=== PATIENT | female | born 1990 | race Caucasian/White ===

== ENCOUNTER 2016-06-02 10:20 | Emergency (ER) | payer BC ==
[~2016-06-02 10:20] MED LIST: MOTR200T44 PO; NORCOTAB PO
[2016-06-02] MEDS ORDERED: KETOROLAC 30 MG/ML VIAL (J1885) As Ordered ONE (10:46)
[2016-06-02] MEDS ORDERED: METOCLOPRAMIDE INJ 10MG/2ML VIAL (J2765) As Ordered ONE (10:46)
[2016-06-02 10:54] LABS: BASO % 0.2 % (0.0-1.0); EOS # 0.2 K/mm3 (0.0-0.50); EOS % 1.4 % (0.0-3.0); LARGE UNSTAINED CELL # 0.1 K/mm3 (0.0-0.4); LARGE UNSTAINED CELL % 0.4 % (0.0-4.0); LYMPH # 0.6 K/mm3 (1.5-6.5); MEAN CORPUSCULAR HEMOGLOBIN 30.7 pg (27.0-33.0); MEAN CORPUSCULAR HGB CONC 34.8 g/dl (32.0-36.5); MEAN CORPUSCULAR VOLUME 88.3 fl (80.0-96.0); MONO # 0.5 K/mm3 (0.0-0.8); NEUTROPHILS # 14.4 K/mm3 (1.8-7.7); NEUTROPHILS % 90.9 % (36.0-66.0); PLATELET COUNT, AUTOMATED 409 k/mm3 (150-450); RED CELL DISTRIBUTION WIDTH 11.8 % (11.5-14.5); WHITE BLOOD COUNT 15.8 K/mm3 (4.0-10.0)
[2016-06-02 11:30] LABS: ALBUMIN 4.7 GM/DL (3.2-5.2); ALBUMIN/GLOBULIN RATIO 1.42 (1.00-1.93); ALKALINE PHOSPHATASE 121 U/L (45-117); ALT/SGPT 29 U/L (12-78); AMYLASE 43 U/L (25-115); ANION GAP 12 MEQ/L (8-16); AST/SGOT 18 U/L (15-37); BILIRUBIN,DIRECT 0.2 MG/DL (0.0-0.2); BILIRUBIN,TOTAL 0.8 MG/DL (0.2-1.0); BLOOD UREA NITROGEN 19 MG/DL (7-18); CALCIUM LEVEL 8.9 MG/DL (8.5-10.1); CARBON DIOXIDE LEVEL 22 MEQ/L (21-32); CHLORIDE LEVEL 109 MEQ/L (98-107); CREATININE FOR GFR 1.04 MG/DL (0.55-1.02); GLOMERULAR FILTRATION RATE > 60.0 (>60); GLUCOSE, FASTING 124 MG/DL (70-105); POTASSIUM SERUM 3.9 MEQ/L (3.5-5.1); SODIUM LEVEL 143 MEQ/L (136-145)
[2016-06-02 11:36] LABS: THYROXINE (T4) 11.3 UG/DL (4.5-12.0)
--- NOTE | 2016-06-02 11:40 | REP ---
ABDOMEN FLAT UPRIGHT, PA CHEST, THREE VIEWS: HISTORY: Abdominal pain. COMPARISON: 03/06/2012 Air is present in small and large intestine. Several air fluid levels are present. There are no dilated loops of intestine. There is no pneumoperitoneum. Surgical clips are present in the right upper quadrant. There is spina bifida occulta of S1. The lungs are clear. IMPRESSION: Nonspecific bowel gas pattern. Signed by Nate Heck MD 06/02/2016 11:43 A
[2016-06-02] MEDS ORDERED: GI COCKTAIL 50ML BTL(HYOSCYAMINE/MAALOX/LIDOCAINE VISCOUS)(1:3:1) As Ordered ONE (13:00)
[2016-06-02] MEDS ORDERED: SUCRALFATE 1 GM TAB As Ordered ONE (13:38)
[2016-06-02 14:08] LABS: CONTROL LINE HCG INT CTR LINE PRESENT
[2016-06-02] MEDS ORDERED: ISOVUE-370 76% 100ML VIAL (Q9967) As Ordered ONE (14:32)
[2016-06-02] MEDS ORDERED: PROMETHAZINE INJ 25 MG/ML VIAL (J2550) As Ordered ONE (14:47)
--- NOTE | 2016-06-02 15:40 | REP ---
CT abdomen and pelvis with IV but without oral contrast: History: Abdominal pain. Comparison study February 05, 2016. Findings: Digital preliminary mat roller radiograph is unremarkable. A single tubal ligation clamp is visible on the right side of the pelvis. This is unchanged from the comparison study. The lung bases are clear. There is no evidence of pleural effusion or upper abdominal ascites. The liver and the spleen are normal in size, homogeneous in texture. There are clips in the gallbladder fossa. No adrenal lesion is seen on either side. Pancreas is unremarkable. Kidneys enhance symmetrically and are morphologically intact. Normal caliber aorta is seen. No retroperitoneal mass or adenopathy is seen. There is mild mural thickening in multiple jejunal and proximal ileal loops in the abdomen. No evidence of obstruction. No mass or adenopathy seen. There is fluid in the proximal and distal colon without distension. Mild mural thickening is seen in the colon as well. Nonspecific enterocolitis pattern. A normal appendix is seen. No evidence of free air. Impression: Nonspecific enterocolitis pattern in the small and large intestine with mild mural thickening and fluid content. Normal appendix. No other abnormality. Post cholecystectomy. A single tubal ligation clamp is seen on the right side. Signed by Papi Levy MD 06/02/2016 04:20 P
[2016-06-02] MEDS ORDERED: PANTOPRAZOLE 40MG INJ (PROTONIX) (C9113) As Ordered ONE (16:17)
[2016-06-02] MEDS ORDERED: ONDANSETRON 4MG/2ML VIAL (J2405) As Ordered ONE (16:18)
--- NOTE | 2016-06-02 18:39 | EDDOCDS ---
Physician Documentation [facility] Name: Christiane Martinez Age: 26 yrs Sex: Female : 1990 Arrival Date: 06/02/2016 Time: 10:20 Bed H4 Private MD: Cecilio Feldman MD Disposition: 06/02/16 16:59 Discharged to Home/Self Care. Impression: Vomiting, Diarrhea, unspecified. - Condition is Stable. - Discharge Instructions: Diarrhea, Clear Liquid Diet, Nausea and Vomiting, Diarrhea, [id number]. - Prescriptions for ZOFRAN ODT 4 mg - dissolve 1 tablet by ORAL route 4 times per day As needed do not chew, do not swallow whole; 10 tablet. - Medication Reconciliation, Local Pharmacy Hours, Work Release Form - 2 day form. - Follow up: Emergency Department; When: Tomorrow; Reason: Recheck today's complaints. - Problem is new. - Symptoms have improved. Historical: - Allergies: Morphine; Dilaudid (increases abdomenial pain ); - Home Meds: 1. Chantix 1 mg Oral tab 1 tab 2 times per day - PMHx: none; - PSHx: Laparoscopy; Bunion Surgery; Salpingectomy- Left; Tubal ligation; X 2; lysis of adhesions; Cholecystectomy; - Social history: Smoking status: Patient states former smoker of tobacco. No barriers to communication noted, The patient speaks fluent Sami, Speaks appropriately for age. - Family history: Not pertinent. - : The pt / caregiver states he / she is not on anticoagulants. Home medication list is obtained from the patient. - Exposure Risk Screening:: None identified. 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 6 in. (167.64 cm); Pain 10/10; 10:34 BP 127 / 86 (auto/); ms2 10:35 Pulse 140 MON; Resp 20 S; Pulse Ox 98% ; ms2 10:49 BP 144 / 79 (auto/); ead 10:50 Pulse 120 MON; Resp 20; Pulse Ox 99% on R/A; ead 11:04 BP 134 / 66 (auto/); ms2 11:05 Pulse 108 MON; Resp 22 S; Pulse Ox 98% ; ms2 11:18 BP 135 / 66 (auto/); ms2 11:19 Pulse 112 MON; Resp 20 S; Pulse Ox 97% ; ms2 11:33 BP 131 / 62 (auto/); ms2 11:34 Pulse 102 MON; Resp 20 S; Pulse Ox 98% ; ms2 11:48 BP 127 / 63 (auto/); ms2 11:49 Pulse 100 MON; Resp 20; Pulse Ox 99% ; ms2 12:03 BP 111 / 58 (auto/); ms2 12:04 Pulse 100 MON; Resp 20 S; Pulse Ox 98% ; ms2 12:18 BP 100 / 59 (auto/); ms2 12:19 Pulse 94 MON; Resp 20 S; Pulse Ox 97% ; ms2 12:33 BP 120 / 66 (auto/); ms2 12:33 Pulse 106 MON; Resp 20 S; Pulse Ox 98% ; ms2 12:48 BP 121 / 68 (auto/); ms2 12:49 Pulse 90 MON; Resp 20 S; Pulse Ox 98% ; ms2 13:18 BP 115 / 57 (auto/); ms2 13:18 Pulse 100 MON; Resp 20 S; Pulse Ox 97% ; ms2 13:33 BP 116 / 58 (auto/); ms2 13:34 Pulse 90 MON; Resp 20 S; Pulse Ox 98% ; ms2 13:48 BP 114 / 56 (auto/); ms2 13:49 Pulse 90 MON; Resp 20 S; Pulse Ox 99% ; ms2 14:03 BP 136 / 78 (auto/); ms2 14:03 Pulse 106 MON; Resp 20 S; ms2 14:18 BP 127 / 67 (auto/); ms2 14:18 Pulse 112 MON; Resp 20 S; ms2 14:54 BP 134 / 76 (auto/); ms2 14:55 Pulse 110 MON; Resp 20 S; Pulse Ox 98% ; ms2 15:03 BP 133 / 76 (auto/); ms2 15:03 Pulse 108 MON; Resp 20 S; Pulse Ox 98% ; ms2 15:18 BP 128 / 68 (auto/); ms2 15:18 Pulse 118 MON; Resp 20 S; ms2 15:33 BP 128 / 61 (auto/); ms2 15:34 Pulse 102 MON; Resp 20 S; ms2 15:48 BP 130 / 63 (auto/); ms2 15:49 Pulse 98 MON; Resp 20 S; ms2 16:03 BP 130 / 62 (auto/); ms2 16:04 Pulse 102 MON; Resp 20 S; ms2 16:18 BP 129 / 61 (auto/); ms2 16:19 Pulse 104 MON; Resp 20 S; ms2 16:33 BP 122 / 59 (auto/); ms2 16:33 Pulse 94 MON; Resp 20 S; ms2 16:49 BP 129 / 61 (auto/); ms2 16:50 Pulse 96 MON; Resp 20 S; ms2 17:04 BP 130 / 63 (auto/); ms2 17:05 Pulse 86 MON; Resp 20 S; ms2 17:19 BP 130 / 65 (auto/); ms2 17:20 Pulse 90 MON; Resp 20 S; ms2 17:49 BP 125 / 68; Pulse 112; Resp 20 S; ms2 10:22 Body Mass Index 34.70 (97.52 kg, 167.64 cm) sew MDM: 10:43 Undress patient appropriately for examination ordered. sd1 10:43 NS 0.9% 1000 ml IV at bolus once ordered. sd1 10:43 Metoclopramide 10 mg IV at 40 mg/hr once over 15 mins ordered. sd1 10:43 ketorolac 30 mg IVP once ordered. sd1 10:44 Amylase Ordered. EDMS 10:44 Basic Metabolic Profile Ordered. EDMS 10:44 CBC with Diff Ordered. EDMS 10:44 Lipase Ordered. EDMS 10:44 Liver Profile Ordered. EDMS 10:44 HCG,Serum Qualitative Ordered. EDMS 10:44 Abdomen, Flat\E\Upright,PA Chest Ordered. EDMS 10:44 NOTHING BY MOUTH+DIET ordered. EDMS 10:44 Thyroid Profile Ordered. EDMS 12:05 Basic Metabolic Profile Reviewed. sd1 12:05 CBC with Diff Reviewed. sd1 12:05 Liver Profile Reviewed. sd1 12:05 Thyroid Profile Reviewed. sd1 12:05 Amylase Reviewed. sd1 12:05 Lipase Reviewed. sd1 12:31 Abdomen, Flat\E\Upright,PA Chest Reviewed. sd1 12:33 GI Cocktail - (Alum-Mag Hydroxide-Simeth 30 ml, Lidocaine 10 ml, Hyoscyamine 10 ml) PO sd1 once; Pre-mixed 50mL unit dose ordered. 13:19 Sucralfate 1 grams PO once ordered. sd1 13:32 CLEAR LIQUID+DIET ordered. EDMS 14:18 Basic Metabolic Profile Reviewed. sd1 14:18 Liver Profile Reviewed. sd1 14:18 Amylase Reviewed. sd1 14:18 Lipase Reviewed. sd1 14:18 HCG,Serum Qualitative Reviewed. sd1 14:19 Promethazine 25 mg IVP once; dilute and administer 30-60 minutes ordered. sd1 14:29 CT ABD & PELVIS: IV Contrast Only Ordered. EDMS 15:13 pantoprazole 40 mg IV at bolus once ordered. sd1 15:13 Ondansetron 4 mg IVP once ordered. sd1 15:16 [facility] Payment Agreement was scanned into [employer] and attached to record. jp5 15:16 Financial registration complete. jp5 15:40 NS 0.9% 1000 ml IV at bolus once ordered. sd1 Administered Medications: 10:44 Drug: NS 0.9% 1000 ml [sodium chloride 0.9 % intravenous solution] Route: IV; Rate: ead bolus; Site: right antecubital; 10:54 Drug: Metoclopramide 10 mg [metoclopramide 5 mg/mL injection solution] Route: IV; Rate: ead 40 mg/hr; Infused Over: 15 mins; Site: right antecubital; 10:54 Drug: ketorolac 30 mg [ketorolac 30 mg/mL (1 mL) injection solution (1 mL)] Route: IVP; ead Site: right antecubital; 12:04 Drug: GI Cocktail - (Alum-Mag Hydroxide-Simeth Suspension 225 mg-200 mg-25 mg/5 mL 30 ms2 ml, Lidocaine Liquid 2 % 10 ml, Hyoscyamine Liquid 10 ml) Route: PO; 13:39 Drug: Sucralfate 1 grams [sucralfate 1 gram tablet (1 tabs)] Route: PO; ms2 14:55 Drug: Promethazine 25 mg [promethazine 25 mg/mL injection solution (1 mL)] Route: IVP; ms2 Site: right antecubital; 16:25 Drug: Ondansetron 4 mg Route: IVP; Site: right antecubital; ms2 16:25 Drug: NS 0.9% 1000 ml [sodium chloride 0.9 % intravenous solution] Route: IV; Rate: ms2 bolus; Site: right antecubital; 16:26 Drug: pantoprazole 40 mg [pantoprazole 40 mg intravenous solution] Route: IV; Rate: ms2 bolus; Site: right antecubital; Signatures: Dispatcher [employer] Bina Booker MD MD sd1 Raul WillRN RN ms2 Saurabh Bunch RN RN mlb1 Luis Del Cid jp5 Apryl Wong RN The chart was reviewed and I authenticate all verbal orders and agree with the evaluation and treatment provided.Corrections: (The following items were deleted from the chart) 10:37 10:35 Home Meds: none; mlb1 mlb1 Attachments: 15:16 [facility] Payment Agreement jp5 MTDD
--- NOTE | 2016-06-02 18:40 | EDDOCDS ---
Nurse's Notes [facility] Name: Christiane Martinez Age: 26 yrs Sex: Female : 1990 Arrival Date: 06/02/2016 Time: 10:20 Bed H4 Private MD: Cecilio Feldman MD Diagnosis: Vomiting;Diarrhea, unspecified Presentation: 06/02 10:31 Presenting complaint: Patient states: Awoke at 0200 this am with chest, abdominal pain mlb1 with nausea/ vomiting. Risk factors: the patient reports no vaginal bleeding. 10:53 Adult Sepsis Screening: The patient does not have new or worsening altered mentation. mlb1 Patient's respiratory rate is less than 22. Systolic blood pressure is greater than 100. Patient has a qSOFA score of 0- Negative Sepsis Screen. Suicide/Homicide risk assessment- the patient denies having any suicidal and/or homicidal ideations and does not present with any other emotional, behavioral or mental health complaints. Status: Patient is not a manager office services or dependent. Transition of care: patient was not received from another setting of care. 10:53 Acuity: SAIDA Level 3 mlb1 10:53 Method Of Arrival: Walkin/Carried/Asstd mlb1 Triage Assessment: 10:35 General: Appears distressed, Behavior is crying. Pain: Location: anterior aspect of mlb1 left upper chest, RUQ, RLQ Pain currently is 8 out of 10 on a pain scale. HIV screening NA for this visit Offered previously. GI: Reports nausea, vomiting. CRITICAL CARE NURSE: 10:37 LMP 05/15/2016 mlb1 Historical: - Allergies: Morphine; Dilaudid (increases abdomenial pain ); - Home Meds: 1. Chantix 1 mg Oral tab 1 tab 2 times per day - PMHx: none; - PSHx: Laparoscopy; Bunion Surgery; Salpingectomy- Left; Tubal ligation; X 2; lysis of adhesions; Cholecystectomy; - Social history: Smoking status: Patient states former smoker of tobacco. No barriers to communication noted, The patient speaks fluent Swedish, Speaks appropriately for age. - Family history: Not pertinent. - : The pt / caregiver states he / she is not on anticoagulants. Home medication list is obtained from the patient. - Exposure Risk Screening:: None identified. Screenin:51 Screening information is obtained from prior medical records. Fall risk: No risks ms2 identified. Assistance ADL's: requires no assistance with activities of daily living. Abuse/DV Screen: The patient / caregiver reports he/she is: not in a situation that causes fear, pain or injury. Nutritional screening: No deficits noted. Advance Directives: Currently, there is no health care proxy. There is no active DNR order. There is no living will. There is no Power of Oil Rig Driller. Advance directive information has not previously been placed in an [facility] medical record. Further advance directive information is declined. home support is adequate. Assessment: 11:20 General: first contact with pt---pt noted to be teary at times---parents with pt ---pt ms2 requesting ice chips-mouth dry. Neurological: Level of Consciousness is awake, alert, obeys commands. Cardiovascular: Rhythm is sinus rhythm No ectopy. Respiratory: No deficits noted. Airway is patent Respiratory effort is even, unlabored, Respiratory pattern is regular, symmetrical. GI: Abdomen is non- distended obese. Derm: Skin is pink, warm & dry. Musculoskeletal: Range of motion intact in all extremities. 12:59 General: Appears in no apparent distress, comfortable, Behavior is cooperative. Pain: ms2 Location: abdome Pain currently is 6 out of 10 on a pain scale. Neurological: No deficits noted. Cardiovascular: Rhythm is sinus rhythm No ectopy. Respiratory: No deficits noted. GI: Abdomen is non- distended obese. Derm: Skin is pink, warm & dry. Musculoskeletal: No deficits noted. 13:40 Adult Sepsis Screening: The patient does not have new or worsening altered mentation. ms2 Patient's respiratory rate is less than 22. Systolic blood pressure is greater than 100. Patient has a qSOFA score of 0- Negative Sepsis Screen. General: Appears in no apparent distress, resting --pain decreased. Behavior is cooperative. Pain: Pain currently is 4 out of 10 on a pain scale. Neurological: No deficits noted. Cardiovascular: Rhythm is sinus rhythm. Respiratory: No deficits noted. Derm: Skin is pink, warm & dry. Musculoskeletal: No deficits noted. 14:47 General: Appears in no apparent distress, nauseated --pt aware to receive for this. to ms2 and from ct --no reaction to ct contrast. Neurological: No deficits noted. Respiratory: Respiratory effort is even, unlabored. Derm: Skin is pink, warm & dry. 15:28 General: Appears in no apparent distress, Behavior is cooperative. Neurological: No ms2 deficits noted. Cardiovascular: Rhythm is sinus rhythm. Respiratory: No deficits noted. Derm: Skin is pink, warm & dry. Musculoskeletal: Range of motion intact in all extremities. 16:25 Adult Sepsis Screening: The patient does not have new or worsening altered mentation. ms2 Patient's respiratory rate is less than 22. Systolic blood pressure is greater than 100. Patient has a qSOFA score of 0- Negative Sepsis Screen. General: Appears in no apparent distress, was asleep. Neurological: No deficits noted. Cardiovascular: Rhythm is sinus rhythm. Respiratory: No deficits noted. GI: Abdomen is non- distended obese. Derm: Skin is pink, warm & dry. Musculoskeletal: Range of motion intact in all extremities. 17:46 General: Appears in no apparent distress, was sleeping --father here now. Behavior is ms2 cooperative. Pain: Pain currently is 2 out of 10 on a pain scale. Neurological: Level of Consciousness is awake, alert, obeys commands. Cardiovascular: Rhythm is sinus rhythm No ectopy. Respiratory: Airway is patent Respiratory effort is even, unlabored, Respiratory pattern is regular, symmetrical. GI: Abdomen is non- distended obese. Derm: Skin is pink, warm & dry. Musculoskeletal: Range of motion intact in all extremities. Vital Signs: 10:22 BP 132 / 86; Pulse 143; Resp 18; Temp 99.8(O); Pulse Ox 97% on R/A; Weight 97.52 kg; sew Height 5 ft. 6 in. (167.64 cm); Pain 10/10; 10:34 BP 127 / 86 (auto/); ms2 10:35 Pulse 140 MON; Resp 20 S; Pulse Ox 98% ; ms2 10:49 BP 144 / 79 (auto/); ead 10:50 Pulse 120 MON; Resp 20; Pulse Ox 99% on R/A; ead 11:04 BP 134 / 66 (auto/); ms2 11:05 Pulse 108 MON; Resp 22 S; Pulse Ox 98% ; ms2 11:18 BP 135 / 66 (auto/); ms2 11:19 Pulse 112 MON; Resp 20 S; Pulse Ox 97% ; ms2 11:33 BP 131 / 62 (auto/); ms2 11:34 Pulse 102 MON; Resp 20 S; Pulse Ox 98% ; ms2 11:48 BP 127 / 63 (auto/); ms2 11:49 Pulse 100 MON; Resp 20; Pulse Ox 99% ; ms2 12:03 BP 111 / 58 (auto/); ms2 12:04 Pulse 100 MON; Resp 20 S; Pulse Ox 98% ; ms2 12:18 BP 100 / 59 (auto/); ms2 12:19 Pulse 94 MON; Resp 20 S; Pulse Ox 97% ; ms2 12:33 BP 120 / 66 (auto/); ms2 12:33 Pulse 106 MON; Resp 20 S; Pulse Ox 98% ; ms2 12:48 BP 121 / 68 (auto/); ms2 12:49 Pulse 90 MON; Resp 20 S; Pulse Ox 98% ; ms2 13:18 BP 115 / 57 (auto/); ms2 13:18 Pulse 100 MON; Resp 20 S; Pulse Ox 97% ; ms2 13:33 BP 116 / 58 (auto/); ms2 13:34 Pulse 90 MON; Resp 20 S; Pulse Ox 98% ; ms2 13:48 BP 114 / 56 (auto/); ms2 13:49 Pulse 90 MON; Resp 20 S; Pulse Ox 99% ; ms2 14:03 BP 136 / 78 (auto/); ms2 14:03 Pulse 106 MON; Resp 20 S; ms2 14:18 BP 127 / 67 (auto/); ms2 14:18 Pulse 112 MON; Resp 20 S; ms2 14:54 BP 134 / 76 (auto/); ms2 14:55 Pulse 110 MON; Resp 20 S; Pulse Ox 98% ; ms2 15:03 BP 133 / 76 (auto/); ms2 15:03 Pulse 108 MON; Resp 20 S; Pulse Ox 98% ; ms2 15:18 BP 128 / 68 (auto/); ms2 15:18 Pulse 118 MON; Resp 20 S; ms2 15:33 BP 128 / 61 (auto/); ms2 15:34 Pulse 102 MON; Resp 20 S; ms2 15:48 BP 130 / 63 (auto/); ms2 15:49 Pulse 98 MON; Resp 20 S; ms2 16:03 BP 130 / 62 (auto/); ms2 16:04 Pulse 102 MON; Resp 20 S; ms2 16:18 BP 129 / 61 (auto/); ms2 16:19 Pulse 104 MON; Resp 20 S; ms2 16:33 BP 122 / 59 (auto/); ms2 16:33 Pulse 94 MON; Resp 20 S; ms2 16:49 BP 129 / 61 (auto/); ms2 16:50 Pulse 96 MON; Resp 20 S; ms2 17:04 BP 130 / 63 (auto/); ms2 17:05 Pulse 86 MON; Resp 20 S; ms2 17:19 BP 130 / 65 (auto/); ms2 17:20 Pulse 90 MON; Resp 20 S; ms2 17:49 BP 125 / 68; Pulse 112; Resp 20 S; ms2 10:22 Body Mass Index 34.70 (97.52 kg, 167.64 cm) sew Vitals: 10:22 Log In Time: June 02, 2016 at 10:12. RN notified that patient meets Red Flag sew criteria. ED Course: 10:22 Patient visited by Bina Staton. sew 10:22 Cecilio Feldman is Private Physician. sew 10:22 Patient moved to Waiting sew 10:24 Patient visited by Bina Staton. sew 10:29 Apryl Wong RN is Primary Nurse. sew 10:29 Patient moved to 4 sew 10:31 Patient visited by Saurabh Bunch, PADMAJA. mlb1 10:37 Bina Cowan MD is Attending Physician. sd1 10:37 Patient visited by Bina Cowan MD. sd1 10:37 Patient visited by Saurabh Bunch, PADMAJA. mlb1 10:44 Liver Profile Sent. ead 10:44 Lipase Sent. ead 10:44 Amylase Sent. ead 10:44 Basic Metabolic Profile Sent. ead 10:44 CBC with Diff Sent. ead 10:45 Inserted peripheral IV: 18gauge IV in right antecubital area and blood collected. ead Patient tolerated the procedure well. 10:54 Patient visited by Apryl Wong RN. ead 10:54 Triage Initiated mlb1 10:56 The patient / caregiver is instructed regarding the plan of care and ED course. Patient ead has correct armband on for positive identification. Placed in gown. Bed in low position. Call light in reach. Side rails up X 1. Adult w/ patient. bus driver/monitor on. Pulse ox on. NIBP on. 11:20 The patient / caregiver is instructed regarding the plan of care and ED course. Cardiac ms2 monitor on. Pulse ox on. NIBP on. 11:20 No procedures done that require assistance. ms2 11:20 IV is intact, is free of redness or swelling. ms2 11:30 Patient visited by Katerine Rodrigues PCA. jlf 11:46 Raul Will RN is Primary Nurse. ms2 12:05 Abdomen, Flat\E\Upright,PA Chest Returned. EDMS 12:59 bus driver/monitor on. Pulse ox on. NIBP on. ms2 12:59 IV is patent, is intact, is free of redness or swelling. ms2 13:06 Patient visited by Raul Will RN. ms2 13:09 The patient / caregiver is instructed regarding the plan of care and ED course. ms2 13:39 Patient visited by Raul Will RN. ms2 13:41 The patient / caregiver is instructed regarding the plan of care and ED course. Cardiac ms2 monitor on. Pulse ox on. NIBP on. 13:41 IV is intact, is free of redness or swelling. ms2 14:38 Patient visited by Raul Will RN. ms2 14:47 The patient / caregiver is instructed regarding the plan of care and ED course. Cardiac ms2 monitor on. Pulse ox on. NIBP on. 14:47 IV is patent, is intact, is free of redness or swelling. solution is infusing as ms2 ordered. 14:57 Patient visited by Raul Will RN. ms2 15:16 [facility] Payment Agreement was scanned into [email or web address] and attached to record. jp5 15:27 Patient visited by Katerine Rodrigues PCA. jlf 15:28 The patient / caregiver is instructed regarding the plan of care and ED course. Cardiac ms2 monitor on. Pulse ox on. NIBP on. 15:28 IV is intact, is free of redness or swelling. ms2 16:16 Patient visited by Raul Will RN. ms2 16:20 CT ABD & PELVIS: IV Contrast Only Returned. EDMS 16:25 The patient / caregiver is instructed regarding the plan of care and ED course. Cardiac ms2 monitor on. Pulse ox on. NIBP on. 16:32 IV is patent, is intact, is free of redness or swelling. solution is infusing as ms2 ordered. 17:46 Patient visited by Raul Will RN. ms2 17:47 The patient / caregiver is instructed regarding the plan of care and ED course. monitor ms2 dc'd. 17:47 Discontinued IV intact, bleeding controlled, pressure dressing applied, No ms2 redness/swelling at site. 18:22 Patient moved to [facility] Administered Medications: 10:44 Drug: NS 0.9% 1000 ml [sodium chloride 0.9 % intravenous solution] Route: IV; Rate: ead bolus; Site: right antecubital; 10:54 Drug: Metoclopramide 10 mg [metoclopramide 5 mg/mL injection solution] Route: IV; Rate: ead 40 mg/hr; Infused Over: 15 mins; Site: right antecubital; 10:54 Drug: ketorolac 30 mg [ketorolac 30 mg/mL (1 mL) injection solution (1 mL)] Route: IVP; ead Site: right antecubital; 12:04 Drug: GI Cocktail - (Alum-Mag Hydroxide-Simeth Suspension 225 mg-200 mg-25 mg/5 mL 30 ms2 ml, Lidocaine Liquid 2 % 10 ml, Hyoscyamine Liquid 10 ml) Route: PO; 13:39 Drug: Sucralfate 1 grams [sucralfate 1 gram tablet (1 tabs)] Route: PO; ms2 14:55 Drug: Promethazine 25 mg [promethazine 25 mg/mL injection solution (1 mL)] Route: IVP; ms2 Site: right antecubital; 16:25 Drug: Ondansetron 4 mg Route: IVP; Site: right antecubital; ms2 16:25 Drug: NS 0.9% 1000 ml [sodium chloride 0.9 % intravenous solution] Route: IV; Rate: ms2 bolus; Site: right antecubital; 16:26 Drug: pantoprazole 40 mg [pantoprazole 40 mg intravenous solution] Route: IV; Rate: ms2 bolus; Site: right antecubital; Intake: 13:10 PO: 120.00ml; IV: 1000.00ml (NS); Total: 1120.00ml. ms2 17:49 PO: 100.00ml; IV: 1000.00ml (NS); Total: 2220.00ml. ms2 13:10 voided x1 and diarrhea x2 per pt ms2 Order Results: Lab Order: Amylase; SPEC'M 06/02/16 10:43 Test: AMYLASE; Value: 43; Range: 25-115; Units: U/L; Status: F Lab Order: Basic Metabolic Profile; SPEC'M 06/02/16 10:43 Test: GLUCOSE, FASTING; Value: 124; Range: 70-105; Abnormal: Above high normal; Units: MG/DL; Status: F Test: BLOOD UREA NITROGEN; Value: 19; Range: 7-18; Abnormal: Above high normal; Units: MG/DL; Status: F Test: CREATININE FOR GFR; Value: 1.04; Range: 0.55-1.02; Abnormal: Above high normal; Units: MG/DL; Status: F Test: GLOMERULAR FILTRATION RATE; Value: > 60.0; Range: >60; Status: F Test: SODIUM LEVEL; Value: 143; Range: 136-145; Units: MEQ/L; Status: F Test: POTASSIUM SERUM; Value: 3.9; Range: 3.5-5.1; Units: MEQ/L; Status: F Test: CHLORIDE LEVEL; Value: 109; Range: 98-107; Abnormal: Above high normal; Units: MEQ/L; Status: F Test: CARBON DIOXIDE LEVEL; Value: 22; Range: 21-32; Units: MEQ/L; Status: F Test: ANION GAP; Value: 12; Range: 8-16; Units: MEQ/L; Status: F Test: CALCIUM LEVEL; Value: 8.9; Range: 8.5-10.1; Units: MG/DL; Status: F Test Note: ; Units are mL/min/1.73 m2 Chronic Kidney Disease Staging per NKF: Stage I & II GFR >=60 Normal to Mildly Decreased Stage III GFR 30-59 Moderately Decreased Stage IV GFR 15-29 Severely Decreased Stage V GFR <15 Very Little GFR Left ESRD GFR <15 on CORRESPONDENCE COORDINATOR Lab Order: CBC with Diff; SPEC'M 06/02/16 10:43 Test: WHITE BLOOD COUNT; Value: 15.8; Range: 4.0-10.0; Abnormal: Above high normal; Units: K/mm3; Status: F Test: RED BLOOD COUNT; Value: 5.23; Range: 4.00-5.40; Units: M/mm3; Status: F Test: HEMOGLOBIN; Value: 16.1; Range: 12.0-16.0; Abnormal: Above high normal; Units: g/dl; Status: F Test: HEMATOCRIT; Value: 46.2; Range: 36.0-47.0; Units: %; Status: F Test: MEAN CORPUSCULAR VOLUME; Value: 88.3; Range: 80.0-96.0; Units: fl; Status: F Test: MEAN CORPUSCULAR HEMOGLOBIN; Value: 30.7; Range: 27.0-33.0; Units: pg; Status: F Test: MEAN CORPUSCULAR HGB CONC; Value: 34.8; Range: 32.0-36.5; Units: g/dl; Status: F Test: RED CELL DISTRIBUTION WIDTH; Value: 11.8; Range: 11.5-14.5; Units: %; Status: F Test: PLATELET COUNT, AUTOMATED; Value: 409; Range: 150-450; Units: k/mm3; Status: F Test: NEUTROPHILS %; Value: 90.9; Range: 36.0-66.0; Abnormal: Above high normal; Units: %; Status: F Test: LYMPH %; Value: 4.0; Range: 24.0-44.0; Abnormal: Below low normal; Units: %; Status: F Test: MONO %; Value: 3.0; Range: 0.0-5.0; Units: %; Status: F Test: EOS %; Value: 1.4; Range: 0.0-3.0; Units: %; Status: F Test: BASO %; Value: 0.2; Range: 0.0-1.0; Units: %; Status: F Test: LARGE UNSTAINED CELL %; Value: 0.4; Range: 0.0-4.0; Units: %; Status: F Test: NEUTROPHILS #; Value: 14.4; Range: 1.8-7.7; Abnormal: Above high normal; Units: K/mm3; Status: F Test: LYMPH #; Value: 0.6; Range: 1.5-6.5; Abnormal: Below low normal; Units: K/mm3; Status: F Test: MONO #; Value: 0.5; Range: 0.0-0.8; Units: K/mm3; Status: F Test: EOS #; Value: 0.2; Range: 0.0-0.50; Units: K/mm3; Status: F Test: BASO #; Value: 0.0; Range: 0.0-0.2; Units: K/mm3; Status: F Test: LARGE UNSTAINED CELL #; Value: 0.1; Range: 0.0-0.4; Units: K/mm3; Status: F Lab Order: Lipase; [facility] 06/02/16 10:43 Test: LIPASE; Value: 106; Range: 73-393; Units: U/L; Status: F Lab Order: Liver Profile; [facility] 06/02/16 10:43 Test: AST/SGOT; Value: 18; Range: 15-37; Units: U/L; Status: F Test: ALT/SGPT; Value: 29; Range: 12-78; Units: U/L; Status: F Test: ALKALINE PHOSPHATASE; Value: 121; Range: 45-117; Abnormal: Above high normal; Units: U/L; Status: F Test: BILIRUBIN,TOTAL; Value: 0.8; Range: 0.2-1.0; Units: MG/DL; Status: F Test: BILIRUBIN,DIRECT; Value: 0.2; Range: 0.0-0.2; Units: MG/DL; Status: F Test: TOTAL PROTEIN; Value: 8.0; Range: 6.4-8.2; Units: GM/DL; Status: F Test: ALBUMIN; Value: 4.7; Range: 3.2-5.2; Units: GM/DL; Status: F Test: ALBUMIN/GLOBULIN RATIO; Value: 1.42; Range: 1.00-1.93; Status: F Lab Order: HCG,Serum Qualitative; [facility] 06/02/16 10:43 Test: HCG, SERUM QUALITATIVE; Value: NEGATIVE; Range: NEGATIVE; Status: F Lab Order: Thyroid Profile; [facility] 06/02/16 10:43 Test: T UPTAKE; Value: 33; Range: 30-39; Units: %; Status: F Test: THYROXINE (T4); Value: 11.3; Range: 4.5-12.0; Units: UG/DL; Status: F Test: FREE THYROXINE INDEX; Value: 3.7; Range: 1.3-4.8; Units: %; Status: F Test: THYROID STIMULATING HORMONE; Value: 0.337; Range: 0.358-3.740; Abnormal: Below low normal; Units: uIU/ML; Status: F Radiology Order: Abdomen, Flat\E\Upright,PA Chest Test: Abdomen, Flat\E\Upright,PA Chest REASON FOR EXAMINATION: Abdomen Pain; ABDOMEN FLAT UPRIGHT, PA CHEST, THREE VIEWS:; ; HISTORY: Abdominal pain.; ; COMPARISON: 03/06/2012; ; Air is present in small and large intestine. Several air fluid levels are; present. There are no dilated loops of intestine. There is no pneumoperitoneum.; Surgical clips are present in the right upper quadrant. There is spina bifida; occulta of S1. The lungs are clear.; ; IMPRESSION:; ; Nonspecific bowel gas pattern.; ; ; Signed by; Nate Heck MD 06/02/2016 11:43 A; Radiology Order: CT ABD & PELVIS: IV Contrast Only Test: CT ABD & PELVIS: IV Contrast Only REASON FOR EXAMINATION: Abdomen Pain; CT abdomen and pelvis with IV but without oral contrast:; ; History: Abdominal pain.; ; Comparison study February 05, 2016.; ; Findings: Digital preliminary dietary services director radiograph is unremarkable. A single tubal; ligation clamp is visible on the right side of the pelvis. This is unchanged; from the comparison study.; ; The lung bases are clear. There is no evidence of pleural effusion or upper; abdominal ascites.; ; The liver and the spleen are normal in size, homogeneous in texture. There are; clips in the gallbladder fossa. No adrenal lesion is seen on either side.; Pancreas is unremarkable. Kidneys enhance symmetrically and are morphologically; intact. Normal caliber aorta is seen. No retroperitoneal mass or adenopathy is; seen. There is mild mural thickening in multiple jejunal and proximal ileal; loops in the abdomen. No evidence of obstruction. No mass or adenopathy seen.; There is fluid in the proximal and distal colon without distension. Mild mural; thickening is seen in the colon as well. Nonspecific enterocolitis pattern. A; normal appendix is seen. No evidence of free air.; ; Impression:; ; Nonspecific enterocolitis pattern in the small and large intestine with mild; mural thickening and fluid content. Normal appendix. No other abnormality.; Post cholecystectomy. A single tubal ligation clamp is seen on the right side.; ; ; Signed by; Papi Levy MD 06/02/2016 04:20 P; Outcome: 16:59 Discharge ordered by Provider. sd1 17:47 Discharge Assessment: patient administered narcotics - no. The following High Risk ms2 Discharge criteria are identified: None. Discharged to home ambulatory, with parent. Condition: stable. Discharge instructions given to patient, Instructed on discharge instructions, follow up and referral plans. medication usage, Demonstrated understanding of instructions, medications, Pt was receptive of discharge instructions/ teaching. CT Study completed. Property sent home with patient. 18:38 Patient left the ED. ms2 Signatures: Dispatcher [employer] EDMS Bina Cowan MD MD sd1 Cathy Howell, RN RN kcs Raul WillRN RN ms2 Saurabh Bunch RN RN mlBina Sanchez Jordain, [employer] PROGRAM MANAGER Apryl Lomeli,RN RN Luis Herron jp5 Corrections: (The following items were deleted from the chart) 10:37 10:35 Home Meds: none; mlb1 mlb1 12:03 11:20 No procedures done that require assistance ms2 ms2 12:03 11:20 No IV's were initiated during this patient's visit ms2 ms2 EMANUELD
--- NOTE | 2016-06-04 19:39 | EDDOCDS ---
Nurse's Notes [facility] Name: Christiane Martinez Age: 26 yrs Sex: Female : 1990 Arrival Date: 06/02/2016 Time: 10:20 Bed H4 Private MD: Cecilio Feldman MD Diagnosis: Vomiting;Diarrhea, unspecified Presentation: 06/02 10:31 Presenting complaint: Patient states: Awoke at 0200 this am with chest, abdominal pain mlb1 with nausea/ vomiting. Risk factors: the patient reports no vaginal bleeding. 10:53 Adult Sepsis Screening: The patient does not have new or worsening altered mentation. mlb1 Patient's respiratory rate is less than 22. Systolic blood pressure is greater than 100. Patient has a qSOFA score of 0- Negative Sepsis Screen. Suicide/Homicide risk assessment- the patient denies having any suicidal and/or homicidal ideations and does not present with any other emotional, behavioral or mental health complaints. Status: Patient is not a sales agent financial report service or dependent. Transition of care: patient was not received from another setting of care. 10:53 Acuity: SAIDA Level 3 mlb1 10:53 Method Of Arrival: Walkin/Carried/Asstd mlb1 Triage Assessment: 10:35 General: Appears distressed, Behavior is crying. Pain: Location: anterior aspect of mlb1 left upper chest, RUQ, RLQ Pain currently is 8 out of 10 on a pain scale. HIV screening NA for this visit Offered previously. GI: Reports nausea, vomiting. 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 Chantix 1 mg Oral tab 1 tab 2 times per day - PMHx: none; - PSHx: Laparoscopy; Bunion Surgery; Salpingectomy- Left; Tubal ligation; X 2; lysis of adhesions; Cholecystectomy; - Social history: Smoking status: Patient states former smoker of tobacco. No barriers to communication noted, The patient speaks fluent Japanese, Speaks appropriately for age. - Family history: Not pertinent. - : The pt / caregiver states he / she is not on anticoagulants. Home medication list is obtained from the patient. - Exposure Risk Screening:: None identified. Screenin:51 Screening information is obtained from prior medical records. Fall risk: No risks ms2 identified. Assistance ADL's: requires no assistance with activities of daily living. Abuse/DV Screen: The patient / caregiver reports he/she is: not in a situation that causes fear, pain or injury. Nutritional screening: No deficits noted. Advance Directives: Currently, there is no health care proxy. There is no active DNR order. There is no living will. 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 Advance directive information has not previously been placed in an [facility] medical record. Further advance directive information is declined. home support is adequate. Assessment: 11:20 General: first contact with pt---pt noted to be teary at times---parents with pt ---pt ms2 requesting ice chips-mouth dry. Neurological: Level of Consciousness is awake, alert, obeys commands. Cardiovascular: Rhythm is sinus rhythm No ectopy. Respiratory: No deficits noted. Airway is patent Respiratory effort is even, unlabored, Respiratory pattern is regular, symmetrical. GI: Abdomen is non- distended obese. Derm: Skin is pink, warm & dry. Musculoskeletal: Range of motion intact in all extremities. 12:59 General: Appears in no apparent distress, comfortable, Behavior is cooperative. Pain: ms2 Location: abdome Pain currently is 6 out of 10 on a pain scale. Neurological: No deficits noted. Cardiovascular: Rhythm is sinus rhythm No ectopy. Respiratory: No deficits noted. GI: Abdomen is non- distended obese. Derm: Skin is pink, warm & dry. Musculoskeletal: No deficits noted. 13:40 Adult Sepsis Screening: The patient does not have new or worsening altered mentation. ms2 Patient's respiratory rate is less than 22. Systolic blood pressure is greater than 100. Patient has a qSOFA score of 0- Negative Sepsis Screen. General: Appears in no apparent distress, resting --pain decreased. Behavior is cooperative. Pain: Pain currently is 4 out of 10 on a pain scale. Neurological: No deficits noted. Cardiovascular: Rhythm is sinus rhythm. Respiratory: No deficits noted. Derm: Skin is pink, warm & dry. Musculoskeletal: No deficits noted. 14:47 General: Appears in no apparent distress, nauseated --pt aware to receive for this. to ms2 and from ct --no reaction to ct contrast. Neurological: No deficits noted. Respiratory: Respiratory effort is even, unlabored. Derm: Skin is pink, warm & dry. 15:28 General: Appears in no apparent distress, Behavior is cooperative. Neurological: No ms2 deficits noted. Cardiovascular: Rhythm is sinus rhythm. Respiratory: No deficits noted. Derm: Skin is pink, warm & dry. Musculoskeletal: Range of motion intact in all extremities. 16:25 Adult Sepsis Screening: The patient does not have new or worsening altered mentation. ms2 Patient's respiratory rate is less than 22. Systolic blood pressure is greater than 100. Patient has a qSOFA score of 0- Negative Sepsis Screen. General: Appears in no apparent distress, was asleep. Neurological: No deficits noted. Cardiovascular: Rhythm is sinus rhythm. Respiratory: No deficits noted. GI: Abdomen is non- distended obese. Derm: Skin is pink, warm & dry. Musculoskeletal: Range of motion intact in all extremities. 17:46 General: Appears in no apparent distress, was sleeping --father here now. Behavior is ms2 cooperative. Pain: Pain currently is 2 out of 10 on a pain scale. Neurological: Level of Consciousness is awake, alert, obeys commands. Cardiovascular: Rhythm is sinus rhythm No ectopy. Respiratory: Airway is patent Respiratory effort is even, unlabored, Respiratory pattern is regular, symmetrical. GI: Abdomen is non- distended obese. Derm: Skin is pink, warm & dry. Musculoskeletal: Range of motion intact in all extremities. Vital Signs: 10:22 BP 132 / 86; Pulse 143; Resp 18; Temp 99.8(O); Pulse Ox 97% on R/A; Weight 97.52 kg; sew Height 5 ft. 6 in. (167.64 cm); Pain 10/10; 10:34 BP 127 / 86 (auto/); ms2 10:35 Pulse 140 MON; Resp 20 S; Pulse Ox 98% ; ms2 10:49 BP 144 / 79 (auto/); ead 10:50 Pulse 120 MON; Resp 20; Pulse Ox 99% on R/A; ead 11:04 BP 134 / 66 (auto/); ms2 11:05 Pulse 108 MON; Resp 22 S; Pulse Ox 98% ; ms2 11:18 BP 135 / 66 (auto/); ms2 11:19 Pulse 112 MON; Resp 20 S; Pulse Ox 97% ; ms2 11:33 BP 131 / 62 (auto/); ms2 11:34 Pulse 102 MON; Resp 20 S; Pulse Ox 98% ; ms2 11:48 BP 127 / 63 (auto/); ms2 11:49 Pulse 100 MON; Resp 20; Pulse Ox 99% ; ms2 12:03 BP 111 / 58 (auto/); ms2 12:04 Pulse 100 MON; Resp 20 S; Pulse Ox 98% ; ms2 12:18 BP 100 / 59 (auto/); ms2 12:19 Pulse 94 MON; Resp 20 S; Pulse Ox 97% ; ms2 12:33 BP 120 / 66 (auto/); ms2 12:33 Pulse 106 MON; Resp 20 S; Pulse Ox 98% ; ms2 12:48 BP 121 / 68 (auto/); ms2 12:49 Pulse 90 MON; Resp 20 S; Pulse Ox 98% ; ms2 13:18 BP 115 / 57 (auto/); ms2 13:18 Pulse 100 MON; Resp 20 S; Pulse Ox 97% ; ms2 13:33 BP 116 / 58 (auto/); ms2 13:34 Pulse 90 MON; Resp 20 S; Pulse Ox 98% ; ms2 13:48 BP 114 / 56 (auto/); ms2 13:49 Pulse 90 MON; Resp 20 S; Pulse Ox 99% ; ms2 14:03 BP 136 / 78 (auto/); ms2 14:03 Pulse 106 MON; Resp 20 S; ms2 14:18 BP 127 / 67 (auto/); ms2 14:18 Pulse 112 MON; Resp 20 S; ms2 14:54 BP 134 / 76 (auto/); ms2 14:55 Pulse 110 MON; Resp 20 S; Pulse Ox 98% ; ms2 15:03 BP 133 / 76 (auto/); ms2 15:03 Pulse 108 MON; Resp 20 S; Pulse Ox 98% ; ms2 15:18 BP 128 / 68 (auto/); ms2 15:18 Pulse 118 MON; Resp 20 S; ms2 15:33 BP 128 / 61 (auto/); ms2 15:34 Pulse 102 MON; Resp 20 S; ms2 15:48 BP 130 / 63 (auto/); ms2 15:49 Pulse 98 MON; Resp 20 S; ms2 16:03 BP 130 / 62 (auto/); ms2 16:04 Pulse 102 MON; Resp 20 S; ms2 16:18 BP 129 / 61 (auto/); ms2 16:19 Pulse 104 MON; Resp 20 S; ms2 16:33 BP 122 / 59 (auto/); ms2 16:33 Pulse 94 MON; Resp 20 S; ms2 16:49 BP 129 / 61 (auto/); ms2 16:50 Pulse 96 MON; Resp 20 S; ms2 17:04 BP 130 / 63 (auto/); ms2 17:05 Pulse 86 MON; Resp 20 S; ms2 17:19 BP 130 / 65 (auto/); ms2 17:20 Pulse 90 MON; Resp 20 S; ms2 17:49 BP 125 / 68; Pulse 112; Resp 20 S; ms2 10:22 Body Mass Index 34.70 (97.52 kg, 167.64 cm) sew Vitals: 10:22 Log In Time: June 02, 2016 at 10:12. RN notified that patient meets Red Flag sew criteria. ED Course: 10:22 Patient visited by Bina Staton. sew 10:22 Cecilio Feldman is Private Physician. sew 10:22 Patient moved to Waiting sew 10:24 Patient visited by Bina Staton. sew 10:29 Apryl Wong RN is Primary Nurse. sew 10:29 Patient moved to 4 sew 10:31 Patient visited by Saurabh Bunch, PADMAJA. mlb1 10:37 Bina Cowan MD is Attending Physician. sd1 10:37 Patient visited by Bina Cowan MD. sd1 10:37 Patient visited by Saurabh Bunch, PADMAJA. mlb1 10:44 Liver Profile Sent. ead 10:44 Lipase Sent. ead 10:44 Amylase Sent. ead 10:44 Basic Metabolic Profile Sent. ead 10:44 CBC with Diff Sent. ead 10:45 Inserted peripheral IV: 18gauge IV in right antecubital area and blood collected. ead Patient tolerated the procedure well. 10:54 Patient visited by Apryl Wong RN. ead 10:54 Triage Initiated mlb1 10:56 The patient / caregiver is instructed regarding the plan of care and ED course. Patient ead has correct armband on for positive identification. Placed in gown. Bed in low position. Call light in reach. Side rails up X 1. Adult w/ patient. surveillance monitor on. Pulse ox on. NIBP on. 11:20 The patient / caregiver is instructed regarding the plan of care and ED course. Cardiac ms2 monitor on. Pulse ox on. NIBP on. 11:20 No procedures done that require assistance. ms2 11:20 IV is intact, is free of redness or swelling. ms2 11:30 Patient visited by Katerine Rodrigues PCA. jlf 11:46 Raul Will RN is Primary Nurse. ms2 12:05 Abdomen, Flat\E\Upright,PA Chest Returned. EDMS 12:59 surveillance monitor on. Pulse ox on. NIBP on. ms2 12:59 IV is patent, is intact, is free of redness or swelling. ms2 13:06 Patient visited by Raul Will RN. ms2 13:09 The patient / caregiver is instructed regarding the plan of care and ED course. ms2 13:39 Patient visited by Raul Will RN. ms2 13:41 The patient / caregiver is instructed regarding the plan of care and ED course. Cardiac ms2 monitor on. Pulse ox on. NIBP on. 13:41 IV is intact, is free of redness or swelling. ms2 14:38 Patient visited by Raul Will RN. ms2 14:47 The patient / caregiver is instructed regarding the plan of care and ED course. Cardiac ms2 monitor on. Pulse ox on. NIBP on. 14:47 IV is patent, is intact, is free of redness or swelling. solution is infusing as ms2 ordered. 14:57 Patient visited by Raul Will RN. ms2 15:16 [facility] Payment Agreement was scanned into [employer] and attached to record. jp5 15:27 Patient visited by Katerine Rodrigues PCA. jlf 15:28 The patient / caregiver is instructed regarding the plan of care and ED course. Cardiac ms2 monitor on. Pulse ox on. NIBP on. 15:28 IV is intact, is free of redness or swelling. ms2 16:16 Patient visited by Raul Will RN. ms2 16:20 CT ABD & PELVIS: IV Contrast Only Returned. EDMS 16:25 The patient / caregiver is instructed regarding the plan of care and ED course. Cardiac ms2 monitor on. Pulse ox on. NIBP on. 16:32 IV is patent, is intact, is free of redness or swelling. solution is infusing as ms2 ordered. 17:46 Patient visited by Raul Will RN. ms2 17:47 The patient / caregiver is instructed regarding the plan of care and ED course. monitor ms2 dc'd. 17:47 Discontinued IV intact, bleeding controlled, pressure dressing applied, No ms2 redness/swelling at site. 18:22 Patient moved to [facility] 06/03 09:35 T-Sheet-- Draft Copy was scanned into [employer] and attached to record. gb :36 Trend VS was scanned into [employer] and attached to record. gb Administered Medications: 06/02 10:44 Drug: NS 0.9% 1000 ml [sodium chloride 0.9 % intravenous solution] Route: IV; Rate: ead bolus; Site: right antecubital; 10:54 Drug: Metoclopramide 10 mg [metoclopramide 5 mg/mL injection solution] Route: IV; Rate: ead 40 mg/hr; Infused Over: 15 mins; Site: right antecubital; 10:54 Drug: ketorolac 30 mg [ketorolac 30 mg/mL (1 mL) injection solution (1 mL)] Route: IVP; ead Site: right antecubital; 12:04 Drug: GI Cocktail - (Alum-Mag Hydroxide-Simeth Suspension 225 mg-200 mg-25 mg/5 mL 30 ms2 ml, Lidocaine Liquid 2 % 10 ml, Hyoscyamine Liquid 10 ml) Route: PO; 13:39 Drug: Sucralfate 1 grams [sucralfate 1 gram tablet (1 tabs)] Route: PO; ms2 14:55 Drug: Promethazine 25 mg [promethazine 25 mg/mL injection solution (1 mL)] Route: IVP; ms2 Site: right antecubital; 16:25 Drug: Ondansetron 4 mg Route: IVP; Site: right antecubital; ms2 16:25 Drug: NS 0.9% 1000 ml [sodium chloride 0.9 % intravenous solution] Route: IV; Rate: ms2 bolus; Site: right antecubital; 16:26 Drug: pantoprazole 40 mg [pantoprazole 40 mg intravenous solution] Route: IV; Rate: ms2 bolus; Site: right antecubital; Attachments: 09:36 Trend VS gb Intake: 06/02 13:10 PO: 120.00ml; IV: 1000.00ml (NS); Total: 1120.00ml. ms2 17:49 PO: 100.00ml; IV: 1000.00ml (NS); Total: 2220.00ml. ms2 13:10 voided x1 and diarrhea x2 per pt ms2 Order Results: Lab Order: Amylase; SPEC'M 06/02/16 10:43 Test: AMYLASE; Value: 43; Range: 25-115; Units: U/L; Status: F Lab Order: Basic Metabolic Profile; SPEC'M 06/02/16 10:43 Test: GLUCOSE, FASTING; Value: 124; Range: 70-105; Abnormal: Above high normal; Units: MG/DL; Status: F Test: BLOOD UREA NITROGEN; Value: 19; Range: 7-18; Abnormal: Above high normal; Units: MG/DL; Status: F Test: CREATININE FOR GFR; Value: 1.04; Range: 0.55-1.02; Abnormal: Above high normal; Units: MG/DL; Status: F Test: GLOMERULAR FILTRATION RATE; Value: > 60.0; Range: >60; Status: F Test: SODIUM LEVEL; Value: 143; Range: 136-145; Units: MEQ/L; Status: F Test: POTASSIUM SERUM; Value: 3.9; Range: 3.5-5.1; Units: MEQ/L; Status: F Test: CHLORIDE LEVEL; Value: 109; Range: 98-107; Abnormal: Above high normal; Units: MEQ/L; Status: F Test: CARBON DIOXIDE LEVEL; Value: 22; Range: 21-32; Units: MEQ/L; Status: F Test: ANION GAP; Value: 12; Range: 8-16; Units: MEQ/L; Status: F Test: CALCIUM LEVEL; Value: 8.9; Range: 8.5-10.1; Units: MG/DL; Status: F Test Note: ; Units are mL/min/1.73 m2 Chronic Kidney Disease Staging per NKF: Stage I & II GFR >=60 Normal to Mildly Decreased Stage III GFR 30-59 Moderately Decreased Stage IV GFR 15-29 Severely Decreased Stage V GFR <15 Very Little GFR Left ESRD GFR <15 on [facility] Lab Order: CBC with Diff; SPEC'M 06/02/16 10:43 Test: WHITE BLOOD COUNT; Value: 15.8; Range: 4.0-10.0; Abnormal: Above high normal; Units: K/mm3; Status: F Test: RED BLOOD COUNT; Value: 5.23; Range: 4.00-5.40; Units: M/mm3; Status: F Test: HEMOGLOBIN; Value: 16.1; Range: 12.0-16.0; Abnormal: Above high normal; Units: g/dl; Status: F Test: HEMATOCRIT; Value: 46.2; Range: 36.0-47.0; Units: %; Status: F Test: MEAN CORPUSCULAR VOLUME; Value: 88.3; Range: 80.0-96.0; Units: fl; Status: F Test: MEAN CORPUSCULAR HEMOGLOBIN; Value: 30.7; Range: 27.0-33.0; Units: pg; Status: F Test: MEAN CORPUSCULAR HGB CONC; Value: 34.8; Range: 32.0-36.5; Units: g/dl; Status: F Test: RED CELL DISTRIBUTION WIDTH; Value: 11.8; Range: 11.5-14.5; Units: %; Status: F Test: PLATELET COUNT, AUTOMATED; Value: 409; Range: 150-450; Units: k/mm3; Status: F Test: NEUTROPHILS %; Value: 90.9; Range: 36.0-66.0; Abnormal: Above high normal; Units: %; Status: F Test: LYMPH %; Value: 4.0; Range: 24.0-44.0; Abnormal: Below low normal; Units: %; Status: F Test: MONO %; Value: 3.0; Range: 0.0-5.0; Units: %; Status: F Test: EOS %; Value: 1.4; Range: 0.0-3.0; Units: %; Status: F Test: BASO %; Value: 0.2; Range: 0.0-1.0; Units: %; Status: F Test: LARGE UNSTAINED CELL %; Value: 0.4; Range: 0.0-4.0; Units: %; Status: F Test: NEUTROPHILS #; Value: 14.4; Range: 1.8-7.7; Abnormal: Above high normal; Units: K/mm3; Status: F Test: LYMPH #; Value: 0.6; Range: 1.5-6.5; Abnormal: Below low normal; Units: K/mm3; Status: F Test: MONO #; Value: 0.5; Range: 0.0-0.8; Units: K/mm3; Status: F Test: EOS #; Value: 0.2; Range: 0.0-0.50; Units: K/mm3; Status: F Test: BASO #; Value: 0.0; Range: 0.0-0.2; Units: K/mm3; Status: F Test: LARGE UNSTAINED CELL #; Value: 0.1; Range: 0.0-0.4; Units: K/mm3; Status: F Lab Order: Lipase; 06/02/16 10:43 Test: LIPASE; Value: 106; Range: 73-393; Units: U/L; Status: F Lab Order: Liver Profile; 06/02/16 10:43 Test: AST/SGOT; Value: 18; Range: 15-37; Units: U/L; Status: F Test: ALT/SGPT; Value: 29; Range: 12-78; Units: U/L; Status: F Test: ALKALINE PHOSPHATASE; Value: 121; Range: 45-117; Abnormal: Above high normal; Units: U/L; Status: F Test: BILIRUBIN,TOTAL; Value: 0.8; Range: 0.2-1.0; Units: MG/DL; Status: F Test: BILIRUBIN,DIRECT; Value: 0.2; Range: 0.0-0.2; Units: MG/DL; Status: F Test: TOTAL PROTEIN; Value: 8.0; Range: 6.4-8.2; Units: GM/DL; Status: F Test: ALBUMIN; Value: 4.7; Range: 3.2-5.2; Units: GM/DL; Status: F Test: ALBUMIN/GLOBULIN RATIO; Value: 1.42; Range: 1.00-1.93; Status: F Lab Order: HCG,Serum Qualitative; 06/02/16 10:43 Test: HCG, SERUM QUALITATIVE; Value: NEGATIVE; Range: NEGATIVE; Status: F Lab Order: Thyroid Profile; 06/02/16 10:43 Test: T UPTAKE; Value: 33; Range: 30-39; Units: %; Status: F Test: THYROXINE (T4); Value: 11.3; Range: 4.5-12.0; Units: UG/DL; Status: F Test: FREE THYROXINE INDEX; Value: 3.7; Range: 1.3-4.8; Units: %; Status: F Test: THYROID STIMULATING HORMONE; Value: 0.337; Range: 0.358-3.740; Abnormal: Below low normal; Units: uIU/ML; Status: F Radiology Order: Abdomen, Flat\E\Upright,PA Chest Test: Abdomen, Flat\E\Upright,PA Chest REASON FOR EXAMINATION: Abdomen Pain; ABDOMEN FLAT UPRIGHT, PA CHEST, THREE VIEWS:; ; HISTORY: Abdominal pain.; ; COMPARISON: 03/06/2012; ; Air is present in small and large intestine. Several air fluid levels are; present. There are no dilated loops of intestine. There is no pneumoperitoneum.; Surgical clips are present in the right upper quadrant. There is spina bifida; occulta of S1. 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 A single tubal; ligation clamp is visible on the right side of the pelvis. This is unchanged; from the comparison study.; ; The lung bases are clear. There is no evidence of pleural effusion or upper; abdominal ascites.; ; The liver and the spleen are normal in size, homogeneous in texture. There are; clips in the gallbladder fossa. No adrenal lesion is seen on either side.; Pancreas is unremarkable. Kidneys enhance symmetrically and are morphologically; intact. Normal caliber aorta is seen. No retroperitoneal mass or adenopathy is; seen. There is mild mural thickening in multiple jejunal and proximal ileal; loops in the abdomen. No evidence of obstruction. No mass or adenopathy seen.; There is fluid in the proximal and distal colon without distension. Mild mural; thickening is seen in the colon as well. Nonspecific enterocolitis pattern. A; normal appendix is seen. No evidence of free air.; ; Impression:; ; Nonspecific enterocolitis pattern in the small and large intestine with mild; mural thickening and fluid content. Normal appendix. No other abnormality.; Post cholecystectomy. A single tubal ligation clamp is seen on the right side.; ; ; Signed by; Papi Levy MD 06/02/2016 04:20 P; Outcome: 16:59 Discharge ordered by Provider. sd1 17:47 Discharge Assessment: patient administered narcotics - no. The following High Risk ms2 Discharge criteria are identified: None. Discharged to home ambulatory, with parent. Condition: stable. Discharge instructions given to patient, Instructed on discharge instructions, follow up and referral plans. medication usage, Demonstrated understanding of instructions, medications, Pt was receptive of discharge instructions/ teaching. CT Study completed. Property sent home with patient. 18:38 Patient left the ED. ms2 Signatures: Dispatcher [employer] EDMS Bina Cowan MD MD sd1 Cathy Howell, RN RN kcs Raul Will RN RN ms2 Yessenia Galo, Reg Reg Saurabh Wiggins RN RN mlBina Sanchez Jordain, YESIKA GUM WORKER Apryl Lomeli,RN RN Luis Herron jp5 Corrections: (The following items were deleted from the chart) 10:37 10:35 Home Meds: none; mlb1 mlb1 12:03 11:20 No procedures done that require assistance ms2 ms2 12:03 11:20 No IV's were initiated during this patient's visit ms2 ms2 Chart Complete MTDD
--- NOTE | 2016-06-04 19:39 | EDDOCDS ---
Physician Documentation [facility] Name: Christiane Martinez Age: 26 yrs Sex: Female : 1990 Arrival Date: 06/02/2016 Time: 10:20 Bed H4 Private MD: Cecilio Feldman MD Disposition: 06/02/16 16:59 Discharged to Home/Self Care. Impression: Vomiting, Diarrhea, unspecified. - Condition is Stable. - Discharge Instructions: Diarrhea, Clear Liquid Diet, Nausea and Vomiting, Diarrhea, [id number]. - Prescriptions for ZOFRAN ODT 4 mg - dissolve 1 tablet by ORAL route 4 times per day As needed do not chew, do not swallow whole; 10 tablet. - Medication Reconciliation, Local Pharmacy Hours, Work Release Form - 2 day form. - Follow up: Emergency Department; When: Tomorrow; Reason: Recheck today's complaints. - Problem is new. - Symptoms have improved. Historical: - Allergies: Morphine; Dilaudid (increases abdomenial pain ); - Home Meds: 1. Chantix 1 mg Oral tab 1 tab 2 times per day - PMHx: none; - PSHx: Laparoscopy; Bunion Surgery; Salpingectomy- Left; Tubal ligation; X 2; lysis of adhesions; Cholecystectomy; - Social history: Smoking status: Patient states former smoker of tobacco. No barriers to communication noted, The patient speaks fluent Croatian, Speaks appropriately for age. - Family history: Not pertinent. - : The pt / caregiver states he / she is not on anticoagulants. Home medication list is obtained from the patient. - Exposure Risk Screening:: None identified. 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 6 in. (167.64 cm); Pain 10/10; 10:34 BP 127 / 86 (auto/); ms2 10:35 Pulse 140 MON; Resp 20 S; Pulse Ox 98% ; ms2 10:49 BP 144 / 79 (auto/); ead 10:50 Pulse 120 MON; Resp 20; Pulse Ox 99% on R/A; ead 11:04 BP 134 / 66 (auto/); ms2 11:05 Pulse 108 MON; Resp 22 S; Pulse Ox 98% ; ms2 11:18 BP 135 / 66 (auto/); ms2 11:19 Pulse 112 MON; Resp 20 S; Pulse Ox 97% ; ms2 11:33 BP 131 / 62 (auto/); ms2 11:34 Pulse 102 MON; Resp 20 S; Pulse Ox 98% ; ms2 11:48 BP 127 / 63 (auto/); ms2 11:49 Pulse 100 MON; Resp 20; Pulse Ox 99% ; ms2 12:03 BP 111 / 58 (auto/); ms2 12:04 Pulse 100 MON; Resp 20 S; Pulse Ox 98% ; ms2 12:18 BP 100 / 59 (auto/); ms2 12:19 Pulse 94 MON; Resp 20 S; Pulse Ox 97% ; ms2 12:33 BP 120 / 66 (auto/); ms2 12:33 Pulse 106 MON; Resp 20 S; Pulse Ox 98% ; ms2 12:48 BP 121 / 68 (auto/); ms2 12:49 Pulse 90 MON; Resp 20 S; Pulse Ox 98% ; ms2 13:18 BP 115 / 57 (auto/); ms2 13:18 Pulse 100 MON; Resp 20 S; Pulse Ox 97% ; ms2 13:33 BP 116 / 58 (auto/); ms2 13:34 Pulse 90 MON; Resp 20 S; Pulse Ox 98% ; ms2 13:48 BP 114 / 56 (auto/); ms2 13:49 Pulse 90 MON; Resp 20 S; Pulse Ox 99% ; ms2 14:03 BP 136 / 78 (auto/); ms2 14:03 Pulse 106 MON; Resp 20 S; ms2 14:18 BP 127 / 67 (auto/); ms2 14:18 Pulse 112 MON; Resp 20 S; ms2 14:54 BP 134 / 76 (auto/); ms2 14:55 Pulse 110 MON; Resp 20 S; Pulse Ox 98% ; ms2 15:03 BP 133 / 76 (auto/); ms2 15:03 Pulse 108 MON; Resp 20 S; Pulse Ox 98% ; ms2 15:18 BP 128 / 68 (auto/); ms2 15:18 Pulse 118 MON; Resp 20 S; ms2 15:33 BP 128 / 61 (auto/); ms2 15:34 Pulse 102 MON; Resp 20 S; ms2 15:48 BP 130 / 63 (auto/); ms2 15:49 Pulse 98 MON; Resp 20 S; ms2 16:03 BP 130 / 62 (auto/); ms2 16:04 Pulse 102 MON; Resp 20 S; ms2 16:18 BP 129 / 61 (auto/); ms2 16:19 Pulse 104 MON; Resp 20 S; ms2 16:33 BP 122 / 59 (auto/); ms2 16:33 Pulse 94 MON; Resp 20 S; ms2 16:49 BP 129 / 61 (auto/); ms2 16:50 Pulse 96 MON; Resp 20 S; ms2 17:04 BP 130 / 63 (auto/); ms2 17:05 Pulse 86 MON; Resp 20 S; ms2 17:19 BP 130 / 65 (auto/); ms2 17:20 Pulse 90 MON; Resp 20 S; ms2 17:49 BP 125 / 68; Pulse 112; Resp 20 S; ms2 10:22 Body Mass Index 34.70 (97.52 kg, 167.64 cm) sew MDM: 10:43 Undress patient appropriately for examination ordered. sd1 10:43 NS 0.9% 1000 ml IV at bolus once ordered. sd1 10:43 Metoclopramide 10 mg IV at 40 mg/hr once over 15 mins ordered. sd1 10:43 ketorolac 30 mg IVP once ordered. sd1 10:44 Amylase Ordered. EDMS 10:44 Basic Metabolic Profile Ordered. EDMS 10:44 CBC with Diff Ordered. EDMS 10:44 Lipase Ordered. EDMS 10:44 Liver Profile Ordered. EDMS 10:44 HCG,Serum Qualitative Ordered. EDMS 10:44 Abdomen, Flat\E\Upright,PA Chest Ordered. EDMS 10:44 NOTHING BY MOUTH+DIET ordered. EDMS 10:44 Thyroid Profile Ordered. EDMS 12:05 Basic Metabolic Profile Reviewed. sd1 12:05 CBC with Diff Reviewed. sd1 12:05 Liver Profile Reviewed. sd1 12:05 Thyroid Profile Reviewed. sd1 12:05 Amylase Reviewed. sd1 12:05 Lipase Reviewed. sd1 12:31 Abdomen, Flat\E\Upright,PA Chest Reviewed. sd1 12:33 GI Cocktail - (Alum-Mag Hydroxide-Simeth 30 ml, Lidocaine 10 ml, Hyoscyamine 10 ml) PO sd1 once; Pre-mixed 50mL unit dose ordered. 13:19 Sucralfate 1 grams PO once ordered. sd1 13:32 CLEAR LIQUID+DIET ordered. EDMS 14:18 Basic Metabolic Profile Reviewed. sd1 14:18 Liver Profile Reviewed. sd1 14:18 Amylase Reviewed. sd1 14:18 Lipase Reviewed. sd1 14:18 HCG,Serum Qualitative Reviewed. sd1 14:19 Promethazine 25 mg IVP once; dilute and administer 30-60 minutes ordered. sd1 14:29 CT ABD & PELVIS: IV Contrast Only Ordered. EDMS 15:13 pantoprazole 40 mg IV at bolus once ordered. sd1 15:13 Ondansetron 4 mg IVP once ordered. sd1 15:16 [facility] [place] Payment Agreement was scanned into [employer] and attached to record. jp5 15:16 Financial registration complete. jp5 15:40 NS 0.9% 1000 ml IV at bolus once ordered. sd1 06/03 09:35 T-Sheet-- Draft Copy was scanned into [employer] and attached to record. gb 09:36 Trend VS was scanned into [employer] and attached to record. gb Administered Medications: 06/02 10:44 Drug: NS 0.9% 1000 ml [sodium chloride 0.9 % intravenous solution] Route: IV; Rate: ead bolus; Site: right antecubital; 10:54 Drug: Metoclopramide 10 mg [metoclopramide 5 mg/mL injection solution] Route: IV; Rate: ead 40 mg/hr; Infused Over: 15 mins; Site: right antecubital; 10:54 Drug: ketorolac 30 mg [ketorolac 30 mg/mL (1 mL) injection solution (1 mL)] Route: IVP; ead Site: right antecubital; 12:04 Drug: GI Cocktail - (Alum-Mag Hydroxide-Simeth Suspension 225 mg-200 mg-25 mg/5 mL 30 ms2 ml, Lidocaine Liquid 2 % 10 ml, Hyoscyamine Liquid 10 ml) Route: PO; 13:39 Drug: Sucralfate 1 grams [sucralfate 1 gram tablet (1 tabs)] Route: PO; ms2 14:55 Drug: Promethazine 25 mg [promethazine 25 mg/mL injection solution (1 mL)] Route: IVP; ms2 Site: right antecubital; 16:25 Drug: Ondansetron 4 mg Route: IVP; Site: right antecubital; ms2 16:25 Drug: NS 0.9% 1000 ml [sodium chloride 0.9 % intravenous solution] Route: IV; Rate: ms2 bolus; Site: right antecubital; 16:26 Drug: pantoprazole 40 mg [pantoprazole 40 mg intravenous solution] Route: IV; Rate: ms2 bolus; Site: right antecubital; Signatures: Dispatcher [employer] Bina Booker MD MD sd1 Raul WillRN RN ms2 Yessenia Galo, Monty Reg gb Saurabh Bunch RN RN mlb1 Luis Del Cid jp5 Apryl Wong RN The chart was reviewed and I authenticate all verbal orders and agree with the evaluation and treatment provided.Corrections: (The following items were deleted from the chart) 10:37 10:35 Home Meds: none; martinez henriquez Attachments: 15:16 [facility] Payment Agreement jp5 06/03 09:35 T-Sheet-- Draft Copy gb Chart Complete MTDD
--- NOTE | 2016-06-04 19:39 | EDDOCDS ---
Physician Documentation [facility] Name: Christiane Martinez Age: 26 yrs Sex: Female : 1990 Arrival Date: 06/02/2016 Time: 10:20 Bed H4 Private MD: Cecilio Feldman MD Disposition: 06/02/16 16:59 Discharged to Home/Self Care. Impression: Vomiting, Diarrhea, unspecified. - Condition is Stable. - Discharge Instructions: Diarrhea, Clear Liquid Diet, Nausea and Vomiting, Diarrhea, [id number]. - Prescriptions for ZOFRAN ODT 4 mg - dissolve 1 tablet by ORAL route 4 times per day As needed do not chew, do not swallow whole; 10 tablet. - Medication Reconciliation, Local Pharmacy Hours, Work Release Form - 2 day form. - Follow up: Emergency Department; When: Tomorrow; Reason: Recheck today's complaints. - Problem is new. - Symptoms have improved. Historical: - Allergies: Morphine; Dilaudid (increases abdomenial pain ); - Home Meds: 1. Chantix 1 mg Oral tab 1 tab 2 times per day - PMHx: none; - PSHx: Laparoscopy; Bunion Surgery; Salpingectomy- Left; Tubal ligation; X 2; lysis of adhesions; Cholecystectomy; - Social history: Smoking status: Patient states former smoker of tobacco. No barriers to communication noted, The patient speaks fluent Indonesian, Speaks appropriately for age. - Family history: Not pertinent. - : The pt / caregiver states he / she is not on anticoagulants. Home medication list is obtained from the patient. - Exposure Risk Screening:: None identified. 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 6 in. (167.64 cm); Pain 10/10; 10:34 BP 127 / 86 (auto/); ms2 10:35 Pulse 140 MON; Resp 20 S; Pulse Ox 98% ; ms2 10:49 BP 144 / 79 (auto/); ead 10:50 Pulse 120 MON; Resp 20; Pulse Ox 99% on R/A; ead 11:04 BP 134 / 66 (auto/); ms2 11:05 Pulse 108 MON; Resp 22 S; Pulse Ox 98% ; ms2 11:18 BP 135 / 66 (auto/); ms2 11:19 Pulse 112 MON; Resp 20 S; Pulse Ox 97% ; ms2 11:33 BP 131 / 62 (auto/); ms2 11:34 Pulse 102 MON; Resp 20 S; Pulse Ox 98% ; ms2 11:48 BP 127 / 63 (auto/); ms2 11:49 Pulse 100 MON; Resp 20; Pulse Ox 99% ; ms2 12:03 BP 111 / 58 (auto/); ms2 12:04 Pulse 100 MON; Resp 20 S; Pulse Ox 98% ; ms2 12:18 BP 100 / 59 (auto/); ms2 12:19 Pulse 94 MON; Resp 20 S; Pulse Ox 97% ; ms2 12:33 BP 120 / 66 (auto/); ms2 12:33 Pulse 106 MON; Resp 20 S; Pulse Ox 98% ; ms2 12:48 BP 121 / 68 (auto/); ms2 12:49 Pulse 90 MON; Resp 20 S; Pulse Ox 98% ; ms2 13:18 BP 115 / 57 (auto/); ms2 13:18 Pulse 100 MON; Resp 20 S; Pulse Ox 97% ; ms2 13:33 BP 116 / 58 (auto/); ms2 13:34 Pulse 90 MON; Resp 20 S; Pulse Ox 98% ; ms2 13:48 BP 114 / 56 (auto/); ms2 13:49 Pulse 90 MON; Resp 20 S; Pulse Ox 99% ; ms2 14:03 BP 136 / 78 (auto/); ms2 14:03 Pulse 106 MON; Resp 20 S; ms2 14:18 BP 127 / 67 (auto/); ms2 14:18 Pulse 112 MON; Resp 20 S; ms2 14:54 BP 134 / 76 (auto/); ms2 14:55 Pulse 110 MON; Resp 20 S; Pulse Ox 98% ; ms2 15:03 BP 133 / 76 (auto/); ms2 15:03 Pulse 108 MON; Resp 20 S; Pulse Ox 98% ; ms2 15:18 BP 128 / 68 (auto/); ms2 15:18 Pulse 118 MON; Resp 20 S; ms2 15:33 BP 128 / 61 (auto/); ms2 15:34 Pulse 102 MON; Resp 20 S; ms2 15:48 BP 130 / 63 (auto/); ms2 15:49 Pulse 98 MON; Resp 20 S; ms2 16:03 BP 130 / 62 (auto/); ms2 16:04 Pulse 102 MON; Resp 20 S; ms2 16:18 BP 129 / 61 (auto/); ms2 16:19 Pulse 104 MON; Resp 20 S; ms2 16:33 BP 122 / 59 (auto/); ms2 16:33 Pulse 94 MON; Resp 20 S; ms2 16:49 BP 129 / 61 (auto/); ms2 16:50 Pulse 96 MON; Resp 20 S; ms2 17:04 BP 130 / 63 (auto/); ms2 17:05 Pulse 86 MON; Resp 20 S; ms2 17:19 BP 130 / 65 (auto/); ms2 17:20 Pulse 90 MON; Resp 20 S; ms2 17:49 BP 125 / 68; Pulse 112; Resp 20 S; ms2 10:22 Body Mass Index 34.70 (97.52 kg, 167.64 cm) sew MDM: 10:43 Undress patient appropriately for examination ordered. sd1 10:43 NS 0.9% 1000 ml IV at bolus once ordered. sd1 10:43 Metoclopramide 10 mg IV at 40 mg/hr once over 15 mins ordered. sd1 10:43 ketorolac 30 mg IVP once ordered. sd1 10:44 Amylase Ordered. EDMS 10:44 Basic Metabolic Profile Ordered. EDMS 10:44 CBC with Diff Ordered. EDMS 10:44 Lipase Ordered. EDMS 10:44 Liver Profile Ordered. EDMS 10:44 HCG,Serum Qualitative Ordered. EDMS 10:44 Abdomen, Flat\E\Upright,PA Chest Ordered. EDMS 10:44 NOTHING BY MOUTH+DIET ordered. EDMS 10:44 Thyroid Profile Ordered. EDMS 12:05 Basic Metabolic Profile Reviewed. sd1 12:05 CBC with Diff Reviewed. sd1 12:05 Liver Profile Reviewed. sd1 12:05 Thyroid Profile Reviewed. sd1 12:05 Amylase Reviewed. sd1 12:05 Lipase Reviewed. sd1 12:31 Abdomen, Flat\E\Upright,PA Chest Reviewed. sd1 12:33 GI Cocktail - (Alum-Mag Hydroxide-Simeth 30 ml, Lidocaine 10 ml, Hyoscyamine 10 ml) PO sd1 once; Pre-mixed 50mL unit dose ordered. 13:19 Sucralfate 1 grams PO once ordered. sd1 13:32 CLEAR LIQUID+DIET ordered. EDMS 14:18 Basic Metabolic Profile Reviewed. sd1 14:18 Liver Profile Reviewed. sd1 14:18 Amylase Reviewed. sd1 14:18 Lipase Reviewed. sd1 14:18 HCG,Serum Qualitative Reviewed. sd1 14:19 Promethazine 25 mg IVP once; dilute and administer 30-60 minutes ordered. sd1 14:29 CT ABD & PELVIS: IV Contrast Only Ordered. EDMS 15:13 pantoprazole 40 mg IV at bolus once ordered. sd1 15:13 Ondansetron 4 mg IVP once ordered. sd1 15:16 [facility] [place] Payment Agreement was scanned into [employer] and attached to record. jp5 15:16 Financial registration complete. jp5 15:40 NS 0.9% 1000 ml IV at bolus once ordered. sd1 06/03 09:35 T-Sheet-- Draft Copy was scanned into [employer] and attached to record. gb 09:36 Trend VS was scanned into [employer] and attached to record. gb Administered Medications: 06/02 10:44 Drug: NS 0.9% 1000 ml [sodium chloride 0.9 % intravenous solution] Route: IV; Rate: ead bolus; Site: right antecubital; 10:54 Drug: Metoclopramide 10 mg [metoclopramide 5 mg/mL injection solution] Route: IV; Rate: ead 40 mg/hr; Infused Over: 15 mins; Site: right antecubital; 10:54 Drug: ketorolac 30 mg [ketorolac 30 mg/mL (1 mL) injection solution (1 mL)] Route: IVP; ead Site: right antecubital; 12:04 Drug: GI Cocktail - (Alum-Mag Hydroxide-Simeth Suspension 225 mg-200 mg-25 mg/5 mL 30 ms2 ml, Lidocaine Liquid 2 % 10 ml, Hyoscyamine Liquid 10 ml) Route: PO; 13:39 Drug: Sucralfate 1 grams [sucralfate 1 gram tablet (1 tabs)] Route: PO; ms2 14:55 Drug: Promethazine 25 mg [promethazine 25 mg/mL injection solution (1 mL)] Route: IVP; ms2 Site: right antecubital; 16:25 Drug: Ondansetron 4 mg Route: IVP; Site: right antecubital; ms2 16:25 Drug: NS 0.9% 1000 ml [sodium chloride 0.9 % intravenous solution] Route: IV; Rate: ms2 bolus; Site: right antecubital; 16:26 Drug: pantoprazole 40 mg [pantoprazole 40 mg intravenous solution] Route: IV; Rate: ms2 bolus; Site: right antecubital; Signatures: Dispatcher [employer] Bina Booker MD MD sd1 Raul WillRN RN ms2 Yessenia Galo, Monty Reg gb Saurabh Bunch RN RN mlb1 Luis Del Cid jp5 Apryl Wong RN The chart was reviewed and I authenticate all verbal orders and agree with the evaluation and treatment provided.Corrections: (The following items were deleted from the chart) 10:37 10:35 Home Meds: none; martinez henriquez Attachments: 15:16 [facility] Payment Agreement jp5 06/03 09:35 T-Sheet-- Draft Copy gb Chart Complete MTDD
== END 2016-06-02 18:38 | disposition home or self-care (01) ==
LOC: M ED 10:20
DX: K52.9 Noninfective gastroenteritis and colitis, unspecified (principal); Z79.899 Other long term (current) drug therapy; Z88.5 Allergy status to narcotic agent; Z87.891 Personal history of nicotine dependence
CPT/HCPCS: 36415; 74022; 74177; 80048; 80076; 82150; 83690; 84436; 84443; 84479; 84703; 85025; 96374; 96375; 99285; C9113; J1885; J2405; J2765; Q9967

== ENCOUNTER 2016-08-15 14:22 | Emergency (ER) | payer BC ==
[~2016-08-15] VITALS: Ht 167.6 cm; Wt 101.2 kg
[2016-08-15] MEDS ORDERED: KETOROLAC 30 MG/ML VIAL (J1885) IV ONE (15:30)
[2016-08-15 16:01] LABS: BASO % 0.6 % (0.0-1.0); EOS # 0.1 K/mm3 (0.0-0.50); EOS % 1.3 % (0.0-3.0); LARGE UNSTAINED CELL # 0.1 K/mm3 (0.0-0.4); LARGE UNSTAINED CELL % 1.6 % (0.0-4.0); LYMPH # 2.2 K/mm3 (1.5-6.5); LYMPH % 27.2 % (24.0-44.0); MEAN CORPUSCULAR HEMOGLOBIN 30.4 pg (27.0-33.0); MEAN CORPUSCULAR HGB CONC 33.6 g/dl (32.0-36.5); MEAN CORPUSCULAR VOLUME 90.3 fl (80.0-96.0); MONO # 0.3 K/mm3 (0.0-0.8); NEUTROPHILS # 4.9 K/mm3 (1.8-7.7); NEUTROPHILS % 65.2 % (36.0-66.0); PLATELET COUNT, AUTOMATED 350 k/mm3 (150-450); RED CELL DISTRIBUTION WIDTH 11.9 % (11.5-14.5); WHITE BLOOD COUNT 7.4 K/mm3 (4.0-10.0)
[2016-08-15] MEDS ORDERED: GASTROGRAFIN SOLUTION 30ML (Q9963) PO ONE ×2 (16:15→16:45)
[2016-08-15 16:47] LABS: ALBUMIN 4.1 GM/DL (3.2-5.2); ALBUMIN/GLOBULIN RATIO 1.46 (1.00-1.93); ALKALINE PHOSPHATASE 89 U/L (45-117); ALT/SGPT 36 U/L (12-78); AMYLASE 38 U/L (25-115); ANION GAP 7 MEQ/L (8-16); AST/SGOT 20 U/L (15-37); BILIRUBIN,DIRECT 0.1 MG/DL (0.0-0.2); BILIRUBIN,TOTAL 0.4 MG/DL (0.2-1.0); BLOOD UREA NITROGEN 19 MG/DL (7-18); CALCIUM LEVEL 8.5 MG/DL (8.5-10.1); CARBON DIOXIDE LEVEL 26 MEQ/L (21-32); CHLORIDE LEVEL 107 MEQ/L (98-107); CREATININE FOR GFR 0.79 MG/DL (0.55-1.02); GLOMERULAR FILTRATION RATE > 60.0 (>60); GLUCOSE, FASTING 92 MG/DL (70-105); POTASSIUM SERUM 3.9 MEQ/L (3.5-5.1); SODIUM LEVEL 140 MEQ/L (136-145); TOTAL PROTEIN 6.9 GM/DL (6.4-8.2)
[2016-08-15] MEDS ORDERED: ISOVUE-370 76% 100ML VIAL (Q9967) As Ordered ONE (17:45)
[2016-08-15 18:58] VITALS: BP 128/81
--- NOTE | 2016-08-15 19:21 | REP ---
CT ABDOMEN AND PELVIS: HISTORY: Right upper quadrant pain, status-post cholecystectomy. COMPARISON: 06/02/2016 CONTRAST UTILIZED: 100 mL [id number]. The lung bases are clear. The liver and spleen are unchanged and again seem to be within normal limits. Surgical clips again seen in the gallbladder fossa. The pancreas, adrenal glands, and kidneys are unchanged and again seem to be within normal limits. The abdominal aorta and paraaortic regions unchanged and within normal limits. The bowel loops and their mesenteries are now seen to be within normal limits. No free fluid or free air is seen in the abdomen. There is no intraabdominal mass or adenopathy. CT PELVIS: The bowel loops and their mesenteries are within normal limits. There is no mass or adenopathy. There is no free fluid or free air. Bone window technique throughout the examination shows the osseous structures to be stable and intact. IMPRESSION: CT findings are within normal limits. Signed by Chandana Gaspar DO 08/15/2016 07:57 P
== END 2016-08-15 19:04 | disposition home or self-care (01) ==
LOC: M ED 15:45
DX: R10.11 Right upper quadrant pain (principal); F17.200 Nicotine dependence, unspecified, uncomplicated; Z90.49 Acquired absence of other specified parts of digestive tract; Z90.79 Acquired absence of other genital organ(s); Z88.1 Allergy status to other antibiotic agents; Z88.5 Allergy status to narcotic agent
CPT/HCPCS: 36415; 74177; 80048; 80076; 81025; 82150; 83690; 85025; 96372; 99283; J1885; Q9963; Q9967

== ENCOUNTER → 2016-08-15 | Outpatient (CLI) | payer BC ==
--- NOTE | 2016-08-15 13:40 | REP ---
RIGHT UPPER QUADRANT ULTRASOUND: Real-time sonographic evaluation of the right upper quadrant performed. Patient has had a prior cholecystectomy. There is no intrahepatic or extrahepatic biliary dilatation, common bile duct measuring 3 mm in diameter. Liver and pancreas demonstrate homogenous echotexture with no gross mass. Pancreas is not optimally seen due to overlying bowel gas. Right kidney demonstrates no hydronephrosis with normal size at 12.7 cm in length. There is no free fluid. IMPRESSION: Status post cholecystectomy. Otherwise essentially negative right upper quadrant ultrasound. Signed by Tommy Grey MD 08/15/2016 03:55 P
== END ==
LOC: M LRY 12:43
PROVIDERS: ATTEND Nurse Practitioner Family
DX: R10.9 Unspecified abdominal pain (principal); Z90.49 Acquired absence of other specified parts of digestive tract

== ENCOUNTER → 2016-09-20 | Outpatient (CLI) | payer BC ==
--- NOTE | 2016-09-20 15:29 | REP ---
RIGHT FOOT SERIES: Four views. HISTORY: Right foot pain injury in a fall. Comparison study January 03, 2008. FINDINGS: The patient is status post distal 1st and 5th metatarsal osteotomies with pinning. Bunion repair. No fracture is seen. No malalignment noted. Bones joints and soft tissues are otherwise unremarkable. IMPRESSION: Status post bunion repair distal 1st and distal 5th metatarsals. No acute bony abnormality. Signed by Papi Levy MD 09/20/2016 04:40 P
== END ==
LOC: M LRY 12:36
PROVIDERS: ATTEND Physician Assistant
DX: M79.671 Pain in right foot (principal)

== ENCOUNTER 2016-11-03 09:54 | Day surgery (SDC) | payer BC ==
[~2016-11-03] VITALS: Ht 167.6 cm; Wt 97.6 kg
[2016-11-03] MEDS ORDERED: LR 1,000 ML IV SCH ×2 (10:15→15:30)
[2016-11-03] MEDS ORDERED: METHYLENE BLUE 0.5% (5MG/ML) 10 ML AMP (PROVAYBLUE)(Q9968 PER 1MG) As Ordered ONE (10:23)
[2016-11-03 10:46] LABS: MEAN CORPUSCULAR HEMOGLOBIN 31.8 pg (27.0-33.0); MEAN CORPUSCULAR HGB CONC 34.9 g/dl (32.0-36.5); MEAN CORPUSCULAR VOLUME 91.2 fl (80.0-96.0); RED CELL DISTRIBUTION WIDTH 11.9 % (11.5-14.5); WHITE BLOOD COUNT 6.6 K/mm3 (4.0-10.0)
[2016-11-03] MEDS ORDERED: NEOSTIGMINE 1MG/ML 5 ML SYRINGE (J2710) As Ordered ONE (12:42)
[2016-11-03] MEDS ORDERED: KETOROLAC 60 MG/2 ML VIAL (J1885) As Ordered ONE (12:42)
[2016-11-03] MEDS ORDERED: ROCURONIUM BROMIDE 50 MG/5 ML VIAL As Ordered ONE ×2 (12:42→13:44)
[2016-11-03] MEDS ORDERED: MIDAZOLAM INJ 2 MG/2 ML VIAL (J2250) As Ordered ONE ×2 (12:42→15:50)
[2016-11-03] MEDS ORDERED: dexameTHASONE 4 MG/ML 1ML VIAL (J1100) As Ordered ONE (12:42)
[2016-11-03] MEDS ORDERED: LIDOCAINE 2% INJ 100 MG/5 ML SDV (FOR ANES.) As Ordered ONE (12:42)
[2016-11-03] MEDS ORDERED: PROPOFOL 200 MG/20 ML VIAL As Ordered ONE ×2 (12:42→12:43)
[2016-11-03] MEDS ORDERED: fentaNYL 250 MCG/5 ML INJECTION (J3010) As Ordered ONE ×2 (12:42→13:27)
[2016-11-03] MEDS ORDERED: ONDANSETRON 4MG/2ML VIAL (J2405) As Ordered ONE (12:42)
[2016-11-03] MEDS ORDERED: GLYCOPYRROLATE INJ 0.2 MG/ML 2 ML VIAL As Ordered ONE (12:42)
[2016-11-03] MEDS ORDERED: PERCOCET 5MG/325MG TAB As Ordered ONE ×2 (14:55→15:20)
[2016-11-03] MEDS ORDERED: fentaNYL 100 MCG/2 ML INJECTION (J3010) As Ordered ONE ×3 (14:56→15:50)
[2016-11-03] MEDS: fentaNYL 100 MCG/2 ML INJECTION (J3010) IV PRN ×8 (15:00→16:00)
[2016-11-03] MEDS: PERCOCET 5MG/325MG TAB PO PRN ×4 (15:00→23:25)
[2016-11-03] MEDS ORDERED: MEPERIDINE INJ 25 MG/ML VIAL (J2175) As Ordered ONE ×2 (15:25→15:37)
[2016-11-03] MEDS: MEPERIDINE INJ 25 MG/ML VIAL (J2175) IV PRN ×2 (15:30→15:39)
[2016-11-03] MEDS ORDERED: ONDANSETRON 4MG/2ML VIAL (J2405) IV PRN (15:30)
[2016-11-03] MEDS ORDERED: MIDAZOLAM INJ 2 MG/2 ML VIAL (J2250) IV ONE (16:00)
[2016-11-03] MEDS ORDERED: traMADol 50 MG TAB PO PRN (16:15)
[2016-11-03] MEDS ORDERED: fentaNYL 100 MCG/2 ML INJECTION (J3010) IV PRN (16:15)
[2016-11-03 16:30] VITALS: BP 123/69
[2016-11-03 17:00] VITALS: BP 118/71
[2016-11-03] MEDS: LR 1,000 ML IV SCH (17:00)
[2016-11-03 18:00] VITALS: BP 128/68
[2016-11-03 20:00] VITALS: BP 129/66
[2016-11-03 21:00] VITALS: BP 126/74
[2016-11-03] MEDS: IBUPROFEN 600 MG TAB PO PRN (21:18)
[2016-11-04] VITALS: BP 131/69
[2016-11-04] MEDS: LR 1,000 ML IV SCH (01:06)
[2016-11-04] MEDS: PERCOCET 5MG/325MG TAB PO PRN ×2 (03:36→08:25)
[2016-11-04 04:00] VITALS: BP 130/62
[2016-11-04] MEDS: IBUPROFEN 600 MG TAB PO PRN (04:46)
--- NOTE | 2016-11-04 06:19 | RO ---
DATE OF PROCEDURE: 11/03/2016 PREPROCEDURE DIAGNOSES: Pain, bleeding, failed conservative efforts, fibroid and expected adhesions. POSTPROCEDURE DIAGNOSES: Pain, bleeding, failed conservative efforts, fibroid and expected adhesions. PROCEDURE: Robotic assisted hysterectomy with right salpingectomy and removal of Filshie clip. Patient had already had a left salpingectomy. She retained both of her ovaries. SURGEON: Dr. Laura Fernandez CYTOMETRY TECHNOLOGIST: Teresa Dejesus. ANESTHESIA: General endotracheal anesthesia. ESTIMATED BLOOD LOSS: BRIEF DESCRIPTION OF PROCEDURE AND FINDINGS: Christiane was brought to the operating room where sufficient general endotracheal anesthesia was induced. She was prepped, draped and positioned in the usual sterile fashion with the uterine manipulator placed for the robot in a normal way and the Marsh with the ability to backfill. We then turned our attention to the abdomen and her previous laparoscopic scar at the umbilicus was used for a transverse incision where sharp and blunt dissection continued through the subcutaneous tissue to the level of the rectus fascia which was elevated with Kirsten clamps, transected transversely and then #0 Vicryl retention sutures placed. Peritoneum was then entered under direct visualization and the Raymundo cannula placed in an open laparoscopic technique and CO2 insufflation was then begun. After adequate CO2 insufflation, the peritoneal cavity was visualized. There were normal shiny peritoneal surfaces throughout without excrescence, ascites or exudate but there were adhesions and some scarring from her previous tubal and her previous salpingectomy and I suspect from her section, not that much upper abdominal scarring although she has also had a cholecystectomy. She definitely had some adhesions of the epiploica of the descending bowel to the left adnexa and these were carefully taken down. First of course we had the umbilical port and then two left sided and one right sided port were placed. Patient was placed in Trendelenburg and the robot was docked. Then using the robot, we freed the adhesions of the epiploica of the descending colon from the lateral uterus and the mesentery on that side as well as the round ligament and there are photographs that show the adhesion before dissection and after. We then having worked through that dissection carefully, freed the utero-ovarian suspensory ligament on the left and the round ligament on the left. Again she had already had a left salpingectomy. Attention was turned to the right side. There is scarring from the previous tubal and a Filshie clip in place and the distal portion of the tube was carefully freed from the ovary and then blood supply to the ovary carefully avoided so as to preserve that ovary for this 26-year-old patient and after the tube has been freed both distal and proximal portions but still remained attached to the uterus as did the Filshie clip, we went ahead and cauterized and transected the utero-ovarian suspensory ligament on the right side and the round ligament on the right side. We then had to work very carefully through multiple adhesions of the bladder to the anterior uterus. Several filmy layers of adhesions were simply cut cold just with the scissors without cautery anteriorly and then the bladder was backfilled and it was clear that it was adherent well up over the lower uterine segment and so we worked very carefully through the peritoneum. Posteriorly it was readily possible to drop down that posterior leaflet of the broad ligament and get the ureter away posteriorly and come across behind the uterine manipulator cut getting the peritoneum free but anteriorly there was considerable dissection necessary. We backfilled the bladder multiple times to confirm its location and very carefully worked around these adhesions using the scissors without cautery so was to minimize any risk of bladder injury, so we did not use cautery over the anterior uterus at all. We cut around this slowly, tediously using robotic scissors just in the cold form. Having freed the uterine vasculature, we did cauterize it and then carefully went back to freeing the bladder further and further. When we could finally displace the bladder anteriorly after considerable dissection and repeated efforts at backfilling and freeing it and cutting it free, we then completed the cauterization using vasculature and then began the colpotomy posteriorly where we had easy visualization, worked our way through where we had cauterized the uterine vasculature and then worked our way through anteriorly where we had freed the bladder. The uterus was then delivered into the vagina to maintain pneumo and two layer closure of vaginal cuff using #2-0 V-Loc was undertaken. We had care to incorporate the uterosacrals in this young patient to maintain good support. After the closure of the vaginal cuff in those two layers with good approximation and hemostasis achieved, pelvis was carefully re-evaluated. There was no evidence of persistent bleeding. The CO2 was allowed to escape the abdomen. The robot was undocked. The patient was removed from Trendelenburg and the fascial wound of the umbilicus was closed with #0 Vicryl retention suture and the skin at all four sites were closed with #3-0 Vicryl in subcuticular stitch with dry sterile dressings and applied. ESTIMATED BLOOD LOSS FOR THE PROCEDURE: Maybe 50 mL. FLUID REPLACEMENT: Crystalloid. COMPLICATIONS: None. CONDITION AND DISPOSITION: Christiane tolerated the procedure well and was recovering in the recovery room in good condition.
[2016-11-04 07:44] LABS: MEAN CORPUSCULAR HEMOGLOBIN 31.8 pg (27.0-33.0); MEAN CORPUSCULAR HGB CONC 34.5 g/dl (32.0-36.5); WHITE BLOOD COUNT 14.1 K/mm3 (4.0-10.0)
[2016-11-04 08:00] VITALS: BP 113/53
[2016-11-04 08:55] VITALS: BP 130/62
[2016-11-04] MEDS ORDERED: ADVI200T PO (09:55)
[2016-11-04] MEDS ORDERED: OXYC1TAB23 PO (09:56)
== END 2016-11-04 10:45 | disposition home or self-care (01) ==
LOC: M SDC 09:54 → M PED 15:12 → M SDC 11-04 10:45
PROVIDERS: ATTEND Obstetrics & Gynecology
DX: R10.2 Pelvic and perineal pain (principal); D25.9 Leiomyoma of uterus, unspecified; N73.6 Female pelvic peritoneal adhesions (postinfective); J45.909 Unspecified asthma, uncomplicated; F32.9 Major depressive disorder, single episode, unspecified; F17.210 Nicotine dependence, cigarettes, uncomplicated; Z88.0 Allergy status to penicillin; Z88.5 Allergy status to narcotic agent
CPT/HCPCS: 36415; 58571; 85027; 86850; 86900; 86901; 88307; J0690; J1100; J1885; J2175; J2250; J2405; J2710; J3010; Q9968

== ENCOUNTER 2016-11-06 19:48 | Emergency (ER) | payer BC ==
[~2016-11-06] VITALS: Ht 167.6 cm; Wt 56.8 kg
[~2016-11-06 19:48] MED LIST changes: +ADVI200T PO; +OXYC1TAB23 PO
[2016-11-06] MEDS ORDERED: KETOROLAC 30 MG/ML VIAL (J1885) IV ONE (20:15)
[2016-11-06] MEDS ORDERED: ONDANSETRON 4MG/2ML VIAL (J2405) IV ONE (20:15)
[2016-11-06] MEDS ORDERED: NS 1,000 ML IV ONE (20:15)
[2016-11-06 20:36] LABS: BASO # 0.1 K/mm3 (0.0-0.2); BASO % 0.8 % (0.0-1.0); EOS # 0.2 K/mm3 (0.0-0.50); EOS % 2.4 % (0.0-3.0); LARGE UNSTAINED CELL # 0.1 K/mm3 (0.0-0.4); LARGE UNSTAINED CELL % 1.1 % (0.0-4.0); LYMPH # 2.1 K/mm3 (1.5-6.5); MEAN CORPUSCULAR HEMOGLOBIN 31.4 pg (27.0-33.0); MEAN CORPUSCULAR HGB CONC 34.2 g/dl (32.0-36.5); MEAN CORPUSCULAR VOLUME 91.8 fl (80.0-96.0); MONO # 0.4 K/mm3 (0.0-0.8); NEUTROPHILS # 4.5 K/mm3 (1.8-7.7); NEUTROPHILS % 61.6 % (36.0-66.0); PLATELET COUNT, AUTOMATED 336 k/mm3 (150-450); RED CELL DISTRIBUTION WIDTH 11.7 % (11.5-14.5); WHITE BLOOD COUNT 7.3 K/mm3 (4.0-10.0)
[2016-11-06 21:01] LABS: ALBUMIN 3.6 GM/DL (3.2-5.2); ALBUMIN/GLOBULIN RATIO 1.29 (1.00-1.93); ALKALINE PHOSPHATASE 142 U/L (45-117); ALT/SGPT 322 U/L (12-78); ANION GAP 5 MEQ/L (8-16); AST/SGOT 311 U/L (15-37); BILIRUBIN,DIRECT 0.3 MG/DL (0.0-0.2); BILIRUBIN,TOTAL 0.7 MG/DL (0.2-1.0); BLOOD UREA NITROGEN 9 MG/DL (7-18); CALCIUM LEVEL 8.5 MG/DL (8.5-10.1); CARBON DIOXIDE LEVEL 29 MEQ/L (21-32); CHLORIDE LEVEL 108 MEQ/L (98-107); CREATININE FOR GFR 0.72 MG/DL (0.55-1.02); GLOMERULAR FILTRATION RATE > 60.0 (>60); GLUCOSE, FASTING 77 MG/DL (70-105); POTASSIUM SERUM 3.7 MEQ/L (3.5-5.1); SODIUM LEVEL 142 MEQ/L (136-145); TOTAL PROTEIN 6.4 GM/DL (6.4-8.2)
[2016-11-06] MEDS ORDERED: MAGNESIUM CITRATE 300 ML BTL PO ONE (21:30)
[2016-11-06] MEDS ORDERED: PROMETHAZINE INJ 25 MG/ML VIAL (J2550) IV ONE (21:30)
[2016-11-06 22:30] VITALS: BP 133/69
== END 2016-11-06 22:34 | disposition home or self-care (01) ==
LOC: M ED 20:44
DX: K59.00 Constipation, unspecified (principal); R10.2 Pelvic and perineal pain; F99 Mental disorder, not otherwise specified; G89.29 Other chronic pain; F17.210 Nicotine dependence, cigarettes, uncomplicated; Z98.890 Other specified postprocedural states; Z88.1 Allergy status to other antibiotic agents; Z88.5 Allergy status to narcotic agent
CPT/HCPCS: 80048; 80076; 81001; 83690; 85025; 96361; 96374; 96375; 99283; J1885; J2405

== ENCOUNTER 2016-11-25 18:38 | Emergency (ER) | payer BC ==
[~2016-11-25] VITALS: Ht 170.2 cm; Wt 97.2 kg
[2016-11-25 19:14] LABS: BASO # 0.1 K/mm3 (0.0-0.2); BASO % 0.9 % (0.0-1.0); EOS # 0.2 K/mm3 (0.0-0.50); EOS % 1.7 % (0.0-3.0); LARGE UNSTAINED CELL # 0.1 K/mm3 (0.0-0.4); LARGE UNSTAINED CELL % 1.3 % (0.0-4.0); LYMPH # 2.5 K/mm3 (1.5-6.5); LYMPH % 21.8 % (24.0-44.0); MEAN CORPUSCULAR HEMOGLOBIN 30.8 pg (27.0-33.0); MEAN CORPUSCULAR VOLUME 90.6 fl (80.0-96.0); MONO # 0.5 K/mm3 (0.0-0.8); MONO % 4.2 % (0.0-5.0); NEUTROPHILS # 7.5 K/mm3 (1.8-7.7); PLATELET COUNT, AUTOMATED 355 k/mm3 (150-450); RED CELL DISTRIBUTION WIDTH 12.3 % (11.5-14.5); WHITE BLOOD COUNT 10.7 K/mm3 (4.0-10.0)
[2016-11-25] MEDS: NS 1,000 ML IV ONE (19:15)
[2016-11-25 19:21] LABS: INR 1.09
[2016-11-25 19:45] LABS: ANION GAP 7 MEQ/L (8-16); BLOOD UREA NITROGEN 11 MG/DL (7-18); CALCIUM LEVEL 8.6 MG/DL (8.5-10.1); CARBON DIOXIDE LEVEL 23 MEQ/L (21-32); CHLORIDE LEVEL 109 MEQ/L (98-107); CREATININE FOR GFR 0.86 MG/DL (0.55-1.02); GLOMERULAR FILTRATION RATE > 60.0 (>60); GLUCOSE, FASTING 83 MG/DL (70-105); POTASSIUM SERUM 3.6 MEQ/L (3.5-5.1); SODIUM LEVEL 139 MEQ/L (136-145)
[2016-11-25] MEDS ORDERED: ISOVUE-370 76% 100ML VIAL (Q9967) As Ordered ONE (19:48)
[2016-11-25] MEDS: NS 500 ML IV ONE (21:00)
--- NOTE | 2016-11-25 21:20 | REPUSA ---
CLINICAL HISTORY: POST OP BLEEDING TECHNIQUE: Multiple axial, sagittal and coronal CT images were obtained through the abdomen and pelvi s after administration of IV contrast material. Patient was scanned during delayed urographic phase w ith all contrast in the collecting system and bladder. COMMENTS: The liver is of uniform attenuation without mass or defect. There is no intra or extrahepatic biliary ductal dilatation. The spleen is normal. The gallbladder is surgically absent. The pancreas is of no rmal contour and attenuation characteristics. There is no evidence of adrenal mass. The kidneys are normal in size, shape and configuration. No renal or ureteral calculi are identified. There is no hydroureter or hydronephrosis. There is no evidence for appendicitis. There is no bowel wall thickening. No evidence for small or la rge bowel obstruction. There is no evidence of abdominal ascites or lymphadenopathy. There is no evidence of intrinsic or extrinsic bladder mass. There is no pelvic ascites or lymphadeno eliceo. Images of the lung bases show no evidence of pleural or parenchymal mass. There are no pleural effusi ons. The bony structures are free of lytic or blastic lesions. IMPRESSION: Study limitation as above. No acute pathology. Thank you for your kind referral of this patient.
[2016-11-25 22:16] VITALS: BP 126/60
[2016-11-25] MEDS ORDERED: ACETAMINOPHEN 325 MG TAB PO ONE (22:45)
== END 2016-11-25 22:53 | disposition home or self-care (01) ==
LOC: M ED 18:38 → EDBD 18:38 → M ED 22:53
DX: N93.9 Abnormal uterine and vaginal bleeding, unspecified (principal); Z90.79 Acquired absence of other genital organ(s); Z88.1 Allergy status to other antibiotic agents; Z88.5 Allergy status to narcotic agent; Z88.8 Allergy status to other drugs, medicaments and biological substances
CPT/HCPCS: 36415; 74177; 80048; 85025; 85610; 85730; 86850; 86900; 86901; 96360; 96361; 99285; Q9967

== ENCOUNTER 2016-11-28 21:08 | Emergency (ER) | payer BC ==
[~2016-11-28] VITALS: Ht 167.6 cm; Wt 97.7 kg
[2016-11-28] MEDS ORDERED: NS 1,000 ML IV ONE (22:45)
[2016-11-28 22:56] LABS: BASO % 0.6 % (0.0-1.0); EOS # 0.3 K/mm3 (0.0-0.50); EOS % 2.8 % (0.0-3.0); LARGE UNSTAINED CELL # 0.1 K/mm3 (0.0-0.4); LARGE UNSTAINED CELL % 1.3 % (0.0-4.0); LYMPH # 3.1 K/mm3 (1.5-6.5); LYMPH % 30.2 % (24.0-44.0); MEAN CORPUSCULAR HEMOGLOBIN 31.2 pg (27.0-33.0); MEAN CORPUSCULAR HGB CONC 34.5 g/dl (32.0-36.5); MEAN CORPUSCULAR VOLUME 90.3 fl (80.0-96.0); MONO # 0.4 K/mm3 (0.0-0.8); MONO % 4.1 % (0.0-5.0); NEUTROPHILS # 6.1 K/mm3 (1.8-7.7); NEUTROPHILS % 61.1 % (36.0-66.0); PLATELET COUNT, AUTOMATED 338 k/mm3 (150-450); RED CELL DISTRIBUTION WIDTH 12.2 % (11.5-14.5)
[2016-11-28 23:38] LABS: ANION GAP 6 MEQ/L (8-16); BLOOD UREA NITROGEN 14 MG/DL (7-18); CALCIUM LEVEL 8.8 MG/DL (8.5-10.1); CARBON DIOXIDE LEVEL 25 MEQ/L (21-32); CHLORIDE LEVEL 109 MEQ/L (98-107); CREATININE FOR GFR 0.91 MG/DL (0.55-1.02); GLOMERULAR FILTRATION RATE > 60.0 (>60); GLUCOSE, FASTING 80 MG/DL (70-105); POTASSIUM SERUM 3.8 MEQ/L (3.5-5.1); SODIUM LEVEL 140 MEQ/L (136-145)
[2016-11-29] MEDS ORDERED: KETOROLAC 30 MG/ML VIAL (J1885) IV ONE (01:00)
[2016-11-29 02:11] VITALS: BP 108/53
== END 2016-11-29 02:20 | disposition home or self-care (01) ==
LOC: M ED 21:08
DX: N99.820 Postprocedural hemorrhage of a genitourinary system organ or structure following a genitourinary system procedure (principal); F17.200 Nicotine dependence, unspecified, uncomplicated; Z90.79 Acquired absence of other genital organ(s); Z90.49 Acquired absence of other specified parts of digestive tract; Z88.1 Allergy status to other antibiotic agents; Z88.5 Allergy status to narcotic agent; Z88.8 Allergy status to other drugs, medicaments and biological substances
CPT/HCPCS: 36415; 80048; 85025; 93041; 96374; 99285; J1885

== ENCOUNTER 2016-12-31 21:15 | Emergency (ER) | payer OTHER, BC ==
[~2016-12-31] VITALS: Ht 167.6 cm; Wt 95.5 kg
[2016-12-31] MEDS ORDERED: NS 1,000 ML IV ONE (21:45)
[2016-12-31] MEDS ORDERED: ADACEL/BOOSTRIX VACCINE (DIPHTH/PERTUSS/ACELL/TETANUS)0.5ML SYR (90715) IM ONE (22:00)
[2016-12-31 22:01] LABS: BASO % 0.5 % (0.0-1.0); EOS # 0.2 K/mm3 (0.0-0.50); EOS % 1.7 % (0.0-3.0); LARGE UNSTAINED CELL # 0.1 K/mm3 (0.0-0.4); LARGE UNSTAINED CELL % 1.3 % (0.0-4.0); LYMPH # 2.8 K/mm3 (1.5-6.5); LYMPH % 29.1 % (24.0-44.0); MEAN CORPUSCULAR HEMOGLOBIN 30.8 pg (27.0-33.0); MEAN CORPUSCULAR HGB CONC 34.4 g/dl (32.0-36.5); MEAN CORPUSCULAR VOLUME 89.6 fl (80.0-96.0); MONO # 0.4 K/mm3 (0.0-0.8); MONO % 4.1 % (0.0-5.0); NEUTROPHILS # 5.9 K/mm3 (1.8-7.7); NEUTROPHILS % 63.2 % (36.0-66.0); PLATELET COUNT, AUTOMATED 364 k/mm3 (150-450); WHITE BLOOD COUNT 9.3 K/mm3 (4.0-10.0)
[2016-12-31 22:02] LABS: CONTROL LINE HCG INT CTR LINE PRESENT
[2016-12-31 22:10] LABS: ALBUMIN 4.1 GM/DL (3.2-5.2); ALBUMIN/GLOBULIN RATIO 1.21 (1.00-1.93); ALKALINE PHOSPHATASE 86 U/L (45-117); ALT/SGPT 21 U/L (12-78); ANION GAP 9 MEQ/L (8-16); AST/SGOT 14 U/L (15-37); BILIRUBIN,DIRECT < 0.1 MG/DL (0.0-0.2); BILIRUBIN,TOTAL 0.2 MG/DL (0.2-1.0); BLOOD UREA NITROGEN 15 MG/DL (7-18); CALCIUM LEVEL 8.8 MG/DL (8.5-10.1); CARBON DIOXIDE LEVEL 24 MEQ/L (21-32); CHLORIDE LEVEL 109 MEQ/L (98-107); CREATININE FOR GFR 0.91 MG/DL (0.55-1.02); GLOMERULAR FILTRATION RATE > 60.0 (>60); GLUCOSE, FASTING 90 MG/DL (70-105); POTASSIUM SERUM 3.8 MEQ/L (3.5-5.1); SODIUM LEVEL 142 MEQ/L (136-145); TOTAL PROTEIN 7.5 GM/DL (6.4-8.2)
[2016-12-31] MEDS ORDERED: ISOVUE-370 76% 100ML VIAL (Q9967) As Ordered ONE (22:13)
[2016-12-31] MEDS ORDERED: KETOROLAC 30 MG/ML VIAL (J1885) IV ONE (23:30)
[2016-12-31 23:45] VITALS: BP 120/59
--- NOTE | 2017-01-01 00:07 | REPUSA ---
HISTORY: Trauma COMPARISON: No relevant comparison is available at the time of interpretation. CT L-SPINE with reformations: L1 through S1: Neural rings intact without fracture. Vertebral body heights normal, without compressi on fracture. Central canal: Patent without neural encroachment. Alignment (by reformations): Normal lumbar lordosis without listhesis. IMPRESSION: Nontraumatic L-spine.
--- NOTE | 2017-01-01 00:07 | REPUSA ---
HISTORY: Trauma COMPARISON: No relevant comparison is available at the time of interpretation. CT T-SPINE with reformations: T1 through T12: Neural rings intact without fracture. Vertebral body heights normal, without compress ion fracture. Central canal: Patent without neural encroachment. Alignment (by reformations): Normal thoracic kyphosis without listhesis. IMPRESSION: Nontraumatic T-spine.
--- NOTE | 2017-01-01 00:07 | REPUSA ---
CLINICAL HISTORY: Trauma. TECHNIQUE: CT chest, abdomen and pelvis with contrast. Total DLP combined torso 894.8 mGy*cm COMPARISON: CT chest November 26, 2014. CT CHEST WITH CONTRAST Great vessels: The aorta is normal caliber. The pulmonary arteries are patent to the extent visualize d. Heart: Normal size, no effusion. Mediastinum: Nontraumatic. Lungs: Clear, without contusion, pneumothorax or effusion. Segmental air trapping in the left upper l obe. Skeletal thorax: No visible fractures. CT ABDOMEN WITH CONTRAST Liver: Nontraumatic. No ductal dilation. Gallbladder: Cholecystectomy. Pancreas: Nontraumatic. No ductal dilation. Spleen: Mild 12 cm splenomegaly.. Adrenals: Normal. Kidneys: Nontraumatic. No hydronephrosis. Aorta: Nontraumatic. Normal caliber. Bowel loops: Nondistended. Peritoneum: No free air. No ascites. Lumbar spine: No evidence of acute fracture. CT PELVIS WITH CONTRAST Pelvis: No visible fracture. Bladder: Decompressed by Marsh catheter. Pelvic organs: Uterus is not visualized likely hysterectomy. Colon: Normal. Peritoneum: No free fluid. IMPRESSION: No evidence of trauma to the chest, abdomen or pelvis.
--- NOTE | 2017-01-01 00:07 | REPUSA ---
CLINICAL HISTORY: Head trauma COMPARISON: No study for comparison is available at the time of interpretation. TECHNIQUE: Head CT without contrast. Total DLP combined head and C-spine 1284.4 mGy*cm Brain: No intracranial hemorrhage or parenchymal edema. Calvarium: No depressed fractures. Sinuses (partially visualized): No hemorrhage fluid levels. IMPRESSION: No intracranial hemorrhage or fracture.
--- NOTE | 2017-01-01 00:07 | REPUSA ---
CLINICAL HISTORY: Trauma COMPARISON: No study for comparison is available at the time of interpretation. TECHNIQUE: Cervical CT without contrast, with reformations. Total DLP combined head and C-spine 1284. 4 mGy*cm C1 through T1: Neural rings intact without fracture. Dens intact. Central canal: Patent without neural encroachment. Degenerative disc disease at C5-6. Alignment (by reformations): No acute listhesis. IMPRESSION: Nontraumatic C-spine.
--- NOTE | 2017-01-01 08:35 | REP ---
Left ankle series: Four views: History: Trauma. Findings: Four views of the left ankle show normal bones joints and soft tissues. No fracture or subluxation is seen. Impression: Negative left ankle radiographs. Signed by Papi Levy MD 01/01/2017 08:50 A
--- NOTE | 2017-01-01 08:36 | REP ---
Left foot series: Four views. History: Trauma. Findings: Four views of the left foot demonstrate overall normal mineralization. No foot fracture is appreciated. No opaque foreign body seen. Impression: Negative radiographs of the left foot. Signed by Papi Levy MD 01/01/2017 08:50 A
--- NOTE | 2017-01-01 08:36 | REP ---
Left hand series: Four views. History: Trauma. Findings: Four views of the left hand show normal bones, joints and soft tissues. No fracture or subluxation is seen. Impression: No fracture noted. Signed by Papi Levy MD 01/01/2017 08:50 A
--- NOTE | 2017-01-01 08:36 | REP ---
Pelvis left hip: Three views: History: Trauma. Findings: The bony pelvic ring is intact. No hip fracture is seen on either side. Ureteral and bladder contrast opacification is seen from previously performed CT study. The bladder appears intact. No sacral fracture seen. Impression: No fracture noted. Signed by Papi Levy MD 01/01/2017 08:50 A
--- NOTE | 2017-01-01 08:36 | REP ---
Right elbow series: Four views. History: Trauma. Findings: Four views of the right elbow demonstrate an intravenous cannula in place antecubital fossa. Bones, joints, and soft tissues are otherwise unremarkable. No fracture subluxation or joint effusion is seen. Impression: No fracture noted. Signed by Papi Levy MD 01/01/2017 08:50 A
== END 2017-01-01 00:30 | disposition home or self-care (01) ==
LOC: M ED 21:15 → EDBD 21:15 → M ED 01-01 00:30
DX: S70.02XA Contusion of left hip, initial encounter (principal); S90.32XA Contusion of left foot, initial encounter; S50.311A Abrasion of right elbow, initial encounter; S50.312A Abrasion of left elbow, initial encounter; S80.211A Abrasion, right knee, initial encounter; V20.5XXA Motorcycle passenger injured in collision with pedestrian or animal in traffic accident, initial encounter; Y92.410 Unspecified street and highway as the place of occurrence of the external cause; Z88.5 Allergy status to narcotic agent; Z88.0 Allergy status to penicillin
CPT/HCPCS: 51702; 70450; 71260; 72125; 72128; 72131; 73080; 73110; 73502; 73610; 73630; 74177; 80048; 80076; 84703; 85025; 86850; 86900; 86901; 90471; 90715; 93041; 94760; 99285; Q9967

== ENCOUNTER → 2017-02-22 | Outpatient (CLI) | payer BC, OTHER ==
--- NOTE | 2017-02-22 17:46 | REP ---
Bilateral ribs and PA chest 04/22 views: Right ribs four views: There is no rib fracture or other rib abnormality. Left ribs four views: There is no rib fracture or other rib abnormality. PA chest: There is no pneumothorax, hemothorax or pulmonary contusion. There are no infiltrates. The interstitium is normal. Lung castaneda are clear. Cardiac size is normal. The terrence, mediastinum, bony thorax unremarkable. No change from the comparison study of 06/02/2016. Signed by Tommy Bryant MD 02/22/2017 05:37 P
== END ==
LOC: M LRY 16:52
PROVIDERS: ATTEND Nurse Practitioner Family
DX: R05 Cough (principal)

== ENCOUNTER → 2017-06-22 | Outpatient (REF) | payer BC | LOC: M SFHCLERA 18:26 | DX: K52.9 Noninfective gastroenteritis and colitis, unspecified (principal) | CPT/HCPCS: 87086 ==

== ENCOUNTER 2020-05-16 14:44 | Emergency (ER) | payer BC, OTHER ==
[~2020-05-16 14:44] MED LIST changes: +HYDR-3715 PO; -NORCOTAB PO
[2020-05-16] MEDS ORDERED: KETOROLAC 30 MG/ML 1ML VIAL IM ONE (15:00)
--- NOTE | 2020-05-16 15:45 | REP ---
INDICATION: CP COMPARISON: 02/22/2017 TECHNIQUE: Portable AP view of the chest FINDINGS: The mediastinum and cardiac silhouette are stable and within normal limits for portable technique. The lung castaneda are clear without acute consolidation, effusion, or pneumothorax. Skeletal structures are intact. IMPRESSION: No acute cardiopulmonary process appreciated. <Electronically signed by Ramin Siddiqui > 05/16/20 [id number]
[2020-05-16 17:13] VITALS: BP 116/68
--- NOTE | 2020-05-16 18:55 | ECGEPIP ---
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
== END 2020-05-16 17:15 | disposition home or self-care (01) ==
LOC: M ED 14:44
DX: U07.1 COVID-19 (principal); F17.200 Nicotine dependence, unspecified, uncomplicated; Z88.0 Allergy status to penicillin; Z88.5 Allergy status to narcotic agent
CPT/HCPCS: 71045; 93005; 96372; 99284; J1885

== ENCOUNTER 2020-05-26 01:31 | Emergency (ER) | payer OTHER ==
[~2020-05-26] VITALS: Ht 167.6 cm; Wt 92.4 kg
--- OUTSIDE RECORDS SUMMARY | 2020-05-26 01:36 | CCD ---
Author Author [facility] Organization [facility] Address Unknown Phone Unavailable Support Name Relationship Address Phone MALLIKA OMAR Next Of Kin [address] [place] [address] CARTTL Next Of Kin [address] [place] [address] UN Next Of Kin Unknown Unavailable NONE, PT PER Next Of Kin - -, - - - FIRSTSTU Next Of Kin [address] [place] [address] UE Next Of Kin Unknown Unavailable OMAR MALLIKA Next Of Kin [address] [place] [address] VIDYA MARTINEZ Next Of Kin [address] [place] [address] [facility] Next Of Kin [address] [place] [address] [facility] Next Of Kin [address] [place] [address] VIDYA CAMPA Next Of [address] [place] [address] MELANIE TENA Next Of Kin [address] [place] [address] Vidya Campa ECON [address] [place] [address] Unavailable Vidya Martinez [address] [place] [address] Unavailable Re-disclosure Warning The records that you are about to access may contain information from federally-assisted alcohol or drug abuse programs. If such information is present, then the following federally mandated warning applies: This information has been disclosed to you from records protected by federal confidentiality rules (42 CFR part 2). The federal rules prohibit you from making any further disclosure of this information unless further disclosure is expressly permitted by the written consent of the person to whom it pertains or as otherwise permitted by 42 CFR part 2. A general authorization for the release of medical or other information is NOT sufficient for this purpose. The Federal rules restrict any use of the information to criminally investigate or prosecute any alcohol or drug abuse patient.The records that you are about to access may contain highly sensitive health information, the redisclosure of which is protected by Article 27-F of the [facility] Public Health law. If you continue you may have access to information: Regarding HIV / AIDS; Provided by facilities licensed or operated by the [facility] Office of Mental Health; or Provided by the [facility] Office for People With Developmental Disabilities. If such information is present, then the following [facility] mandated warning applies: This information has been disclosed to you from confidential records which are protected by state law. State law prohibits you from making any further disclosure of this information without the specific written consent of the person to whom it pertains, or as otherwise permitted by law. Any unauthorized further disclosure in violation of state law may result in a fine or assisted sentence or both. A general authorization for the release of medical or other information is NOT sufficient authorization for further disc losure. Family History Family Member Name Family Member Gender Family Member Status Date o f Status Description Data Source(s) Unknown Male Problem MEDENT ([facility]) Insurance Providers Payer name Policy type / Coverage type Policy ID Covered green party ID Covered green party's relationship to johnson Policy Johnson Plan Information AVMED [id number] SP [id number] [facility] [id number] SP [id number] [facility] [id number] 2 [id number] EXCELL BCBS B [id number] O NRO [id number] ANSI-Commercial [id number] BLUE CROSS BLUE SHIELD -PHYSICIAN [id number] 01 [id number] BLUE CROSS BLUE SHIELD -O/P [id number] 01 [id number] BS [facility] [id number] 2 [id number] Blue Cross Blue Shield CL Commercial [id number] Family Dep endent [id number] BLUE CROSS BLUE SHIELD CL BS [id number] 01 [id number] PROGRESSIVE CO NO FAULT O S PROGRESSIVE CO NO FAULT SP [id number] PROGRESSIVE CO NO FAULT O S [place] 101/600 [id number] SP [id number] [place] P[place]/307 [id number] HU2 [id number] BS [place] Medigap Part B Family Dependent BS [place] Commercial Family Dependent BC[place] 306/806 [id number] MO2 [id number] MEDICAID M [id number] S [id number] [place] BCBS B [id number] O [id number] MEDICAID [id number] SP [id number] BCBS [place] PPO 302/307 [id number] MO2 [id number] BC[place] PPO 302/307 [id number] MO2 [id number] BC[place] 306/806 [id number] MO2 [id number] BC[place] PPO 302/307 [id number] MO2 [id number] [place] BCBS P [id number] S VYS [id number] [place] 306/806 [id number] MO2 [id number] Results ID Date Data Source [id number] 05/14/2020 12:00:00 AM EST [facility] Name Value Range Interpretation Code Description Data Concha rce(s) Supporting Document(s) Carestart Rapid COVID Antigen Test [facility] This lab was reported by Desean [facility] June daniels. Procedure
[2020-05-26 02:20] LABS: BASO # 0.1 10^3/uL (0.0-0.2); BASO % 0.5 % (0.0-1.0); EOS # 0.1 10^3/uL (0.0-0.5); EOS % 1.1 % (0.0-3.0); HEMATOCRIT 43.9 % (36.0-47.0); LYMPH # 2.9 10^3/uL (1.5-5.0); LYMPH % 26.4 % (24.0-44.0); MEAN CORPUSCULAR HGB CONC 31.9 g/dl (32.0-36.5); MEAN CORPUSCULAR VOLUME 94.2 fl (80.0-96.0); MONO # 0.8 10^3/uL (0.0-0.8); NEUTROPHILS # 7.1 10^3/uL (1.5-8.5); NEUTROPHILS % 64.5 % (36.0-66.0); PLATELET COUNT, AUTOMATED 348 10^3/uL (150-450); RED BLOOD COUNT 4.66 10^6/uL (4.00-5.40)
[2020-05-26 03:07] LABS: BLOOD UREA NITROGEN 14 MG/DL (7-18); CALCIUM LEVEL 8.8 MG/DL (8.5-10.1); CARBON DIOXIDE LEVEL 26 MEQ/L (21-32); CHLORIDE LEVEL 105 MEQ/L (98-107); CK-MB VALUE MASS < 1.0 NG/ML (<3.6); CPK CREATINE PHOSPHOKINASE 58 U/L (26-192); GLOMERULAR FILTRATION RATE > 60.0 (>60); GLUCOSE, FASTING 116 MG/DL (70-100); MB/CK RELATIVE INDEX 1.72 (< OR =4); POTASSIUM SERUM 3.7 MEQ/L (3.5-5.1); SODIUM LEVEL 138 MEQ/L (136-145); TROPONIN I < 0.02 NG/ML (< 0.10)
[2020-05-26] MEDS ORDERED: PANTOPRAZOLE 40MG VIAL (C9113 PER 1) IV ONE (03:30)
[2020-05-26] MEDS ORDERED: GI COCKTAIL 50ML BTL(HYOSCYAMINE/MAALOX/LIDOCAINE VISCOUS)(1:3:1) PO ONE (03:30)
[2020-05-26] MEDS ORDERED: ISOVUE-370 76% 100ML VIAL As Ordered ONE (03:33)
[2020-05-26 03:55] LABS: ALBUMIN 4.3 GM/DL (3.2-5.2); ALT/SGPT 43 U/L (12-78); BILIRUBIN,DIRECT < 0.1 MG/DL (0.0-0.2); BILIRUBIN,TOTAL 0.2 MG/DL (0.2-1.0); FREE T4 0.97 NG/DL (0.76-1.46); PHOSPHORUS LEVEL 3.2 MG/DL (2.5-4.9); TOTAL PROTEIN 7.3 GM/DL (6.4-8.2)
--- NOTE | 2020-05-26 04:28 | REPVR ---
PROCEDURE INFORMATION: Exam: CT Angiography Chest With Contrast Exam date and time: 05/26/2020 3:26 AM Age: 30 years old Clinical indication: Chest pain; Type not specified; Additional info: Pleuritic chest pain TECHNIQUE: Imaging protocol: Computed tomographic angiography of the chest with intravenous contrast. 3D rendering (Not supervised by radiologist): MIP and/or 3D reconstructed images were created by the technologist. Radiation optimization: All CT scans at this facility use at least one of these dose optimization techniques: automated exposure control; mA and/or kV adjustment per patient size (includes targeted exams where dose is matched to clinical indication); or iterative reconstruction. Contrast material: ISO; Contrast volume: 75 ml; Contrast route: INTRAVENOUS (IV); COMPARISON: CT ANGIO CHEST 11/26/2014 10:25 PM FINDINGS: Pulmonary arteries: Normal. No pulmonary emboli. Aorta: Unremarkable. No aortic aneurysm. No aortic dissection. Lungs: There is a 2 mm nodule in the right middle lobe on axial image 53. Pleural space: Unremarkable. No pneumothorax. No pleural effusion. Heart: Unremarkable. No cardiomegaly. No pericardial effusion. Lymph nodes: Unremarkable. No enlarged lymph nodes. Bones/joints: There is a 6 mm sclerotic focus in T9 vertebral body, unchanged since 2017. There is a 6 mm sclerotic focus in the inferior aspect of T10 vertebral body new since 2017. Soft tissues: Unremarkable. IMPRESSION: 1. No CT evidence of pulmonary embolism or right heart strain. 2. 2 mm right middle lobe lung nodule, unchanged since 2017. No further follow-up is deemed necessary. 3. Sclerotic T9 vertebral body focus unchanged since 2019 likely bony island. 4. Sclerotic focus in T10 vertebral body new since 2017 of unclear etiology. Follow-up with MRI or bone scan with SPECT imaging may be considered, if clinically indicated. Electronically signed by: Donald Momin On 05/26/2020 04:29:04 AM
--- OUTSIDE RECORDS SUMMARY | 2020-05-26 04:45 | CCD ---
Author Author [facility] Organization [facility] Address Unknown Phone Unavailable Support Name Relationship Address Phone MALLIKA OMAR Next Of Kin [address] [place] [address] CARTTL Next Of Kin [address] [place] [address] [place] Next Of Kin Unknown Unavailable NONE, PT PER Next Of Kin - -, - - - FIRSTSTU Next Of Kin [address] [place] [address] UE Next Of Kin Unknown Unavailable OMAR MALLIKA Next Of Kin [address] [place] [address] VIDYA MARTINEZ Next Of Kin [address] [place] [address] [facility] Next Of Kin [address] [place] [address] [facility] Next Of Kin [address] [place] [address] VIDYA CAMPA Next Of Kin [address] [place] [address] MELANIE TENA Next Of Kin [address] [place] [address] Vidya Campa ECON [address] [place] [address] Unavailable Vidya Martinez [address] [place] [address] Unavailable Re-disclosure Warning The records that you [...] is protected by Article 27-F of the [facility] Public Health law. If you continue you may have access to information: Regarding HIV / AIDS; Provided by facilities licensed or operated by the [facility] Office of Mental Health; or Provided by the [facility] Office for People With Developmental Disabilities. If such information is present, then the following [facility] mandated warning applies: This information has been [...] law may result in a fine or group home sentence or both. A general authorization for the release of medical or other information is NOT sufficient authorization for further disc losure. Family History Family Member Name Family Member Gender Family Member Status Date o f Status Description Data Source(s) Unknown Male Problem MEDENT ([facility]) Insurance Providers Payer name Policy type / Coverage type Policy ID Covered democrat ID Covered democrat's relationship to johnson Policy Johnson Plan Information AVMED [id number] SP [id number] [facility] [id number] SP [id number] [facility] [id number] 2 [id number] EXCELL BCBS B [id number] O NRO [id number] ANSI-Commercial [id number] BLUE CROSS BLUE SHIELD -PHYSICIAN [id number] 01 [id number] BLUE CROSS BLUE SHIELD -O/P [id number] 01 [id number] BS [facility] [id number] 2 [id number] Blue Cross Blue Shield CL Commercial [id number] Family Dep endent [id number] BLUE CROSS BLUE SHIELD CL BS [id number] 01 [id number] PROGRESSIVE CO NO FAULT O S PROGRESSIVE CO NO FAULT SP [id number] PROGRESSIVE CO NO FAULT O S [place] 101/600 [id number] SP [id number] BC[place] PPO 302/307 [id number] HU2 [id number] BS [place] Medigap Part B Family Dependent BS [place] Commercial Family Dependent BCBS [place] 306/806 [id number] MO2 [id number] MEDICAID M [id number] [place] BCBS B [id number] O YND [id number] MEDICAID [id number] SP [id number] BCBS [place] PPO 302/307 [id number] MO2 [id number] BCBS [place] PPO 302/307 [id number] MO2 [id number] BC[place] 306/806 [id number] MO2 [id number] BCBS [place] PPO 302/307 [id number] MO2 [id number] [place] BCBS P [id number] S VYS [id number] [place] 306/806 [id number] MO2 [id number] Results ID Date Data Source [id number] 05/14/2020 12:00:00 AM EST [facility] Name Value Range Interpretation Code Description Data Concha rce(s) Supporting Document(s) Carestart Rapid COVID Antigen Test [facility] This lab was reported by Desean [facility] June daniels. Procedure
[2020-05-26 08:27] LABS: CK-MB VALUE MASS < 1.0 NG/ML (<3.6); CPK CREATINE PHOSPHOKINASE 49 U/L (26-192); MB/CK RELATIVE INDEX 2.04 (< OR =4); TROPONIN I < 0.02 NG/ML (< 0.10)
[2020-05-26] MEDS ORDERED: holter monitor (08:43)
--- NOTE | 2020-05-26 09:05 | ECGEPIP ---
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
--- NOTE | 2020-05-26 09:08 | ECGEPIP ---
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
[2020-05-26 09:30] VITALS: BP 133/81
--- NOTE | 2020-05-27 14:44 | ED PDOC ---
Post-Departure Follow-Up cta chest faxed to [facility] for fu Pancho Perez MD May 27, 2020 14:44
== END 2020-05-26 09:30 | disposition home or self-care (01) ==
LOC: M ED 01:31
DX: R00.2 Palpitations (principal); R91.1 Solitary pulmonary nodule; R07.89 Other chest pain; R11.0 Nausea; F17.200 Nicotine dependence, unspecified, uncomplicated; Z88.1 Allergy status to other antibiotic agents; Z88.5 Allergy status to narcotic agent
CPT/HCPCS: 71275; 80048; 80076; 82550; 82553; 83735; 84100; 84439; 84443; 84484; 85025; 93005; 93041; 94760; 96374; 99285; C9113; Q9967

== ENCOUNTER → 2020-07-08 | Outpatient (REF) | payer BC ==
[~2020-07-08] MED LIST changes: +holter monitor
[2020-07-08 14:10] LABS: HEMOGLOBIN A1c 4.8 %
[2020-07-08 14:15] LABS: CHOLESTEROL RISK RATIO 3.79 (<5)
== END ==
LOC: M SFHCPLAZ 11:16
PROVIDERS: ATTEND Family Medicine
DX: Z13.1 Encounter for screening for diabetes mellitus (principal); Z13.220 Encounter for screening for lipoid disorders

== ENCOUNTER → 2020-08-06 | Outpatient (REF) | payer BC ==
[2020-08-06 18:19] LABS: HEPATITIS B SURFACE ANTIBODY NEGATIVE (POSITIVE); HIV 1&2 SCREEN CENTAUR NEGATIVE (NEGATIVE)
[2020-08-06 19:57] LABS: CHLAMYDIA DNA AMPLIFICATION NEGATIVE (NEGATIVE); GC DNA AMPLIFICATION NEGATIVE (NEGATIVE)
== END ==
LOC: M SFHCPLAZ 14:36
PROVIDERS: ATTEND Family Medicine
DX: Z11.3 Encounter for screening for infections with a predominantly sexual mode of transmission (principal)

== ENCOUNTER 2021-02-09 11:11 | Emergency (ER) | payer BC ==
[~2021-02-09] VITALS: Ht 167.6 cm; Wt 91.0 kg
[2021-02-09] MEDS ORDERED: LEXA1TAB (11:40)
[2021-02-09] MEDS ORDERED: KETOROLAC 30 MG/ML 1ML VIAL IV ONE (13:45)
[2021-02-09] MEDS ORDERED: ONDANSETRON 4MG/2ML VIAL IV ONE (13:45)
[2021-02-09] MEDS ORDERED: NS 1,000 ML IV ONE (13:45)
[2021-02-09 14:28] LABS: BASO % 0.4 % (0.0-1.0); EOS # 0.1 10^3/uL (0.0-0.5); EOS % 0.7 % (0.0-3.0); LYMPH # 1.5 10^3/uL (1.5-5.0); LYMPH % 15.9 % (24.0-44.0); MEAN CORPUSCULAR HEMOGLOBIN 31.1 pg (27.0-33.0); MEAN CORPUSCULAR HGB CONC 33.3 g/dl (32.0-36.5); MEAN CORPUSCULAR VOLUME 93.3 fl (80.0-96.0); MONO % 10.1 % (2.0-8.0); NEUTROPHILS # 6.8 10^3/uL (1.5-8.5); NEUTROPHILS % 72.6 % (36.0-66.0); PLATELET COUNT, AUTOMATED 322 10^3/uL (150-450); WHITE BLOOD COUNT 9.4 10^3/uL (4.0-10.0)
[2021-02-09] MEDS ORDERED: ISOVUE-370 76% 100ML VIAL As Ordered ONE (14:37)
[2021-02-09 14:52] LABS: ALBUMIN 3.9 GM/DL (3.2-5.2); BILIRUBIN,DIRECT 0.1 MG/DL (0.0-0.2); BILIRUBIN,TOTAL 0.4 MG/DL (0.2-1.0)
--- NOTE | 2021-02-09 15:08 | REP ---
INDICATION: lower abd pain. COMPARISON: Comparison CT study December 31, 2016. TECHNIQUE: Helical scanning was acquired and 4 mm axial images are re-formatted. Coronal and sagittal MPR images were generated and reviewed. The contrast enhancement dose is 100 mL of intravenous Isovue 370. 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 There are surgical clips in the right upper quadrant post cholecystectomy. The lung bases are clear on axial CT images. The liver and the spleen are normal in size homogeneous in texture. Normal adrenal glands are observed bilaterally. Gallbladder surgically absent. Pancreas is unremarkable. The kidneys enhance symmetrically and are morphologically intact. No retroperitoneal mass or adenopathy is seen. Small and large bowel loops are normal in the upper abdomen. There are 2 normal-sized right lower quadrant small bowel mesenteric lymph nodes. A normal appendix is seen extending to the top of the inguinal canal. Small and large bowel loops are normal in the pelvis. The uterus is surgically absent. There are small evolving cysts in the right ovary. Urinary bladder is essentially empty at the time of scanning. No abdominal wall defect is observed. No bony destructive lesion is seen. IMPRESSION: Post cholecystectomy hysterectomy. Normal appendix seen. Involuting cysts in the right ovary. No acute abdominal or pelvic abnormality. <Electronically signed by Marcos Levy > 02/09/21 [id number]
[2021-02-09] MEDS ORDERED: ONDA4TAB6 PO (16:09)
[2021-02-09 16:39] VITALS: BP 133/75
[2021-02-09 16:44] LABS: RSV AMPLIFICATION NEGATIVE (NEGATIVE)
== END 2021-02-09 16:47 | disposition home or self-care (01) ==
LOC: M ED 11:11
DX: R10.30 Lower abdominal pain, unspecified (principal); R11.2 Nausea with vomiting, unspecified; F33.9 Major depressive disorder, recurrent, unspecified; F41.9 Anxiety disorder, unspecified; Z79.899 Other long term (current) drug therapy; Z88.0 Allergy status to penicillin; Z88.5 Allergy status to narcotic agent; F17.210 Nicotine dependence, cigarettes, uncomplicated; F12.20 Cannabis dependence, uncomplicated
CPT/HCPCS: 36415; 74177; 80047; 80076; 81001; 83690; 85025; 87631; 96361; 96374; 96375; 99284; J1885; J2405; Q9967

== ENCOUNTER → 2021-02-23 | Outpatient (REF) | payer BC ==
[~2021-02-23] MED LIST changes: +LEXA1TAB; +ONDA4TAB6 PO
== END ==
LOC: M LAB REF 18:33
PROVIDERS: ATTEND Physician Assistant
DX: D22.39 Melanocytic nevi of other parts of face (principal)

== ENCOUNTER 2021-03-21 09:09 | Emergency (ER) | payer BC ==
--- OUTSIDE RECORDS SUMMARY | 2021-03-21 09:14 | CCD ---
Author Author [facility] Organization [facility] Address Unknown Phone Unavailable Care Team Providers Care Crozer Operator Name Role Phone Letty Kent Unavailable PROBLEMS Type Condition ICD9-CM Code DXY37-[id number] Code Onset Dates Condition S tatus W/U Status Risk SNOMED Code Notes Problem Constipation, unspecified constipation type K59.00 Active confirmed 32975940 Problem Acne vulgaris L70.0 Active confirmed 562206 00 Problem Incidental lung nodule R91.1 Active confirmed 743140526 Problem Moderate episode of recurrent major depressive disorder F33.1 Active confirmed 869714735 Problem JUDE (generalized anxiety disorder) F41.1 Activ e confirmed [id number] ALLERGIES Allergen (clinical drug ingredient) Drug/Non Drug Allergy do cumented on EMR Reaction Allergy Type Onset Date Status morphine Morphine Sulfate(NDC Code:[address]-87) severe pain Drug Allergy Active amoxicillin Amoxicillin(NDC Code:[address]-68) bad yeast in fection Drug Allergy Active hydromorphone Dilaudid(NDC Code:[address]-30) severe pain Drug Aller gy Active ENCOUNTERS from 1989 to 2021-03-11 Encounter Location Date Provider Diagnosis [facility] Dermatology [address] [place] [address] [place] [address] 12 Feb, 2021 Letty Kent Acne vulgaris L70.0 ; [place] sm of uncertain behavior of skin D48.5 and 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 IMMUNIZATIONS Vaccine Route Administration Date Status Influenza 6mo & up Fluzone Unknown Jun 22, 2017 Other s Influenza 6mo & up Fluzone Unknown August 15, 2016 Other s Influenza 6mo & up Fluzone Unknown Jun 25, 2016 Other s Influenza 6mo & up Fluzone Unknown September 11, 2014 Refus ed SOCIAL HISTORY Tobacco Use: Social History Observation Description Date Details (start date - stop date) Current Smoker Sex Assigned At : Social History Observation Description Sex Assigned At Unknown Language: Question Answer Notes Languages spoken: French Sexual Hx: Question Answer Notes Had sex in the last 12 months (vaginal, oral, or anal)? Yes LMP: N/a with Men only Alcohol Screening: Question Answer Notes Did you have a drink containing alcohol in the past year? No Points 0 Interpretation Negative Tobacco Use: Question Answer Notes Are you a: current smoker How many cigarettes a day do you smoke? 10-22 REASON FOR REFERRAL No Information VITAL SIGNS Weight 202.4 lbs Feb, Weight-kg 91.81 kg Feb, Height 65 in Feb, BMI 33.68 kg/m2 Feb, Blood pressure systolic 116 mm Hg Feb, Blood pressure diastolic 78 mm Hg Feb, MEDICATIONS Medication SIG (Take, Route, Frequency, Duration) Notes Start Da te End Date Status Doxycycline Hyclate 100 MG 1 tablet Orally Twice a day for 5 day (s) Feb, Active Spironolactone 50 MG 1 tablet Orally Once a day for 30 day(s) Feb, Active Clindamycin Phosphate 1 % 1 application Externally QAM for 30 days Active Escitalopram Oxalate 10 MG 1 tablet Orally Once a day for 30 day(s) Active PriLOSEC OTC 20 MG 1 tablet 30 minutes before m orning meal Orally Once a day for 30 day(s) Active Albuterol Sulfate 108 (90 Base) MCG/ACT 1 puff as need ed Inhalation every 4 hrs for 30 days Feb, Active Tretinoin 0.025 % 1 application in the evening to face Externally QHS for 30 days Active PROCEDURES from 1989 to 2021-03-11 Procedure Date Ordered Result Body Site Med: Derm 1% Lidocaine with Epinephrine Injection Intr adermally to marked areas 2021-02-23 N/A RESULTS No Results REASON FOR VISIT ACNE F/U MEDICAL (GENERAL) HISTORY Type Description Date Medical History Hx. of abn. pap,positive HPV Medical History Depression Surgical History R bunionectomy ([place]) 2007 Surgical History 02/2011, 10/2013 Surgical History colposcopy 2011 Surgical History tubal 10/26 Surgical History Cholesectomy 06/2015 Surgical History Exploratory surgery for abdominal pain Surgical History Removal of left fallopian tube and remov al adhesion 10/2014 Surgical History Hysterectomy 2017 Hospitalization History childbirth 2010 Hospitalization History childbirth 10/26 Goals Section No Information Health Concerns No Information MEDICAL EQUIPMENT No Information MENTAL STATUS No Information FUNCTIONAL STATUS No Information ASSESSMENTS Encounter Date Diagnosis Assessment Notes Treatment Notes Treatm ent Clinical Notes Feb, Acne vulgaris (ICD-10 - L70.0) Add spironolactone 50mg QD Spironolactone risks. Patient counseled about risks of therapy with spironolactone, including frequent urination, unsteadiness, headache, enlarged or painful breasts , irregular menstrual periods, vaginal bleeding in post- menopausal women, hyperkalemia. Patient does not have any underlying kidney disorders. Patient was informed that spironolactone is category C and has the potential for adversely affecting sex differentiation of the male during embryogenesis. 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 The patient was educated on the potential risks and benefits of the procedure and gave his/her informed consent. Location of biopsy noted in the physical exam and images uploaded to the medical record. Area(s) treated with EtOH. Local anesthesia performed with <1mL of 1% lidocaine with epinephrine per site. Site(s) verified with patient via timeout utilizing patient name and date of . Biopsy/Biopsies performed. Dual site-specimen cup verification performed verbally between provider and clinic staff. Hemostasis achieved with hyfrecation or aluminum chloride/styptic. Closure: secondary intent. Petrolatum and bandage applied. Wound care instruction addressed with patient by provider or clinic staff and wound care handout given. Patient tolerated the procedure well and left in stable condition. Patient reports that his/her pain was well-managed. There was no noted significant difference from baseline pain score after procedure. Patient was educated to use acetaminophen 500mg up to 4 times daily. If not sufficient, patient was educated to re-present to the dermatology clinic or, if after hours, the emergency department. Patient was informed they would be notified in 10-14 days by telephone for all malignant conditions and scheduled for definitive management. PLAN OF TREATMENT Medication Medication Name Sig Start Date Stop Date Spironolactone 50 MG 1 tablet Orally Once a day for 30 day(s) Feb, Clindamycin Phosphate 1 % 1 application Externally QAM for 30 da ys Tretinoin 0.025 % 1 application in the evening to face Externally QHS for 30 days Treatment Notes Assessment Notes Clinical Notes Acne vulgaris Add spironolactone 5 0mg QDSpironolactone risks. Patient counseled about risks of therapy with spironolactone, including frequent urination, unsteadiness, headache, enlarged or painful breasts , irregular menstrual periods, vaginal bleeding in post-menopausal women, hyperkalemia. Patient does not have any underlying kidney disorders. Patient was informed that spironolactone is category C and has the potential for adversely affecting sex differentiation of the male during embryogenesis. Neoplasm of uncertain behavior Procedure : Tangential BiopsyUniversal protocol was followed in compliance with [facility] standards. The patient was educated on the potential risks and benefitsof the procedure and gave hi s/her informed consent. Location of biopsy noted in the physical exam and images uploaded to the medical record. Area(s) treated with EtOH. Local anesthesia performed with<1mL of 1% lidocaine with epinephrine per site. Site(s) verified withpatient via timeout utilizing patient name and date of . Biopsy/Biopsiesperformed. Dual site-specimen cup verification performed verbally betweenprovider and clinic staff. Hemostasis achieved with hyfrecation or aluminumchloride/styptic.Closure: secondary intent.Petrolatum and bandage applied. Wound care instruction addressed withpatient by provider or clinic staff and wound care handout given.Patient tolerated the procedure well and left in stable condition. Patient reports that his/her pain was well-managed. There was no noted significant difference from baseline pain score after procedure. Patient was educated to useacetaminophen 500mg up to 4 times daily. If not sufficient, patient waseducated to re-present to the dermatology clinic or, if after hours, theemergency department. Patient was informed they would be notified in 10-14 daysby telephone for all malignant conditions and scheduled for definitivemanagement. Next Appt Details 3 Months Reason:acne f/u Provider Name:Letty Kent, 2021-05-31 01:00:00 PM, [address] [facility], , [place], [address], Follow Up:3 Monthsacne f/u Insurance Providers Payer Name Payer Address Payer Phone Insured Name Patient Relati onship to Insured Coverage Start Date Coverage End Date [place] [phone] [facility][1] [place] [phone] [employer] FU
--- OUTSIDE RECORDS SUMMARY | 2021-03-21 09:14 | CCD ---
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 Document(s) ID Date Data Source [id number] 03/17/2021 11:11:00 AM EDT [facility] 1 Clinical Report - Physicians/Mid Levels [facility] Emergency Department [address] [place] [address] Phone #: ext- [phone] 03/17/2021 11:08 [id number] Sex[facility] F : 1990 Age: 30y Time Seen: 11:20 03/17/2021. Arrived- By private vehicle. Historian- patient.HISTORY OF PRESENT ILLNESS Chief Complaint: Injury to CHEST. Location of injuries- chest. The injury occurred last night. The patient sustained a blow. Fell: ( Pt states she was wrestling with her friend and she flipped over and her friend landed on her causing an injury to the right ribs). Occurred at home. The patient complains of moderate pain. No blow to the head, neck pain, loss of consciousness or seizure. Not dazed.REVIEW OF SYSTEMSThe patient has had a hysterectomy. No numbness, hearing loss, headache, depression or difficultybreathing. No nausea, bladder dysfunction, laceration or vomiting. She complains of moderateright-sided chest pain, currently moderate. Has not recently been ill.SOCIAL HISTORYLight tobacco smoker (cigarette)- less than 1/2 a pack per day. No alcohol use or drug use.PHYSICAL EXAMVital Signs: 03/17/2021 11:14 BP: 136/84. MAP: 101. HR: 82. RR: 16. O2 saturation: 97%. Temp: 98.2 F.Pain level now: 07/22. Have been reviewed as normal. Oxygen saturation normal.Appearance: Alert. Oriented X3. No acute distress.Head: Head non- tender.Eyes: Pupils equal, round and reactive to light. EOM intact.ENT: No dental injury. Pharynx normal.Neck: Painless ROM. Non-tender.CVS: Heart sounds normal. Pulses normal.Respiratory: Chest wall injury: moderate tenderness located in the right and central chest and area of thecostal cartilage. Breath sounds normal.Abdomen: No visible injury. Nontender.Back: No tenderness.Skin: Skin intact. Skin warm and dry. Normal skin color. Normal skin turgor.Extremities: Normal inspection. Pelvis stable. Extremities atraumatic. No lower extremity edema.Neuro: Oriented X 3.LABS, X-RAYS, AND EKGSternum / Ribs X-rays: No fracture present. Views: PA and lateral of sternum and right ribs. PA andlateral of chest. The X-rays were interpreted by the radiologist and contemporaneously by me.Laboratory Tests: Laboratory tests have been ordered, with results reviewed and considered in the 2 Clinical Report - Physicians/Mid Levels [facility] Emergency Department [address] [place] [address] Phone #: ext- [phone] 03/17/2021 11:08 Patient: TRAVIS MARTINEZ Sex: F : 1990 Age: 30ymedical decision making process.Ribs W/PA CXR Right: (YESSY: 03/17/2021 11:32) ( MsgRcvd 03/17/2021 12:20) In Progress Exam RIBS JOHN W/PA CXR RT [place] [place] [address] PHONE: [phone] FAX: [phone] Name .................. : TANK Durbin Acct Number.................. : [id number] ROOM. ................. : VT-02 MR Number ................... : [id number] Stay type ............. : E/R Discharge Date......... ... : Admit Date ......... : 03/17/21 Admit Phys .................... : RICHI GUTIERREZ Date of ....... : 1990 Family Phys ................... : NO PCP Phone .................. : [phone] Age ................................ : 30 Film# .................. .:[id number] Sex ................................. : F Unsigned transcriptions are preliminary reports and do not represent a medical or legal document RIBS JOHN W/PA CXR RT [id number] COMPLETE:03/17/21 11:32 52944 Reason(s): Fall Trauma/Injury PA CHEST AND 3 VIEWS OF THE RIGHT RIBS INDICATION: Patient reports that somebody fell on her. She landed flat on her back and has pain under the right breast. COMPARISON: None FINDINGS: Chest: Mediastinal and hilar structures are normal. Cardiac silhouette is unremarkable. Lungs are clear. No pulmonary edema. No pleural effusions or pneumothorax. Ribs: No rib fracture or other rib lesion. IMPRESSION: Chest: Negative exam. Ribs: Negative exam. Electronically Reviewed and Signed By DCTNAME , SIGNDATE, VITA Transcribe Initials: GIOVANI, Transcribe Date: 03/17/21 12:19, Dictation Date: <<REPDIST>> Page 1of 1 3 Clinical Report - Physicians/Mid Levels [facility] Emergency Department [address] [place] [address] Phone #: ext- [phone] 03/17/2021 11:08 Patient: TRAVIS MARTINEZ Sex: F : 1990 Age: 30y.PROGRESS AND PROCEDURESCourse of Care: 12:27 Mar 17 2021. Evaluation after observation. (Discussed x-ray and exam findingsand pt is agreeable with dx and tx plan.). Patient counseled in person regarding the patient's stable condition, test results, diagnosis and need for follow-up. Patient agrees with plan of care. 12:28 Mar 17 2021. Disposition: Discharged home in good and improved condition (12:28 Mar 17 2021).CLINICAL IMPRESSION Multiple contusions to the right anterior chest.INSTRUCTIONS Warnings: GENERAL WARNINGS: Return or contact your physician immediately if your condition worsens or changes unexpectedly, if not improving as expected, or if other problems arise. SPECIFICALLY, return if there is no improvement in the pain. Prescription Medications: Medrol (Florencio) 4 mg tablets in a dose pack Take 1 tablet as directed for 6 days -- Dispense 21 tablet. Refills: 0. Substitution permitted. Pharmacy - [facility] [address] ; [place] [address]. . ibuprofen 600 mg tablet Take 1 tablet every eight hours as needed for pain for 10 days -- for pain. Dispense 30 tablet. Refills: 0. Substitution permitted. Pharmacy - [facility] [address] ; [place] [address]. Phone: . methocarbamol 500 mg tablet Take 1 tablet three times a day for 10 days -- Dispense 30 tablet. Refills: 0. Substitution permitted. Pharmacy - [facility] [address] ; [place] [address]. . Follow-up: Follow up with your doctor as needed. Reason for referral: evaluation and treatment. Summary of care provided to patient. 4 Clinical Report - Physicians/Mid Levels [facility] Emergency Department [address] [place] [address] Phone #: ext- [phone] 03/17/2021 11:08 Patient: TRAVIS MARTNIEZ Sex: F : 1990 Age: 30y Understanding of the discharge instructions verbalized by patient.(Electronically signed by LINDSEY Irby 03/17/2021 21:44) Name Value Range Interpretation Code Description Data Concha rce(s) Supporting Document(s) ID Date Data Source [id number] 03/17/2021 01:57:00 [place] [address] PHONE: [phone] FAX: [phone] Name .................. : CHAISTEWART Durbin Acct Number.................. : [id number] ROOM. ................. : VT MR Number ................... : [id number] Stay type ............. : E/R Discharge Date......... ... : Admit Date ......... : 03/17/21 Admit Phys .................... : TURRIN BRENDA Date of ....... : 1990 Family Phys ................... : NO PCP Phone .................. : [phone] Age ................................ : 30 Film# .................. .:[id number] Sex ................................. : F Unsigned transcriptions are preliminary reports and do not represent a medical or legal document RIBS UNILAT W/PA CXR RT [id number] COMPLETE:03/17/21 11:32 [id number] Reason(s): Fall PA CHEST AND 3 VIEWS OF THE RIGHT RIBS INDICATION: Patient reports that somebody fell on her. She landed flat on her back and has pain under the right breast. COMPARISON: None FINDINGS: Chest: Mediastinal and hilar structures are normal. Cardiac silhouette is unremarkable. Lungs are clear. No pulmonary edema. No pleural effusions or pneumothorax. Ribs: No rib fracture or other rib lesion. IMPRESSION: Chest: Negative exam. Ribs: Negative exam. Electronically Reviewed and Signed By Sheryl Rios MD , 03/17/21 13:57, JWS Transcribe Initials: SSR, Transcribe Date: 03/17/21 12:19, Dictation Date: Copy for: JHONY DIAZ via fax Copy for: EMERGENCY DEPT via modem Copy for: [address] 1 [address] 2 [facility] [address] [place] [address] PHONE: [phone] FAX: [phone] Name .................. : TANK Durbin Acct Number.................. : [id number] ROOM. ................. : MR Number ................... : [id number] Stay type ............. : E/R Discharge Date......... ... : Admit Date ......... : 03/17/21 Admit Phys .................... : RICHI BRENDA Date of ....... : 1990 Family Phys ................... : NO PCP Phone .................. : [phone] Age ................................ : 30 Film# .................. .[id number] Sex ................................. : F Unsigned transcriptions are preliminary reports and do not represent a medical or legal document DIANDRA Novak/LINDSEY CXR RT [id number] COMPLETE:03/17/21 11:32 42697 Reason(s): Fall DISCHARGED Page 2 of 2 Name Value Range Interpretation Code Description Data Concha rce(s) Supporting Document(s) ID Date Data Source [id number] 02/09/2021 02:06:00 PM EDT [facility] Name Value Range Interpretation Code Description Data Concha rce(s) Supporting Document(s) SARS COVID ANTIGEN NEGATIVE [facility] This lab was ordered by [facility]KR[facility] CORONEL a nd reported by [facility]. ID Date Data Source [id number] 02/09/2021 02:02:00 PM EDT [facility] Name Value Range Interpretation Code Description Data Concha rce(s) Supporting Document(s) SARS coronavirus 2 RNA [Presence] in Res piratory specimen by ALVARADO with probe detection NEGATIVE [facility] This lab was ordered by [facility] a nd reported by [facility]. ID Date Data Source [id number] 05/26/2020 12:42:00 PM EST [facility] ([facility]) Name Value Range Interpretation Code Description Data Concha rce(s) Supporting Document(s) Magnesium Level 2.0 [facility] ([facility]) Troponin 0.02 [facility] ([facility]) Thyroid Stimulating Hormone 1.940 [facility] ([facility]) Free T4 0.97 [facility] Phosphorus 3.2 [facility] ([facility]) ID Date Data Source [id number] 05/26/2020 12:42:00 PM EST [facility] ([facility]) Name Value Range Interpretation Code Description Data Concha rce(s) Supporting Document(s) Calcium [Mass/volume] in Serum or Plasma 8.8 [facility] ([facility]) Sodium 138 [facility] ([facility]) Chloride [Moles/volume] in Serum or Plasma 105 [facility] ([facility]) Carbon dioxide, total [Moles/volume] in Serum or Plasma 26 [facility] ([facility]) Glucose 116 70-100 [facility] ([facility]) Potassium [Moles/volume] in Serum or Plasma 3.7 [facility] ([facility]) Blood Urea Nitrogen 14 5-21 [facility] ([facility]) Creatinine 1.00 0.6-1.5 [facility] ([facility]) Glomerular filtration rate/1.73 sq M.pre dicted [Volume Rate/Area] in Serum or Plasma by Creatinine-based formula (MDRD) 60.0 [facility] ([facility]) ID Date Data Source [id number] 05/26/2020 12:42:00 PM EST [facility] [place] Name Value Range Interpretation Code Description Data Concha rce(s) Supporting Document(s) Aspartate aminotransferase [Enzymatic activity/volume] in Serum or Plasma 19 [facility] ([facility]) Alkaline phosphatase [Enzymatic activity/volume] in Serum or Plasma 9 0 [facility] ([facility]) Alanine aminotransferase [Enzymatic activity/volume] in Serum or Pl asma 43 [facility] ([facility]) Bilirubin.total [Mass/volume] in Serum or Plasma 0.2 [facility] ([facility]) Bilirubin.direct [Mass/volume] in Serum or Plasma 0.1 [facility] ([facility]) Protein [Mass/volume] in Serum or Plasma 7.3 [facility] ([facility]) Albumin [Mass/volume] in Serum or Plasma 4.3 [facility] ([facility]) Cholesterol [Mass/volume] in Serum or Plasma Laboratory test result [facility] ([facility]) ID Date Data Source [id number] 05/26/2020 12:42:00 PM EST [facility] [place] Name Value Range Interpretation Code Description Data Concha rce(s) Supporting Document(s) Creatine kinase [Enzymatic activity/volume] in Serum or Plasma 58 41-270 [facility] ([facility]) CPK-MB 1.0 [facility] ([facility]) MB/CK Relative 1.72 [facility] ([facility]) ID Date Data Source [id number] 05/26/2020 12:42:00 PM EST [facility] [place] Name Value Range Interpretation Code Description Data Concha rce(s) Supporting Document(s) White Blood Count 11.0 4.3-10.9 [facility] ([facility]) Red Blood Count 4.66 4.70-6.20 [facility] ([facility]) Platelets 348 130-400 [facility]) Hemoglobin 14.0 13.0-17.0 [facility] ([facility]) Hematocrit 43.9 39.0-50.0 [facility] ([facility]) ID Date Data Source [id number] 05/14/2020 12:00:00 AM EST [facility] Name Value Range Interpretation Code Description Data Concha rce(s) Supporting Document(s) Carestart Rapid COVID Antigen Test [facility] This lab was reported by Desean daniels. Procedure Social History Code Duration Value Status Description Data Source(s ) Smoking 02/23/2021 12:00:00 AM EDT Current Smoker completed Curre nt Smoker eCW1 ([facility]) Smoking 02/04/2021 12:00:00 AM EDT Current Smoker completed Curre nt Smoker eCW1 ([facility]) Smoking 11/30/2020 12:00:00 AM EDT Current Smoker completed Curre nt Smoker eCW1 ([facility]) Smoking 11/30/2020 12:00:00 AM EDT Current Smoker completed Curre nt Smoker eCW1 ([facility]) Smoking 10/06/2020 12:00:00 AM EDT Current Smoker completed Curre nt Smoker eCW1 ([facility]) Smoking 10/06/2020 12:00:00 AM EDT Current Smoker completed Curre nt Smoker eCW1 ([facility]) Smoking 10/06/2020 12:00:00 AM EDT Current Smoker completed Curre nt Smoker eCW1 ([facility]) Smoking 08/06/2020 12:00:00 AM EDT Current Smoker completed Curre nt Smoker eCW1 ([facility]) Smoking 07/08/2020 12:00:00 AM EST Current Smoker completed Curre nt Smoker eCW1 ([facility]) Vital Signs ID Date Data Source [id number] Name Value Range Interpretation Code Description Data Source(s) Body weight 202.4 [lb_av] 202.4 [lb_av] eCW1 ([facility]) Body weight 91.81 kg 91.81 kg eCW1 ([facility]) Body height 65 [in_i] 65 [in_i] eCW1 ([facility]) Body mass index (BMI) [Ratio] 33.68 kg/m2 33.68 kg/m2 eCW1 ([facility]) Systolic blood pressure 116 mm[Hg] 116 mm[Hg] e CW1 ([facility]) Diastolic blood pressure 78 mm[Hg] 78 mm[Hg] eCW1 ([facility]) Body weight 207.2 [lb_av] 207.2 [lb_av] eCW1 ([facility]) Body weight 93.99 kg 93.99 kg eCW1 ([facility]) Body height 65 [in_i] 65 [in_i] eCW1 ([facility]) Body mass index (BMI) [Ratio] 34.48 kg/m2 34.48 kg/m2 eCW1 ([facility]) Heart rate 109 /min 109 /min eCW1 ([facility]) Respiratory rate 18 /min 18 /min eCW1 ([facility]) Body temperature 98.2 [degF] 98.2 [degF] eCW1 ( [facility]) Systolic blood pressure 118 mm[Hg] 118 mm[Hg] e CW1 ([facility]) Diastolic blood pressure 80 mm[Hg] 80 mm[Hg] eCW1 ([facility]) Body weight 211 [lb_av] 211 [lb_av] eCW1 ([facility]) Body height 65 [in_i] 65 [in_i] eCW1 ([facility]) Body mass index (BMI) [Ratio] 35.11 kg/m2 35.11 kg/m2 eCW1 ([facility]) Systolic blood pressure 122 mm[Hg] 122 mm[Hg] e CW1 ([facility]) Diastolic blood pressure 74 mm[Hg] 74 mm[Hg] eCW1 ([facility]) Body weight 206 [lb_av] 206 [lb_av] eCW1 ([facility]) Body height 65 [in_i] 65 [in_i] eCW1 ([facility]) Body mass index (BMI) [Ratio] 34.28 kg/m2 34.28 kg/m2 eCW1 ([facility]) Systolic blood pressure 122 mm[Hg] 122 mm[Hg] e CW1 ([facility]) Diastolic blood pressure 76 mm[Hg] 76 mm[Hg] eCW1 ([facility]) Body weight 202 [lb_av] 202 [lb_av] eCW1 ([facility]) Body height 65 [in_i] 65 [in_i] eCW1 ([facility]) Body mass index (BMI) [Ratio] 33.61 kg/m2 33.61 kg/m2 eCW1 ([facility]) Heart rate 82 /min 82 /min eCW1 ([facility]) Respiratory rate 18 /min 18 /min eCW1 ([facility]) Body temperature 99.9 [degF] 99.9 [degF] eCW1 ( [facility]) Systolic blood pressure 128 mm[Hg] 128 mm[Hg] e CW1 ([facility]) Diastolic blood pressure 74 mm[Hg] 74 mm[Hg] eCW1 ([facility]) Body height 66 [in_i] 66 [in_i] [facility] ([facility]) 5'6" Body mass index (BMI) [Ratio] 33.2 kg/m2 33.2 k g/m2 [facility] ([facility]) Heart rate 78 /min 78 /min [facility] ([facility]) regular Systolic blood pressure--sitting 122 mm[Hg] 122 mm[Hg] [facility] ([facility]) Medium cuff, Ra; 126/74 LA Diastolic blood pressure--sitting 72 mm[Hg] 72 mm[Hg] [facility] ([facility]) Medium cuff, Ra; 126/74 LA Systolic blood pressure--supine 115 mm[Hg] 115 mm[Hg] [facility] ([facility]) Ra Diastolic blood pressure--supine 64 mm[Hg] 64 mm[Hg] [facility] ([facility]) Ra Body weight 206.00 [lb_av] 206.00 [lb_av] MEDEN T ([facility]) Respiratory rate 16 /min 16 /min [facility] ( [facility]) Body weight 201 [lb_av] 201 [lb_av] eCW1 ([facility]) Body height 65 [in_i] 65 [in_i] eCW1 ([facility]) Body mass index (BMI) [Ratio] 33.44 kg/m2 33.44 kg/m2 eCW1 ([facility]) Heart rate 76 /min 76 /min eCW1 ([facility]) Respiratory rate 18 /min 18 /min eCW1 ([facility]) Body temperature 97.8 [degF] 97.8 [degF] eCW1 ( [facility]) Systolic blood pressure 112 mm[Hg] 112 mm[Hg] e CW1 ([facility]) Diastolic blood pressure 64 mm[Hg] 64 mm[Hg] eCW1 ([facility]) Patient Treatment Plan of Care Planned Activity Planned Date Details Description Data Source (s) Spironolactone 50 MG Oral Tablet 02/23/2021 12:00:00 AM EDT eCW1 ([facility]) Tretinoin 0.25 MG/ML Topical Cream 10/06/2020 12:00:00 AM EDT eCW1 ([facility]) Clindamycin 10 MG/ML Topical Lotion 10/06/2020 12:00:00 AM EDT eCW1 ([facility]) Tretinoin 0.25 MG/ML Topical Cream 10/06/2020 12:00:00 AM EDT eCW1 ([facility]) Clindamycin 10 MG/ML Topical Lotion 10/06/2020 12:00:00 AM EDT eCW1 ([facility]) Tretinoin 0.25 MG/ML Topical Cream 10/06/2020 12:00:00 AM EDT eCW1 ([facility]) Clindamycin 10 MG/ML Topical Lotion 10/06/2020 12:00:00 AM EDT eCW1 ([facility]) Escitalopram 10 MG Oral Tablet 07/08/2020 12:00:00 AM EST eCW1 ([facility])
--- OUTSIDE RECORDS SUMMARY | 2021-03-21 09:14 | CCD ---
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 Name Role Phone Akuaerika Fidelia Unavailable PROBLEMS Type Condition ICD9-CM Code [id number] Code Onset Dates Condition S tatus W/U Status Risk SNOMED Code Notes Problem Constipation, unspecified constipation type K59.00 Active confirmed 05566711 Problem Acne vulgaris L70.0 Active confirmed 345184 00 Problem Incidental lung nodule R91.1 Active confirmed 366379524 Problem Moderate episode of recurrent major depressive disorder F33.1 Active confirmed 547026065 Problem JUDE (generalized anxiety disorder) F41.1 Activ e confirmed 66786046 ALLERGIES Allergen (clinical drug ingredient) Drug/Non Drug Allergy do cumented on EMR Reaction Allergy Type Onset Date Status morphine Morphine Sulfate(NDC Code:[address]-83) severe pain Drug Allergy Active amoxicillin Amoxicillin(NDC Code:[address]-83) bad yeast in fection Drug Allergy Active hydromorphone Dilaudid(NDC Code:[address]-55) severe pain Drug Aller gy Active ENCOUNTERS from 1989 to 2021-01-29 Encounter Location Date Provider Diagnosis [place] [id number] [facility] [phone] [place] [address] 14 Jan, 2021 Fidelia Fatimakatiealvarado IMMUNIZATIONS Vaccine Route Administration Date Status Influenza [...] Unknown Language: Question Answer Notes Languages spoken: Portuguese Sexual Hx: Question Answer Notes Had sex [...] REASON FOR REFERRAL No Information VITAL SIGNS No information MEDICATIONS Medication SIG (Take, Route, Frequency, Duration) Notes Start Da te End Date Status Tretinoin 0.025 % 1 application in the evening to face Externally QHS for 30 days Active PriLOSEC OTC 20 MG 1 tablet 30 minutes before m orning meal Orally Once a day for 30 day(s) Active Clindamycin Phosphate 1 % 1 application Externally QAM for 30 days Active Escitalopram Oxalate 10 MG 1 tablet Orally Once a day for 30 day(s) Active PROCEDURES No Information RESULTS No Results REASON FOR VISIT abd. pain/ N/V blood in stool MEDICAL (GENERAL) HISTORY Type Description Date Medical [...] No Information FUNCTIONAL STATUS No Information ASSESSMENTS No Information PLAN OF TREATMENT Medication Medication Name Sig Start Date Stop Date Tretinoin 0.025 % 1 application in the evening to face Externally QHS for 30 days Clindamycin Phosphate 1 % 1 application Externally QAM for 30 da ys Next Appt Details Provider Name:Alejo Galvin 02-02 09:30:00 AM, [address] , , [place], [address], Provider Name:Letty Kent 2021-02-23 11:30:00 AM, [address] [facility], , [place], [address], Insurance Providers Payer Name Payer Address Payer Phone Insured Name Patient Relati onship to Insured Coverage Start Date Coverage End Date [place] [phone] [place] [phone] VIDYA FU
--- OUTSIDE RECORDS SUMMARY | 2021-03-21 09:14 | CCD ---
Author Author [facility] Organization [facility] Address Unknown Phone Unavailable Care Team Providers Care Product Safety Compliance Leader Name Role Phone Alejo Galvin Unavailable PROBLEMS Type Condition ICD9-CM Code [id number] Code Onset Dates Condition S tatus W/U Status Risk SNOMED Code Notes Problem Constipation, unspecified constipation type K59.00 Active confirmed 01724192 Problem Acne vulgaris L70.0 Active confirmed 383110 00 Problem Incidental lung nodule R91.1 Active confirmed 003197911 Problem Moderate episode of recurrent major depressive disorder F33.1 Active confirmed 146801343 Problem JUDE (generalized anxiety disorder) F41.1 Activ e confirmed 44621995 ALLERGIES Allergen (clinical drug ingredient) Drug/Non Drug Allergy do cumented on EMR Reaction Allergy Type Onset Date Status morphine Morphine Sulfate(NDC Code:[address]-06) severe pain Drug Allergy Active amoxicillin Amoxicillin(NDC Code:[address]-36) bad yeast in fection Drug Allergy Active hydromorphone Dilaudid(NDC Code:[address]-97) severe pain Drug Aller gy Active ENCOUNTERS from 1989 to 2021-02-05 Encounter Location Date Provider Diagnosis [facility] Resident [address] [phone] [place] [address] 23 Jan, 2021 Alejoflory Galvin Acute intractable he adache, unspecified headache type R51.9 and Intractable vomiting with nausea, unspecified vomiting type R11.2 IMMUNIZATIONS Vaccine Route Administration Date Status Influenza [...] Unknown Language: Question Answer Notes Languages spoken: Nigerian Sexual Hx: Question Answer Notes Had sex [...] FOR REFERRAL No Information VITAL SIGNS Weight 207.2 lbs Jan, Weight-kg 93.99 kg Jan, Height 65 in Jan, BMI 34.48 kg/m2 Jan, Heart Rate 109 /min Jan, Respiratory Rate 18 /min Jan, Temperature 98.2 degrees Fahrenheit Jan, Oximetry 98 Jan, Blood pressure systolic 118 mm Hg Jan, Blood pressure diastolic 80 mm Hg Jan, MEDICATIONS Medication SIG (Take, Route, Frequency, Duration) Notes Start Da te End Date Status PriLOSEC OTC 20 MG 1 tablet 30 minutes before m orning meal Orally Once a day for 30 day(s) Active Tretinoin 0.025 % 1 application in the evening to face Externally QHS for 30 days Active Escitalopram Oxalate 10 MG 1 tablet Orally Once a day for 30 day(s) Active Clindamycin Phosphate 1 % 1 application Externally QAM for 30 days Active PROCEDURES No Information RESULTS No Results REASON FOR VISIT abd. pain/ N/V blood in stool (te in chart on this) MEDICAL (GENERAL) HISTORY Type Description Date Medical [...] Notes Treatment Notes Treatm ent Clinical Notes Jan, Acute intractable headache, unspecified headache type (ICD-10 - R51.9) Patient's headache is likely due to decreased oral intake. Patient was advised to continue to hydrate at this time. Patient was also advised to keep a diary of her headaches and if they persist to present back to PCP for work-up once other acute medical complaints have resolved. Jan, Intractable vomiting with na usea, unspecified vomiting type (ICD-10 - R11.2) Patient reports a 2-week history of vomiting. Due to nonspecific symptoms and overall improvement as patient is able to now tolerate oral intake, the following lab work-up has been ordered: Amylase and lipase (for pancreatic etiology), CBC with differential (due to left lower quadrant pain, to rule out diverticulitis), CRP (for any inflammatory bowel disorder). Patient had right lower quadrant tenderness but no right lower quadrant pain prior to examination in office. Pt was counseled on reporting immediately to ER if she develops RLQ pain without palpation. Patient was also counseled to seek immediate medical care if she developed any fevers, chills, and/or worsening of nausea and vomiting. Patient verbalized understanding. Abdominal KUB has also been ordered to rule out any early obstructive process due to significant history of multiple surgeries in the past including history of surgical ligation of adhesions. Patient reports that she is passing gas and having bowel movements therefore obstructive process is low on the differential at this time. Patient was counseled to monitor bowel movements and to report immediately to medical care if she was unable to pass gas, and/or was unable to have bowel movements. Patient verbalized understanding. PLAN OF TREATMENT Treatment Notes Assessment Notes Clinical Notes Acute intractable headache, unspecified headache type Patient's headache is likely due to decreased oral intake. Patient was advised to continue to hydrate at this time. Patient was also advised to keep a diary of her headaches and if they persist to present back to PCP for work-up once other acute medical complaints have resolved. Intractable vomiting with nausea, unspecified vomiting type Patient reports a 2-week history of vomiting. Due to nonspecific symptoms and overall improvement as patient is able to now tolerate oral intake, the following lab work-up has been ordered: Amylase and lipase (for pancreatic etiology), CBC with differential (due to left lower quadrant pain, to rule out diverticulitis), CRP (for any inflammatory bowel disorder). Patient had right lower quadrant tende rness but no right lower quadrant pain prior to examination in office. Pt was counseled on reporting immediately to ER if she develops RLQ pain without palpation. Patient was also counseled to seek immediate medical care if she developed any fevers, chills, and/or worsening of nausea and vomiting. Patient verbalized understanding. Abdominal KUB has also been ordered to rule out any early obstructive process due to significant history of multiple surgeries in the past including history of surgical ligation of adhesions. Patient reports that she is passing gas and having bowel movements therefore obstructive process is low on the differential at this time. Patient was counseled to monitor bowel movements and to report immediately to medical care if she was unable to pass gas, and/or was unable to have bowel movements. Patient verbalized understanding. Treatment Notes Test Name Order Date AMYLASE 2021-02-04 CBC with Differential 2021-02-04 Comprehensive Metabolic Profile (CMP) 2021-02-04 C REACTIVE PROTEIN QUANTITATIV (At [facility]) 2021-02-04 LIPASE 2021-02-04 Abdomen, Flat Plate (KUB) [facility] or [facility] 2021-02-04 Next Appt Details 2 Weeks Reason:Please followup with PCP to assess for improvement of symptoms and for headaches. I am also willing to see patient if schedule allows. Provider Name:Fidelia Quinonez, 2020-0508 03:15:00 PM, [address] [facility], , [place], [address], Provider Name:Letty Kent, 2021-02-23 11:30:00 AM, [address], , [place], [place], [facility], Follow Up:2 WeeksPlease followup with PCP to assess for improvement of symptoms and for headaches. I am also willing to see patient if schedule allows. Insurance Providers Payer Name Payer Address Payer Phone Insured Name Patient Relati onship to Insured Coverage Start Date Coverage End Date [place] [phone] [place] [phone] VIDYA FU
[2021-03-21] MEDS ORDERED: acne med PO (09:27)
--- OUTSIDE RECORDS SUMMARY | 2021-03-21 09:42 | CCD ---
Author Author [facility] Organization [facility] Address Unknown Phone Unavailable Care Team Providers Care Supervisory It Specialist Name Role Phone NO, PCP Unavailable Unavailable [...] is protected by Article 27-F of the [facility] Public Health law. If you continue you may have access to information: Regarding HIV / AIDS; Provided by facilities licensed or operated by the [facility] Office of Mental Health; or Provided by the [facility] Office for People With Developmental Disabilities. If such information is present, then the following [facility] mandated warning applies: This information has [...] law may result in a fine or mcc sentence or both. A general authorization for the release of medical or other information is NOT sufficient authorization for further disc losure. Allergies and Adverse Reactions Type Description Substance Reaction Status Data Source(s ) Drug Allergy Drug Allergy NKDA [facility] ([facility] Family History Family Member Name Family Member Gender Family Member Status Date o f Status Description Data Source(s) Unknown Male Problem [facility]ENT ([facility]) Encounters Encounter Providers Location Date Indications Data Source(s ) Emergency Attender: ROCKY Mchughltant: PCP NO 03/17/2021 11:11:00 AM EDT - 03/17/2021 12:42:00 PM EDT [facility] Patient discharged. [place] [address] [facility] [address] 02/23/2021 12:00:00 AM EDT eCW1 ([facility]) [place] [address] [facility] [place] [address] 02/04/2021 12:00:00 AM EDT eCW1 ([facility]) Unknown [address] [facility] [address] 01/26/2021 12:00:00 AM EDT eCW1 ([facility]) [place] [address] [facility] [address] 11/30/2020 12:00:00 AM EDT eCW1 ([facility]) [place] [address] [facility] [address] 10/14/2020 12:00:00 AM EDT eCW1 ([facility]) Unknown [address] [facility] [address] 10/07/2020 12:00:00 AM EDT eCW1 ([facility]) Outpatient [address] [facility] [address] 10/06/2020 12:00:00 AM EDT eCW1 ([facility]) Outpatient [address] [facility] [address] 08/06/2020 12:00:00 AM EDT eCW1 ([facility]) Outpatient Attender: SHERYL MCNAMARA MD Main Office 07/27/2020 12:45:00 PM EDT MED[facility] ([facility]) Outpatient [address] [facility] [address] 07/08/2020 12:00:00 AM EST eCW1 ([facility]) Medications Medication Brand Name Start Date Product Form Dose Route Admi nistrative Instructions Pharmacy Instructions Status Indications Reaction Description Data Source(s) Spironolactone 50 MG Oral Tablet Spironolactone 50 MG 2020 12:00:00 AM EDT 1.0 {tablet} active Spironolact one 50 MG eCW1 ([facility]) Albuterol Sulfate 108 (90 Base) MCG/ACT UNK 02/19/2021 12: 00:00 AM EDT 1.0 {puff_as_needed} active Albuterol Sulfa te 108 (90 Base) MCG/ACT eCW1 ([facility]) doxycycline hyclate 100 MG Delayed Relea se Oral Tablet Doxycycline Hyclate 100 MG Doxycycline Hyclate 100 MG 02/19/2021 12:00:00 AM EDT 1.0 {table t} active Doxycycline Hyclate 100 MG eCW1 ([facility]) Tretinoin 0.25 MG/ML Topical Cream Tretinoin 0.025 % Tretino in 0.025 % 10/06/2020 12:00:00 AM EDT active Tretinoin 0.025 % eCW1 ([facility]) Clindamycin 10 MG/ML Topical Lotion Clindamycin Phosph ate 1 % Clindamycin Phosphate 1 % 10/06/2020 12:00:00 AM EDT 1.0 {application} active Clindamycin Phosphate 1 % eCW1 ([facility]) Tretinoin 0.25 MG/ML Topical Cream Tretinoin 0.025 % Tretino in 0.025 % 10/06/2020 12:00:00 AM EDT active Tretinoin 0.025 % eCW1 ([facility]) Clindamycin 10 MG/ML Topical Lotion Clindamycin Phosph ate 1 % Clindamycin Phosphate 1 % 10/06/2020 12:00:00 AM EDT 1.0 {application} active Clindamycin Phosphate 1 % eCW1 ([facility]) Tretinoin 0.25 MG/ML Topical Cream Tretinoin 0.025 % Tretino in 0.025 % 10/06/2020 12:00:00 AM EDT active Tretinoin 0.025 % eCW1 ([facility]) Clindamycin 10 MG/ML Topical Lotion Clindamycin Phosph ate 1 % Clindamycin Phosphate 1 % 10/06/2020 12:00:00 AM EDT 1.0 {application} active Clindamycin Phosphate 1 % eCW1 ([facility]) Escitalopram 10 MG Oral Tablet Escitalopram Oxalate 07/09/2020 1 2:00:00 AM EST ORAL active MEDENT ( [facility]) Escitalopram 10 MG Oral Tablet Escitalopram Oxalate 10 MG Escitalopram Oxalate 10 MG 07/08/2020 12:00:00 AM EST active Escitalopram Oxalate 10 MG eCW1 ([facility]) Insurance Providers Payer name Policy type / Coverage type Policy ID Covered republican ID Covered republican's relationship to woodard Policy Woodard Plan Information [facility] 302/[phone] [id number] [facility] [id number] [facility] 101/600 [id number] [id number] AVMED O [id number] O [id number] [employer] BCBS B [id number] P NRO [id number] AVMED [id number] SP [id number] [facility] [id number] SP [id number] [employer] [place] 101/600 [id number] HU2 [id number] [employer]CELL[employer] BCBS B [id number] O NRO [id number] ANSI-Commercial [id number] BLUE CROSS BLUE SHIELD -PHYSICIAN [id number] 01 [id number] Blue Cross Blue Shield CL Commercial [id number] Family Dependent N [id number] BLUE CROSS BLUE SHIELD CL BS [id number] 01 [id number] PROGRESSIVE CO NO FAULT O [id number] S [id number] PROGRESSIVE CO NO FAULT [id number] SP [id number] PROGRESSIVE CO NO FAULT [id number] S [id number] [place] [place] 101/600 [id number] SP [id number] BS [facility] Part B [id number] Family Dependent BS [facility] Commercial [id number] Family Dependent BCBS [place] 306/806 [id number] MO2 [id number] MEDICAID M [id number] S [id number] EXCELLUS BCBS B [id number] O [id number] MEDICAID [id number] SP [id number] BCBS [place] PPO 302/307 [id number] MO2 [id number] [place]BS [place] PPO 302/307 [id number] MO2 [id number] BCBS [place] 306/806 [id number] MO2 [id number] BCBS [place] PPO 302/307 [id number] MO2 [id number] EXCELLUS BCBS P [id number] S [id number] BCBS [place] 306/806 [id number] MO2 [id number] BCBS [place] 130/630 [id number] BLUE CROSS BLUE SHIELD -O/P [id number] Problems, Conditions, and Diagnoses Code Display Name Description Problem Type Effective Dates Data Source(s) L70.0 [id number] Acne vulgaris Problem 10/06/2020 12:00:00 AM EDT eCW1 ([facility]) R07.2 Precordial pain Precordial pain Problem 07/27/2020 12:0 0:00 AM EDT MEDENT ([facility]) J44.9 Chronic obstructive lung disease Chronic obstructive l yadira disease Problem 07/27/2020 12:00:00 AM EDT MEDENT ([facility]) G47.9 Disturbance in sleep behavior Disturbance in sleep beh avior Problem 07/27/2020 12:00:00 AM EDT [facility] ([facility]) R94.31 Electrocardiogram abnormal Electrocardiogram abnormal Problem 07/27/2020 12:00:00 AM EDT MEDENT ([facility]) R00.2 Palpitations Palpitations Problem 07/27/2020 12:00:00 A M EDT MEDENT ([facility]) R07.89 Chest pain Chest pain Problem 07/27/2020 12:00:00 AM ED T MEDENT ([facility]) F41.1 [id number] JUDE (generalized anxiety disorder) Proble 07/09/2020 12:00:00 AM EST eCW1 ([facility]) F33.1 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 Problem 07/08/2020 12:00:00 AM EST eCW1 ([facility]) R91.1 [id number] Incidental lung nodule Problem 07/08/2020 12 :00:00 AM EST eCW1 ([facility]) K59.00 [id number] Constipation, unspecified constipation ty pe Problem 07/08/2020 12:00:00 AM EST eCW1 ([facility]) Surgeries/Procedures Procedure Description Date Indications Data Source(s) Med: Derm 1% Lidocaine with Epinephrine Injection Intr adermally to marked areas 02/23/2021 12:00:00 AM EDT eCW1 ([facility]) CV STRS TST XERS&/OR RX CONT ECG PHYS SI&R 10/21/2020 12:00:00 AM EDT MEDENT ([facility]) ECHO TTHRC R-T 2D W/WOM-MODE COMPL SPEC&COLR DOP 09/11 12:00:00 AM EDT MEDENT ([facility]) ECG ROUTINE ECG W/LEAST 12 LDS W/I&R 07/27/2020 12:00: 00 AM EDT MEDENT ([facility]) XTRNL ECG < 48 HR RECORDING 07/08/2020 12:00:00 AM EST MEDENT ([facility]) XTRNL ECG CONTINUOUS RHYTHM PHYS REVIEW&INTERPJ 2020 12:00:00 AM EST MEDENT ([facility]) Results ID Date Data Source [id number] 03/17/2021 11:11:00 AM EDT [facility] 1 OrderSheet [facility] Emergency Department [address] [place] [address] Phone #: ext- [phone] 03/17/2021 11:08 Patient: TRAVIS MARTINEZ Sex: F [...] rce(s) Supporting Document(s) ID Date Data Source [id number] 03/17/2021 11:11:00 AM EDT [facility] 1 Medication Reconciliation Report [facility] Emergency Department [address] [place] [address] Phone #: ext- [phone] 03/17/2021 11:08 Patient: [...] Dispense 21 tablet.Refills: 0. Substitution permitted.Pharmacy - [facility] [address] ; [place] [address]. .ibuprofen 600 mg tablet Take 1 tablet every eight hours as needed for pain for 10 days -- for pain.Dispense 30 tablet. Refills: 0. Substitution permitted.Pharmacy - [facility] [address] ; [place] [address]. Phone: .methocarbamol 500 mg tablet Take 1 tablet three times a day for 10 days -- Dispense 30 tablet. Refills:0. Substitution permitted.Pharmacy - [facility] [address] ; [place] [address]. . -- LINDSEY Irby Name Value Range Interpretation Code Description Data Concha rce(s) Supporting Document(s) ID Date Data Source [id number] 03/17/2021 11:11:00 AM EDT [facility] 1 Medication Administration Record [facility] Emergency Department [address] [place] [address] Phone #: ext- [phone] 03/17/2021 11:08 Patient: TRAVIS MARTINEZ Sex: F : 1990 Age: 30yWeight: 83.9 kgHeight/Length: 66 inBMI: 29.9ALLERGIES: Dilaudid, Morphine Sulfate Date/Time Medication Administered Medication OrderedGiven TORADOL [IM] (KETOROLAC Toradol IM 60 mg11:38 03/17/2021 TROMETHAMINE)Tyrell Hassan, Dose: 60 mg IM Name Value Range Interpretation Code Description Data Concha rce(s) Supporting Document(s) ID Date Data Source [id number] 03/17/2021 11:11:00 AM EDT [facility] 1 General Instructions [facility] Emergency Department [address] [place] [address] Phone #: ext- [phone] 03/17/2021 11:08 Patient: [...] days -- Dispense 21 tablet.Refills: 0. Substitution permitted.[facility] [address] ; [place] [address]. .ibuprofen 600 mg tablet Take 1 tablet every eight hours as needed for pain for 10 days -- for pain.Dispense 30 tablet. Refills: 0. Substitution permitted.[facility] [address] ; [place] [address]. Phone: .methocarbamol 500 mg tablet Take 1 tablet three times a day for 10 days -- Dispense 30 tablet. Refills:0. Substitution permitted.[facility] [address] ; [place] [address]. .Follow-up:Follow up with your doctor as needed. Reason for referral: evaluation and treatment. Summary of careprovided to patient.Understanding of the discharge instructions verbalized by patient. ADDITIONAL INFORMATIONChest Bruise (Contusion) 2 General Instructions [facility] Emergency Department [address] [place] [address] Phone #: ext- [phone] 03/17/2021 11:08 Patient: [...] will help ease pain. 3 General Instructions [facility] Emergency Department [address] [place] [address] Phone #: ext- [phone] 03/17/2021 11:08 Patient: TRAVIS MARTINEZ Sex: F : 1990 Age: 30y You may use kmgu-sco-hoifmhf pain medicine such as acetaminophen or ibuprofen [...] suddenly or lasts more than an hour [id number] [place] [address], [place] [address]. All rights reserved. This information is not intended as asubstitute for professional medical care. Always follow your healthcare professional's instructions. 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 (0600).SEPSIS SCREEN: SIRS SCREEN NEGATIVE. SEPSIS [...] to Coronavirus. 2 Clinical Report - Nurses [facility] Emergency Department [address] [place] [address] Phone #: ext- [phone] 03/17/2021 11:08 Patient: [...] physician and 3 Clinical Report - Nurses [facility] Emergency Department [address] [place] [address] Phone #: ext- [phone] 03/17/2021 11:08 Patient: [...] Patient verbalized understanding. Written instructions provided in Chilean. The patient was discharged home. She left ambulatory and via private vehicle. Patient driving. --12:42 03/17/21 Katarzyna De La Cruz RN.Locked/Released at 03/17/2021 12:44 by Katarzyna De La Cruz RN Name Value Range Interpretation Code Description Data Concha rce(s) Supporting Document(s) ID Date Data Source [id number] 03/17/2021 11:11:00 AM EDT [facility] 1 Clinical Report - Physicians/Mid Levels [facility] Emergency Department [address] [place] [address] Phone #: ext- [phone] 03/17/2021 11:08 [id number] Sex: F : 1990 Age: 30y Time [...] the 2 Clinical Report - Physicians/Mid Levels [facility] Emergency Department [address] [place] [address] Phone #: ext- [phone] 03/17/2021 11:08 Patient: TRAVIS MARTINEZ Sex: F : 1990 Age: 30ymedical decision making process.Ribs W/PA CXR Right: (YESSY: 03/17/2021 11:32) ( MsgRcvd 03/17/2021 12:20) In Progress Exam RIBS JOHN W/PA CXR [address] [place] [address] PHONE: [phone] FAX: [phone] Name .................. : TANK Durbin Acct Number.................. : [id number] ROOM. ................. : VT-02 MR Number ................... : [id number] Stay type ............. : E/R Discharge Date......... ... : Admit Date ......... : 03/17/21 Admit Phys .................... : RICHI GUTIERREZ Date of ....... : 1990 Family Phys ................... : NO PCP Phone .................. : [phone] Age ................................ : 30 Film# .................. .:[id number] Sex ................................. : F Unsigned transcriptions are preliminary reports and do not represent a medical or legal document RIBS JOHN W/PA CXR RT [id number] COMPLETE:03/17/21 11:32 [id number] Reason(s): Fall Trauma/Injury PA CHEST AND 3 [...] 1 3 Clinical Report - Physicians/Mid Levels [facility] Emergency Department [address] [place] [address] Phone #: ext- [phone] 03/17/2021 11:08 Patient: [...] tablet. Refills: 0. Substitution permitted. Pharmacy - [facility] [id number] ; [place] [address]. . ibuprofen 600 mg tablet Take 1 tablet every eight hours as needed for pain for 10 days -- for pain. Dispense 30 tablet. Refills: 0. Substitution permitted. Pharmacy - [facility] [address] [facility] [address] ; [place] [address]. Phone: . methocarbamol 500 mg tablet Take 1 tablet three times a day for 10 days -- Dispense 30 tablet. Refills: 0. Substitution permitted. Pharmacy - [facility] [address] [facility] [facility] ; [place] [address]. . Follow-up: Follow up with your doctor as needed. Reason for referral: evaluation and treatment. Summary of care provided to patient. 4 Clinical Report - Physicians/Mid Levels [facility] Emergency Department [address] [place] [address] Phone #: ext- [phone] 03/17/2021 11:08 Patient: TRAVIS MARTINEZ Sex: F : 1990 Age: 30y Understanding of the discharge instructions verbalized by patient.(Electronically signed by LINDSEY Irby 03/17/2021 21:44) Name Value Range Interpretation Code Description Data Concha rce(s) Supporting Document(s) ID Date Data Source [id number] 03/17/2021 01:57:00 [place] [address] PHONE: [phone] FAX: [phone] Name .................. : CHAISTEWART Durbin Acct Number.................. : [id number] ROOM. ................. : [place] MR Number ................... : [id number] Stay type ............. : E/R Discharge Date......... ... : Admit Date ......... : 03/17/21 Admit Phys .................... : TURRIN BRENDA Date of ....... : 1990 Family Phys ................... : NO PCP Phone .................. : [phone] Age ................................ : 30 Film# .................. .:[id number] Sex ................................. : F Unsigned transcriptions are preliminary reports and do not represent a medical or legal document RIBS UNILAT W/PA CXR RT [id number] COMPLETE:03/17/21 11:32 19526 Reason(s): Fall PA CHEST AND 3 VIEWS [...] 710 MED REC Page 1 of 2 [facility] [address] [place] [address] PHONE: [phone] FAX: [phone] Name .................. : TANK Durbin Acct Number.................. : [id number] ROOM. ................. : MR Number ................... : [id number] Stay type ............. : E/R Discharge Date......... ... : Admit Date ......... : 03/17/21 Admit Phys .................... : RICHI BRENDA Date of ....... : 1990 Family Phys ................... : NO PCP Phone .................. : [phone] Age ................................ : 30 Film# .................. .:[id number] Sex ................................. : F Unsigned transcriptions are preliminary reports and do not represent a medical or legal document DIANDRA Novak/LINDSEY CXR RT [id number] COMPLETE:03/17/21 11:32 [id number] Reason(s): Fall DISCHARGED Page 2 of 2 Name Value Range Interpretation Code Description Data Concha rce(s) Supporting Document(s) ID Date Data Source [id number] 02/09/2021 02:06:00 PM EDT [facility] Name Value Range Interpretation Code Description Data Concha rce(s) Supporting Document(s) SARS COVID ANTIGEN NEGATIVE [facility] This lab was ordered by [facility] a nd reported by [facility]. ID Date Data Source [id number] 02/09/2021 02:02:00 PM EDT [facility] Name Value Range Interpretation Code Description Data Concha rce(s) Supporting Document(s) SARS coronavirus 2 RNA [Presence] in Res piratory specimen by ALVARADO with probe detection NEGATIVE [facility] This lab was ordered by [facility] a nd reported by [facility]. ID Date Data Source [id number] 05/26/2020 12:42:00 PM EST [facility] Name Value Range Interpretation Code Description Data Concha rce(s) Supporting Document(s) Magnesium Level 2.0 [facility] ([facility]) Troponin 0.02 [facility] ([facility]) Thyroid Stimulating Hormone 1.940 [place] D[facility] ([facility]) Free T4 0.97 [facility] Phosphorus 3.2 MEDENT ([facility]) ID Date Data Source [id number] 05/26/2020 12:42:00 PM EST [facility] Name Value Range Interpretation Code Description Data Concha rce(s) Supporting Document(s) Calcium [Mass/volume] in Serum or Plasma 8.8 [facility] ([facility]) Sodium 138 [facility] ([facility]) Chloride [Moles/volume] in Serum or Plasma 105 [facility] ([facility]) Carbon dioxide, total [Moles/volume] in Serum or Plasma 26 [facility] ([facility]) Glucose 116 70-100 [facility] ([facility]) Potassium [Moles/volume] in Serum or Plasma 3.7 [facility] ([facility]) Blood Urea Nitrogen 14 5-21 [facility] ([facility]) Creatinine 1.00 0.6-1.5 [facility] ([facility]) Glomerular filtration rate/1.73 sq M.pre dicted [Volume Rate/Area] in Serum or Plasma by Creatinine-based formula (MDRD) 60.0 MEDENT ([facility]) ID Date Data Source [id number] 05/26/2020 12:42:00 PM EST MEDENT ([facility]) Name Value Range Interpretation Code Description Data Concha rce(s) Supporting Document(s) Aspartate aminotransferase [Enzymatic activity/volume] in Serum or Plasma 19 [facility] ([facility]) Alkaline phosphatase [Enzymatic activity/volume] in Serum or Plasma 9 0 MED[facility] ([facility]) Alanine aminotransferase [Enzymatic activity/volume] in Serum or Pl asma 43 MEDENT ([facility]) Bilirubin.total [Mass/volume] in Serum or Plasma 0.2 MEDENT ([facility]) Bilirubin.direct [Mass/volume] in Serum or Plasma 0.1 [facility] ([facility]) Protein [Mass/volume] in Serum or Plasma 7.3 [facility] ([facility]) Albumin [Mass/volume] in Serum or Plasma 4.3 MED[facility] ([facility]) Cholesterol [Mass/volume] in Serum or Plasma Laboratory test result [facility]ENT ([facility]) ID Date Data Source [id number] 05/26/2020 12:42:00 PM EST MED[facility] ([facility]) Name Value Range Interpretation Code Description Data Concha rce(s) Supporting Document(s) Creatine kinase [Enzymatic activity/volume] in Serum or Plasma 58 41-270 [facility] ([facility]) CPK-MB 1.0 MED[facility] ([facility]) MB/CK Relative 1.72 [facility] ([facility]) ID Date Data Source [id number] 05/26/2020 12:42:00 PM EST [facility] ([facility]) Name Value Range Interpretation Code Description Data Concha rce(s) Supporting Document(s) White Blood Count 11.0 4.3-10.9 [facility] ([facility]) Red Blood Count 4.66 4.70-6.20 [facility] ([facility]) Platelets 348 130-400 [facility] [facility]) Hemoglobin 14.0 13.0-17.0 MEDENT ([facility]) Hematocrit 43.9 39.0-50.0 [facility] ([facility]) ID Date Data Source [id number] 05/14/2020 12:00:00 AM EST ROXANA Name Value Range Interpretation Code Description Data Concha rce(s) Supporting Document(s) Carestart Rapid COVID Antigen Test [facility] This lab was reported by Desean daniels. Procedure Social History Code Duration Value Status Description Data Source(s ) Smoking 02/23/2021 12:00:00 AM EDT Current Smoker completed Curre nt Smoker eCW1 ([facility]) Smoking 02/04/2021 12:00:00 AM EDT Current Smoker completed Curre nt Smoker eCW1 ([facility]) Smoking 11/30/2020 12:00:00 AM EDT Current Smoker completed Curre nt Smoker eCW1 ([facility]) Smoking 11/30/2020 12:00:00 AM EDT Current Smoker completed Curre nt Smoker eCW1 ([facility]) Smoking 10/06/2020 12:00:00 AM EDT Current Smoker completed Curre nt Smoker eCW1 ([facility]) Smoking 10/06/2020 12:00:00 AM EDT Current Smoker completed Curre nt Smoker eCW1 ([facility]) Smoking 10/06/2020 12:00:00 AM EDT Current Smoker completed Curre nt Smoker eCW1 ([facility]) Smoking 08/06/2020 12:00:00 AM EDT Current Smoker completed Curre nt Smoker eCW1 ([facility]) Smoking 07/08/2020 12:00:00 AM EST Current Smoker completed Curre nt Smoker eCW1 ([facility]) Vital Signs ID Date Data Source UNK Name Value Range Interpretation Code Description Data Source(s) Body weight 202.4 [lb_av] 202.4 [lb_av] eCW1 ([facility]) Body weight 91.81 kg 91.81 kg eCW1 ([facility]) Body height 65 [in_i] 65 [in_i] eCW1 ([facility]) Body mass index (BMI) [Ratio] 33.68 kg/m2 33.68 kg/m2 eCW1 ([facility]) Systolic blood pressure 116 mm[Hg] 116 mm[Hg] e CW1 ([facility]) Diastolic blood pressure 78 mm[Hg] 78 mm[Hg] eCW1 ([facility]) Body weight 207.2 [lb_av] 207.2 [lb_av] eCW1 ([facility]) Body weight 93.99 kg 93.99 kg eCW1 ([facility]) Body height 65 [in_i] 65 [in_i] eCW1 ([facility]) Body mass index (BMI) [Ratio] 34.48 kg/m2 34.48 kg/m2 eCW1 ([facility]) Heart rate 109 /min 109 /min eCW1 ([facility]) Respiratory rate 18 /min 18 /min eCW1 ([facility]) Body temperature 98.2 [degF] 98.2 [degF] eCW1 ( [facility]) Systolic blood pressure 118 mm[Hg] 118 mm[Hg] e CW1 ([facility]) Diastolic blood pressure 80 mm[Hg] 80 mm[Hg] eCW1 ([facility]) Body weight 211 [lb_av] 211 [lb_av] eCW1 ([facility] includes the [facility]) Body height 65 [in_i] 65 [in_i] eCW1 ([facility]) Body mass index (BMI) [Ratio] 35.11 kg/m2 35.11 kg/m2 eCW1 ([facility]) Systolic blood pressure 122 mm[Hg] 122 mm[Hg] e CW1 ([facility]) Diastolic blood pressure 74 mm[Hg] 74 mm[Hg] eCW1 ([facility]) Body weight 206 [lb_av] 206 [lb_av] eCW1 (Count includes the [facility]) Body height 65 [in_i] 65 [in_i] eCW1 ([facility]) Body mass index (BMI) [Ratio] 34.28 kg/m2 34.28 kg/m2 eCW1 ([facility]) Systolic blood pressure 122 mm[Hg] 122 mm[Hg] e CW1 ([facility]) Diastolic blood pressure 76 mm[Hg] 76 mm[Hg] eCW1 ([facility]) Body weight 202 [lb_av] 202 [lb_av] eCW1 (Count includes the [facility]) Body height 65 [in_i] 65 [in_i] eCW1 ([facility]) Body mass index (BMI) [Ratio] 33.61 kg/m2 33.61 kg/m2 eCW1 ([facility]) Heart rate 82 /min 82 /min eCW1 ([facility]) Respiratory rate 18 /min 18 /min eCW1 ([facility]) Body temperature 99.9 [degF] 99.9 [degF] eCW1 ( [facility]) Systolic blood pressure 128 mm[Hg] 128 mm[Hg] e CW1 ([facility]) Diastolic blood pressure 74 mm[Hg] 74 mm[Hg] eCW1 ([facility]) Body height 66 [in_i] 66 [in_i] [facility] ([facility]) 5'6" Body mass index (BMI) [Ratio] 33.2 kg/m2 33.2 k g/m2 [facility] ([facility]) Heart rate 78 /min 78 /min [facility] ([facility]) regular Body weight 206.00 [lb_av] 206.00 [lb_av] MEDEN T ([facility]) Systolic blood pressure--sitting 122 mm[Hg] 122 mm[Hg] [facility] ([facility]) Medium cuff, Ra; 126/74 [place] Diastolic blood pressure--sitting 72 mm[Hg] 72 mm[Hg] [facility] ([facility]) Medium cuff, Ra; 126/74 [place] Systolic blood pressure--supine 115 mm[Hg] 115 mm[Hg] MED[facility] ([facility]) Ra Diastolic blood pressure--supine 64 mm[Hg] 64 mm[Hg] MED[facility] ([facility]) Ra Respiratory rate 16 /min 16 /min MED[facility] ( [facility]) Body weight 201 [lb_av] 201 [lb_av] eCW1 ([facility] includes the [facility]) Body height 65 [in_i] 65 [in_i] eCW1 ([facility]) Body mass index (BMI) [Ratio] 33.44 kg/m2 33.44 kg/m2 eCW1 ([facility]) Heart rate 76 /min 76 /min eCW1 ([facility]) Respiratory rate 18 /min 18 /min eCW1 ([facility]) Body temperature 97.8 [degF] 97.8 [degF] eCW1 ( [facility]) Systolic blood pressure 112 mm[Hg] 112 mm[Hg] e CW1 ([facility]) Diastolic blood pressure 64 mm[Hg] 64 mm[Hg] eCW1 ([facility]) Patient Treatment Plan of Care Planned Activity Planned Date Details Description Data Source (s) Spironolactone 50 MG Oral Tablet 02/23/2021 12:00:00 AM EDT eCW1 ([facility]) Tretinoin 0.25 MG/ML Topical Cream 10/06/2020 12:00:00 AM EDT eCW1 ([facility]) Clindamycin 10 MG/ML Topical Lotion 10/06/2020 12:00:00 AM EDT eCW1 ([facility]) Tretinoin 0.25 MG/ML Topical Cream 10/06/2020 12:00:00 AM EDT eCW1 ([facility]) Clindamycin 10 MG/ML Topical Lotion 10/06/2020 12:00:00 AM EDT eCW1 ([facility]) Tretinoin 0.25 MG/ML Topical Cream 10/06/2020 12:00:00 AM EDT eCW1 ([facility]) Clindamycin 10 MG/ML Topical Lotion 10/06/2020 12:00:00 AM EDT eCW1 ([facility]) Escitalopram 10 MG Oral Tablet 07/08/2020 12:00:00 AM EST eCW1 ([facility])
[2021-03-21 09:53] LABS: BASO % 0.4 % (0.0-1.0); EOS % 0.4 % (0.0-3.0); HEMATOCRIT 40.6 % (36.0-47.0); HEMOGLOBIN 13.5 g/dl (12.0-15.5); LYMPH # 1.5 10^3/uL (1.5-5.0); MEAN CORPUSCULAR HEMOGLOBIN 31.3 pg (27.0-33.0); MEAN CORPUSCULAR HGB CONC 33.3 g/dl (32.0-36.5); MONO # 0.6 10^3/uL (0.0-0.8); MONO % 7.1 % (2.0-8.0); NEUTROPHILS % 73.7 % (36.0-66.0); PLATELET COUNT, AUTOMATED 393 10^3/uL (150-450); RED BLOOD COUNT 4.32 10^6/uL (4.00-5.40); WHITE BLOOD COUNT 8.1 10^3/uL (4.0-10.0)
--- NOTE | 2021-03-21 10:03 | REP ---
INDICATION: numbness, tingling L side face, autumn arm numbness. COMPARISON: CT 12/31/2016. TECHNIQUE: CT BRAIN PERFORMED IN THE AXIAL PLANE. CORONAL RECONSTRUCTION IMAGES ARE PERFORMED. FINDINGS: THE VENTRICLES ARE NORMAL IN SIZE AND POSITION. THERE IS NO MIDLINE SHIFT OR MASS EFFECT. HAYS-WHITE DIFFERENTIATION IS WELL MAINTAINED. THERE IS NO ACUTE INTRACRANIAL HEMORRHAGE OR EXTRA-AXIAL FLUID COLLECTION. BONE WINDOW EXAMINATION IS UNREMARKABLE. VISUALIZED MASTOID AIR CELLS AND PARANASAL SINUSES ARE CLEAR. IMPRESSION: NEGATIVE NONCONTRAST CT BRAIN. <Electronically signed by Troy Meredith > 03/21/21 1000
--- NOTE | 2021-03-21 10:12 | REP ---
INDICATION: recent fall, tenderness R ribs, concern pneumothorax. COMPARISON: CT 05/26/2020. TECHNIQUE: Noncontrast scanning through the chest with coronal and sagittal reconstructions. FINDINGS: Lung castaneda are well inflated and clear. No effusion, pleural thickening, infiltrate, atelectasis, mass or pneumothorax. There is no pneumomediastinum or pneumopericardium. Heart is not enlarged there is no pericardial thickening or effusion. The aorta is without aneurysm. There is no pathologic sized mediastinal, hilar, axillary or supraclavicular adenopathy. Chest wall soft tissues are symmetric and normal. Bone windows show the sternum, manubrium, clavicles, scapulae, AC and glenohumeral joints, small visualized portions of humeral heads, posterior rib articulations and visualized ribs all without fracture or focal lesion. Spine shows no compression deformity. There are sclerotic foci in the superior endplate of T9 and the inferior endplate of T10 consistent with bone islands. Anterior rib cartilages are unremarkable. The upper abdomen shows that portion of liver, upper poles of kidneys and bowel loops included in the field of view to be unremarkable. Stomach without hiatal hernia. Gallbladder surgically absent. Visualized pancreas unremarkable. Adrenals normal. Upper abdominal aorta unremarkable. IMPRESSION: 1. There is no CT evidence of rib fracture, other bony abnormality in the chest, pneumothorax, pleural effusion or acute infiltrate. 2. Negative CT. <Electronically signed by Troy Meredith > 03/21/21 [id number]
[2021-03-21] MEDS ORDERED: ONDANSETRON 4MG/2ML VIAL IV ONE (10:30)
[2021-03-21 10:31] LABS: ALBUMIN 3.8 GM/DL (3.2-5.2); ALT/SGPT 56 U/L (12-78); BILIRUBIN,DIRECT 0.3 MG/DL (0.0-0.2); BILIRUBIN,TOTAL 0.9 MG/DL (0.2-1.0); BLOOD UREA NITROGEN 16 MG/DL (7-18); CALCIUM LEVEL 9.1 MG/DL (8.5-10.1); CARBON DIOXIDE LEVEL 22 MEQ/L (21-32); CHLORIDE LEVEL 107 MEQ/L (98-107); CPK CREATINE PHOSPHOKINASE 107 U/L (26-192); CREATININE FOR GFR 0.86 MG/DL (0.55-1.30); FREE T4 1.26 NG/DL (0.76-1.46); GLOMERULAR FILTRATION RATE > 60.0 (>60); GLUCOSE, FASTING 92 MG/DL (70-100); MB/CK RELATIVE INDEX 0.93 (< OR =4); POTASSIUM SERUM 3.7 MEQ/L (3.5-5.1); SODIUM LEVEL 138 MEQ/L (136-145); THYROID STIMULATING HORMONE 0.214 uIU/ML (0.358-3.740); TOTAL PROTEIN 6.8 GM/DL (6.4-8.2); TROPONIN I < 0.02 NG/ML (< 0.10)
[2021-03-21 11:48] LABS: AMPHETAMINES LEVEL URINE NEGATIVE (NEGATIVE); BARBITURATES URINE NEGATIVE (NEGATIVE); BENZODIAZEPINES URINE NEGATIVE (NEGATIVE); CANNABINOIDS URINE POSITIVE (NEGATIVE); COCAINE METABOLITE URINE NEGATIVE (NEGATIVE); METHADONE URINE NEGATIVE (NEGATIVE); OPIATES URINE NEGATIVE (NEGATIVE); PHENCYCLIDINE URINE NEGATIVE (NEGATIVE)
[2021-03-21 12:02] VITALS: BP 136/65
--- NOTE | 2021-03-21 20:19 | ECGEPIP ---
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
== END 2021-03-21 12:13 | disposition home or self-care (01) ==
LOC: M ED 09:09
DX: R20.2 Paresthesia of skin (principal); R94.6 Abnormal results of thyroid function studies; R07.89 Other chest pain; F33.9 Major depressive disorder, recurrent, unspecified; F41.9 Anxiety disorder, unspecified; R00.2 Palpitations; Z79.899 Other long term (current) drug therapy; F17.210 Nicotine dependence, cigarettes, uncomplicated; F12.20 Cannabis dependence, uncomplicated; Z88.0 Allergy status to penicillin; Z88.5 Allergy status to narcotic agent
CPT/HCPCS: 36415; 70450; 71250; 80048; 80076; 80307; 82550; 82553; 84439; 84443; 84484; 85025; 86850; 86900; 86901; 93005; 96374; 99284; J2405

== ENCOUNTER 2021-09-30 09:44 | Emergency (ER) | payer BC ==
[~2021-09-30] VITALS: Ht 167.6 cm; Wt 78.4 kg
[~2021-09-30 09:44] MED LIST changes: +acne med PO
[2021-09-30] MEDS ORDERED: LEXA1TAB2 (10:24)
[2021-09-30 13:39] VITALS: BP 120/65
== END 2021-09-30 13:40 | disposition home or self-care (01) ==
LOC: M ED 09:44
DX: J02.9 Acute pharyngitis, unspecified (principal); R05.9 Cough, unspecified; J45.909 Unspecified asthma, uncomplicated; F32.A Depression, unspecified; F41.9 Anxiety disorder, unspecified; Z88.1 Allergy status to other antibiotic agents; Z88.6 Allergy status to analgesic agent; Z79.899 Other long term (current) drug therapy; Z90.710 Acquired absence of both cervix and uterus; F17.200 Nicotine dependence, unspecified, uncomplicated

== ENCOUNTER → 2022-04-14 | Outpatient (CLI) | payer BC ==
[~2022-04-14] MED LIST changes: +LEXA1TAB PO; +LEXA1TAB2; +VENTAER INH
== END ==
LOC: M LABSMTC 10:08
PROVIDERS: ATTEND Anesthesiology
DX: Z01.818 Encounter for other preprocedural examination (principal); Z11.52 Encounter for screening for COVID-19

== ENCOUNTER 2022-04-19 11:13 | Day surgery (SDC) | payer BC ==
[~2022-04-19] VITALS: Ht 167.6 cm; Wt 81.2 kg
[~2022-04-19 11:13] MED LIST changes: +NS 1,000 ML IV ONE
[2022-04-19] MEDS ORDERED: LIDOCAINE 2% 100MG/5ML SDV (FOR ANES.) As Ordered ONE (12:31)
[2022-04-19] MEDS ORDERED: propofoL 500 MG/50 ML VIAL As Ordered ONE (13:26)
[2022-04-19] MEDS ORDERED: propofoL 200 MG/20 ML VIAL As Ordered ONE (13:26)
[2022-04-19 13:45] VITALS: BP 95/51
== END 2022-04-19 14:00 | disposition home or self-care (01) ==
LOC: M OPP 11:13
PROVIDERS: ATTEND Internal Medicine Gastroenterology
DX: K92.1 Melena (principal); D12.5 Benign neoplasm of sigmoid colon; K64.8 Other hemorrhoids; K44.9 Diaphragmatic hernia without obstruction or gangrene; K21.9 Gastro-esophageal reflux disease without esophagitis; F41.9 Anxiety disorder, unspecified; F32.A Depression, unspecified; J45.909 Unspecified asthma, uncomplicated; F17.210 Nicotine dependence, cigarettes, uncomplicated; Z88.1 Allergy status to other antibiotic agents; Z88.5 Allergy status to narcotic agent; Z79.899 Other long term (current) drug therapy

== ENCOUNTER → 2023-04-29 | Outpatient (CLI) | payer BC ==
[~2023-04-29] MED LIST changes: -NS 1,000 ML IV ONE
== END ==
LOC: M RAD 14:30
PROVIDERS: ATTEND Student in an Organized Health Care Education/Training Program
DX: M25.561 Pain in right knee (principal)

== ENCOUNTER → 2023-12-26 | Outpatient (CLI) | payer OTHER ==
[~2023-12-26] MED LIST changes: +ONDA-282 PO; -ONDA4TAB6 PO
[2023-12-26 15:25] LABS: HEMATOCRIT 40.3 % (36.0-47.0); HEMOGLOBIN 13.1 g/dl (12.0-15.5); MEAN CORPUSCULAR HEMOGLOBIN 31.2 pg (27.0-33.0); MEAN CORPUSCULAR HGB CONC 32.5 g/dl (32.0-36.5); PLATELET COUNT, AUTOMATED 367 10^3/uL (150-450); WHITE BLOOD COUNT 8.4 10^3/uL (4.0-10.0)
[2023-12-26 15:56] LABS: HEMOGLOBIN A1c 4.8 % (4.0-6.0)
[2023-12-26 15:56] LABS: FREE T4 1.06 NG/DL (0.89-1.76); THYROID STIMULATING HORMONE 2.064 uIU/ML (0.55-4.78)
[2023-12-26 15:57] LABS: ALBUMIN 3.7 G/DL (3.2-5.2); ALKALINE PHOSPHATASE 72 U/L (46-116); ALT/SGPT 13 U/L (7.0-40); AST/SGOT 11 U/L (<34); BILIRUBIN,TOTAL 0.2 MG/DL (0.3-1.2); BLOOD UREA NITROGEN 18 MG/DL (9-23); CARBON DIOXIDE LEVEL 26 MMOL/L (20-31); CHLORIDE LEVEL 112 MMOL/L (98-107); CHOLESTEROL LEVEL 154 MG/DL (<200); CHOLESTEROL RISK RATIO 3.86 (<5); CREATININE FOR GFR 0.86 MG/DL (0.55-1.30); GLOMERULAR FILTRATION RATE > 60.0 (>60); GLUCOSE, FASTING 92 MG/DL (60-100); HDL CHOLESTEROL 39.8 MG/DL (>40); LDL CHOLESTEROL 103.6 MG/DL (<100); NON-HDL-C 114.2 MG/DL; POTASSIUM SERUM 4.9 MMOL/L (3.5-5.1); SODIUM LEVEL 141 MMOL/L (136-145); TOTAL PROTEIN 6.4 G/DL (5.7-8.2); TRIGLYCERIDES LEVEL 53 MG/DL (<150)
[2023-12-26 16:22] LABS: HIV 1&2 SCREEN NEGATIVE (NEGATIVE)
[2023-12-26 16:51] LABS: GC DNA AMPLIFICATION NEGATIVE (NEGATIVE)
== END ==
LOC: M PLALAB 11:49
DX: Z11.3 Encounter for screening for infections with a predominantly sexual mode of transmission (principal); Z13.220 Encounter for screening for lipoid disorders; Z13.1 Encounter for screening for diabetes mellitus; Z76.89 Persons encountering health services in other specified circumstances; Z13.29 Encounter for screening for other suspected endocrine disorder

== ENCOUNTER → 2024-02-14 | Outpatient (CLI) | payer OTHER | LOC: M PLALAB 10:48 | DX: Z11.59 Encounter for screening for other viral diseases (principal); Z00.00 Encounter for general adult medical examination without abnormal findings ==

== ENCOUNTER → 2024-03-20 | Outpatient (CLI) | payer OTHER | LOC: M WHC 08:43 | DX: N63.25 Unspecified lump in the left breast, overlapping quadrants (principal); R92.333 Mammographic heterogeneous density, bilateral breasts; Z97.8 Presence of other specified devices | CPT/HCPCS: 76641; 77066; G0279 ==

== ENCOUNTER → 2024-03-26 | Outpatient (REF) | payer OTHER | LOC: M PLALAB 10:27 | PROVIDERS: ATTEND Obstetrics & Gynecology | DX: A63.0 Anogenital (venereal) warts (principal) ==

== ENCOUNTER 2024-08-28 14:59 | Emergency (ER) | payer OTHER ==
[~2024-08-28] VITALS: Ht 167.6 cm; Wt 86.1 kg
[2024-08-28 17:32] LABS: HEMATOCRIT 37.5 % (36.0-47.0); HEMOGLOBIN 12.5 g/dl (12.0-15.5); MEAN CORPUSCULAR HEMOGLOBIN 31.4 pg (27.0-33.0); MEAN CORPUSCULAR HGB CONC 33.3 g/dl (32.0-36.5); MEAN CORPUSCULAR VOLUME 94.2 fl (80.0-96.0); PLATELET COUNT, AUTOMATED 354 10^3/uL (150-450); RED BLOOD COUNT 3.98 10^6/uL (4.00-5.40); WHITE BLOOD COUNT 7.8 10^3/uL (4.0-10.0)
[2024-08-28 17:51] LABS: LIPASE 29 U/L (12-53)
[2024-08-28 17:53] LABS: ALBUMIN 3.6 G/DL (3.2-5.2); ALKALINE PHOSPHATASE 76 U/L (35-104); ALT/SGPT 30 U/L (7.0-40); AST/SGOT 20 U/L (<34); BILIRUBIN,DIRECT < 0.1 MG/DL (<0.4); BILIRUBIN,TOTAL 0.2 MG/DL (0.3-1.2); BLOOD UREA NITROGEN 17 MG/DL (9-23); CALCIUM LEVEL 8.8 MG/DL (8.5-10.1); CARBON DIOXIDE LEVEL 28 MMOL/L (20-31); CHLORIDE LEVEL 112 MMOL/L (98-107); GLOMERULAR FILTRATION RATE > 90.0 (>60); GLUCOSE, FASTING 93 MG/DL (60-100); POTASSIUM SERUM 4.6 MMOL/L (3.5-5.1); SODIUM LEVEL 146 MMOL/L (136-145); TOTAL PROTEIN 6.3 G/DL (5.7-8.2)
[2024-08-28 18:17] LABS: KETONE, URINE AUTO RFX NEGATIVE (NEGATIVE); MUCUS, URINE RFX LARGE (NEGATIVE); NITRITE, URINE AUTO RFX NEGATIVE (NEGATIVE); RBC, URINE AUTO RFX 3 /HPF (0-3); SQUAM EPITHELIAL CELL UR AURFX 6 /HPF (0-6); WBC, URINE AUTO RFX 10 /HPF (0-3)
[2024-08-28 18:19] LABS: LEUKOCYTE ESTERASE UR AUTO RFX TRACE (NEGATIVE)
[2024-08-28 18:30] LABS: HCG, SERUM QUALITATIVE NEGATIVE (NEGATIVE)
[2024-08-28 18:35] LABS: ATYPICAL LYMPH 10 % (0-5); EOSINOPHILS 3 % (0-3); LYMPHOCYTES 27 % (16-44); MONOCYTES 5 % (0-5); NEUTROPHILS 55 % (28-66); PLATELET ESTIMATE NORMAL (NORMAL)
[2024-08-28 22:20] LABS: C REACTIVE PROTEIN QUANTITATIV < 0.50 MG/DL (<1.0)
[2024-08-28 22:25] LABS: ERYTHROCYTE SEDIMENTATION RATE 15 mm/hr (0-20)
[2024-08-28] MEDS: KETOROLAC 30 MG/ML 1ML VIAL IM ONE (22:25)
[2024-08-28 22:33] VITALS: BP 143/76; TEMP 97.2; O2SAT 100
[2024-08-28] MEDS ORDERED: PRED20TA PO (23:30)
[2024-08-28] MEDS ORDERED: KETO10TAB PO (23:30)
== END 2024-08-28 23:43 | disposition home or self-care (01) ==
LOC: M ED 14:59
DX: R19.7 Diarrhea, unspecified (principal); M13.0 Polyarthritis, unspecified; J45.909 Unspecified asthma, uncomplicated; F17.210 Nicotine dependence, cigarettes, uncomplicated; Z88.1 Allergy status to other antibiotic agents; Z88.5 Allergy status to narcotic agent; Z79.51 Long term (current) use of inhaled steroids; Z79.2 Long term (current) use of antibiotics; Z79.52 Long term (current) use of systemic steroids
CPT/HCPCS: 80048; 80076; 81001; 83690; 84703; 85025; 85652; 86140; 87086; 96372; 99284; J1885

== ENCOUNTER → 2024-08-29 | Outpatient (REF) | payer OTHER ==
[~2024-08-29] MED LIST changes: +KETO10TAB PO; +PRED20TA PO
== END ==
LOC: M LAB REF 13:12
PROVIDERS: ATTEND Student in an Organized Health Care Education/Training Program
DX: R19.7 Diarrhea, unspecified (principal)

== ENCOUNTER → 2025-02-22 | Outpatient (REF) | payer OTHER | LOC: M LAB REF 17:33 | PROVIDERS: ATTEND Physician Assistant | DX: R21 Rash and other nonspecific skin eruption (principal) ==